=== PATIENT | female | born 1970 | race Caucasian/White ===

== ENCOUNTER 2021-02-06 19:47 | Inpatient (IN) ==
[2021-02-06] MEDS ORDERED: SODIUM CHLORIDE 0.9% 500 ML IV SCH (21:45)
[2021-02-06] MEDS ORDERED: OPTIRAY 320 125ml IV ONE (21:59)
--- NOTE | 2021-02-06 22:02 | Emergency Department Note ---
Impression & Plan Dizziness, Stroke determined by clinical assessment, Facial droop ED Provider Note Provider: Jimy Lutz MD DATE OF SERVICE: 02/06/2021 CHIEF COMPLAINT: Dizziness, vision changes, fatigue HISTORY OF PRESENT ILLNESS: Patient is a 50-year-old female denies past medical history presenting here today stating just after 6:00 at around 6:10 PM began to feel dizzy and had visual changes while at work. Went to a friend's house and was driven here for further evaluation in a private vehicle. Denies nausea currently or any pain. Denies trauma. Denies fever or recent illness. Denies a history of similar. Reports that she had vomited several times earlier in the car on the way over but denies again nausea now. Denies abdominal pain or chest pain or difficulty breathing. Friend states that patient has seemed to worsen some and now seems to have some slight right facial droop and speech slurring and seemed more fatigued alerting nursing staff. Was alerted by nursing staff and came to see the patient at bedside. REVIEW OF SYSTEMS: A total of 10 review of systems was obtained and negative except as stated above in the HPI. 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 Head: normocephalic and atraumatic EYES: No injection, discharge or icterus. PERRL but has some disconjugate gaze with the left eye with some left lateral gaze preference. NECK: Trachea midline. Supple. ENT: Mucous membranes pink and moist. LUNGS: Airway patent. No retractions. Breath sounds clear HEART: Regular rate and rhythm. No chest wall tenderness ABDOMEN: Soft and non-tender, without guarding or rebound. SKIN: Acyanotic, warm, dry, without rashes EXTREMITIES: Without swelling, tenderness or deformity NEUROLOGICAL: No aphasia. Alert and oriented to location and events. Some slurred speech and some mild right facial droop at this time. Some slight drift in the right lower extremity as well as some slight weakness of the right upper extremity compared to left. Sensation to gross touch normal per her report in the extremities and face EK bpm normal sinus rhythm. No PVC or PAC. No acute ST segment elevation or depression. QTC 445. No previous available. CONTINUOUS CARDIAC MONITORING: was ordered and showed a heart rate of 70s bpm in normal sinus rhythm Patient's laboratory studies and imaging reviewed. Differential includes Infection, dehydration, metabolic abnormality, hypo/hyperglycemia, electrolyte disturbance, anemia, hypoxia, cardiac sources, intracerebral event, toxicologic, neurologic, as well as other pathologies. IMPRESSION/MEDICAL DECISION MAKING: Patient presents with acute onset of fatigue vision changes and dizziness with several episodes of vomiting approximately 6:10 PM today. Driven here in a private vehicle it was seen by myself around 9:50 PM after being alerted by nursing to some status changes on this patient while she was waiting due to high volume and acuity in the emergency department. Patient appears to have some disconjugate gaze appears somewhat fatigued with some slurring speech and slight right facial droop. Some slight right-sided weakness is appreciated. No total hemiplegia appreciated. No trauma reported. Does not appear meningitic. Question of this could be CVA and a stroke alert was immediately called upon my evaluation of the patient in the room. Taken to CT for immediate imaging. Blood work was sent. Could be a toxicologic or metabolic cause as well and blood work was sent. Discussed with telestroke at [place], Dr. Hammer. CT and CTAs were completed. No high-grade occlusion per stat rad on the CTAs. No acute intracranial bleed noted. Blood work returns with white blood cell count of 11.1. No anemia. No thrombocytopenia. Glucose within normal limits at 91. No transaminitis. No severe electrolyte abnormality. Thyroid function within normal limits. Patient exam again seems to have some slight right focality but does also appear to have some generally fatigued and nonfocal component. Alcohol level is undetectable. Again CT without evidence of intracranial bleed or large mass. Discussed with telestroke Dr Hammer. Patient unfortunately at this time outside the 3-hour window for TPA and within minutes of the 4-1/2-hour window clsoing do not feel she would be able to receive TPA in the window and this is not a reasonable option at this time in discussion with telestroke. NIH is mild at this point telestroke describes as approximately 5. No evidence of severe electrolyte abnormality. Again does not appear meningitic and do not feel she needs an LP at this point. Discussed with friend who is at bedside as well as the patient was actually appearing somewhat more alert. Again CTAs without evidence of acute basilar or vertebral occlusion at this time. Question of small possible brainstem stroke. Discussed with the patient. Patient fails swallow secondary to the facial droop and speech issues thus rectal aspirin ordered. Discussed with the patient the need for further work-up here as an inpatient. She was in agreement with this plan. DIAGNOSIS: Dizziness, stroke DISPOSITION: Hospitalist will evaluate Patient was agreeable with this plan. Preliminary Findings Only See Final Report For Complete Findings CTA NECK: No arterial occlusion, high-grade stenosis, aneurysm, or dissection. Emphysematous changes in the lungs. Radiologist: Deondre Almendarez MD Study ready at 22:16 and initial results transmitted at 22:22 Preliminary Findings Only See Final Report For Complete Findings CTA HEAD: No arterial occlusion, high-grade stenosis, aneurysm, or dissection. Radiologist: Deondre Almendarez MD Study ready at 22:17 and initial results transmitted at 22:20 Preliminary Findings Only See Final Report For Complete Findings CT HEAD: No acute intracranial hemorrhage, hydrocephalus, edema, mass effect, or acute cortical infarct. Mild scattered paranasal sinus mucosal thickening. Mastoid air cells are clear. Radiologist: Deondre Almendarez MD Study ready at 22:18 and initial results transmitted at 22:23 Past Med/Surg History Social History Smoking Status: Current every day smoker Preferred Language: French Feels Safe at Home: Yes Allergies Allergies Allergy/AdvReac Type Severity Reaction Status Date / Time No Known Allergies Allergy Verified 02/06/21 20:41 Home Meds Home Medications Medication Instructions Recorded Confirmed No Known Home Medications 02/06/21 02/06/21 Results & Data (ED) Vital Signs Vital Signs - 24 hr 02/06/21 19:50 02/06/21 20:30 02/06/21 20:36 Temperature 36.7 C Temperature Source Temporal Artery Scan Pulse Rate 72 70 71 Pulse Rate from SpO2 Sensor 70 71 Pulse Rhythm Respiratory Rate 20 25 H 17 Respiratory Effort / Characteristics Non-Labored Spontaneous Respiratory Depth Normal Blood Pressure 151/91 H 124/84 Blood Pressure Mean 111 97 Blood Pressure Position Standing Pulse Oximetry 98 93 93 Oxygen Delivery Method Room Air Sepsis New/Unexplained Change in Mental Status N/A Sepsis Action Taken by Nursing No Action Required 02/06/21 20:40 02/06/21 20:50 02/06/21 21:00 Temperature Temperature Source Pulse Rate 69 80 71 Pulse Rate from SpO2 Sensor 73 72 Pulse Rhythm Respiratory Rate 22 18 23 Respiratory Effort / Characteristics Respiratory Depth Blood Pressure Blood Pressure Mean Blood Pressure Position Pulse Oximetry 95 94 Oxygen Delivery Method Room Air Room Air Room Air Sepsis New/Unexplained Change in Mental Status Sepsis Action Taken by Nursing 02/06/21 21:10 02/06/21 21:20 02/06/21 21:30 Temperature Temperature Source Pulse Rate 71 72 70 Pulse Rate from SpO2 Sensor 71 72 70 Pulse Rhythm Respiratory Rate 22 20 20 Respiratory Effort / Characteristics Respiratory Depth Blood Pressure Blood Pressure Mean Blood Pressure Position Pulse Oximetry 95 94 94 Oxygen Delivery Method Room Air Room Air Room Air Sepsis New/Unexplained Change in Mental Status Sepsis Action Taken by Nursing 02/06/21 21:40 02/06/21 21:41 02/06/21 21:50 Temperature Temperature Source Pulse Rate 70 71 71 Pulse Rate from SpO2 Sensor 72 72 Pulse Rhythm Regular Respiratory Rate 19 17 21 Respiratory Effort / Characteristics Respiratory Depth Blood Pressure Blood Pressure Mean Blood Pressure Position Pulse Oximetry 96 93 97 Oxygen Delivery Method Room Air Room Air Room Air Sepsis New/Unexplained Change in Mental Status Sepsis Action Taken by Nursing 02/06/21 22:04 02/06/21 22:09 02/06/21 22:11 Temperature Temperature Source Pulse Rate 81 81 Pulse Rate from SpO2 Sensor 79 Pulse Rhythm Respiratory Rate 22 29 H Respiratory Effort / Characteristics Respiratory Depth Blood Pressure 178/98 H Blood Pressure Mean 124 Blood Pressure Position Pulse Oximetry 98 Oxygen Delivery Method Room Air Room Air Room Air Sepsis New/Unexplained Change in Mental Status Sepsis Action Taken by Nursing 02/06/21 22:15 02/06/21 22:20 02/06/21 22:29 Temperature Temperature Source Pulse Rate 80 75 78 Pulse Rate from SpO2 Sensor 78 75 78 Pulse Rhythm Respiratory Rate 22 23 17 Respiratory Effort / Characteristics Respiratory Depth Blood Pressure 157/100 H 176/101 H Blood Pressure Mean 119 126 Blood Pressure Position Pulse Oximetry 99 98 97 Oxygen Delivery Method Room Air Room Air Room Air Sepsis New/Unexplained Change in Mental Status Sepsis Action Taken by Nursing 02/06/21 22:30 02/06/21 22:32 02/06/21 22:40 Temperature Temperature Source Pulse Rate 75 74 82 Pulse Rate from SpO2 Sensor 75 74 77 Pulse Rhythm Respiratory Rate 19 18 15 Respiratory Effort / Characteristics Respiratory Depth Blood Pressure 164/97 H Blood Pressure Mean 119 Blood Pressure Position Pulse Oximetry 98 97 95 Oxygen Delivery Method Room Air Room Air Room Air Sepsis New/Unexplained Change in Mental Status Sepsis Action Taken by Nursing 02/06/21 22:45 02/06/21 22:50 02/06/21 23:00 Temperature Temperature Source Pulse Rate 76 73 82 Pulse Rate from SpO2 Sensor 76 72 82 Pulse Rhythm Respiratory Rate 21 12 20 Respiratory Effort / Characteristics Respiratory Depth Blood Pressure 146/95 H 167/104 H Blood Pressure Mean 112 125 Blood Pressure Position Pulse Oximetry 98 98 98 Oxygen Delivery Method Room Air Room Air Room Air Sepsis New/Unexplained Change in Mental Status Sepsis Action Taken by Nursing 02/06/21 23:10 02/06/21 23:15 02/06/21 23:20 Temperature Temperature Source Pulse Rate 81 79 74 Pulse Rate from SpO2 Sensor 81 78 74 Pulse Rhythm Respiratory Rate 17 19 15 Respiratory Effort / Characteristics Respiratory Depth Blood Pressure 149/94 H Blood Pressure Mean 112 Blood Pressure Position Pulse Oximetry 98 98 98 Oxygen Delivery Method Room Air Room Air Room Air Sepsis New/Unexplained Change in Mental Status Sepsis Action Taken by Nursing Laboratory Data Result diagrams: 02/06/21 22:14 02/06/21 22:14 Lab Results 02/06/21 02/06/21 02/06/21 Range/Units 20:34 22:14 22:14 WBC 11.11 H (4.8-10.8) K/uL RBC 4.31 (4.2-5.4) M/uL Hgb 14.3 (12.0-16.0) g/dL Hct 41.1 (37-47) % MCV 95.4 (80-100) fL MCH 33.2 (25-34) pg MCHC 34.8 (32-36) g/dL RDW Std Deviation 45.0 (36.4-46.3) fL RDW Coeff of Kera 12.8 (11.5-14.5) % Plt Count 277 (130-400) K/uL MPV 9.0 (7.4-10.4) fL Immature Gran % (Auto) 0.2 % Neut % (Auto) 71.6 % Lymph % (Auto) 20.5 % [place] % (Auto) 5.5 % Eos % (Auto) 1.8 % Baso % (Auto) 0.4 % Neut # (Auto) 7.96 H (1.4-6.5) K/uL Lymph # (Auto) 2.28 (1.2-3.4) K/uL [place] # (Auto) 0.61 H (0.11-0.59) K/uL Eos # (Auto) 0.20 (0-0.5) K/uL Baso # (Auto) 0.04 (0-0.2) K/uL Immature Gran # (Auto) 0.02 (0.00-0.02) K/uL PT 10.5 (9.0-12.0) Seconds INR 1.0 (0.9-1.1) Sodium (136-145) mmol/L Potassium (3.5-5.1) mmol/L Chloride (98-107) mmol/L Carbon Dioxide (21-32) mmol/L Anion Gap (3-11) BUN (7-18) mg/dl Creatinine (0.6-1.2) mg/dl Est Cr Clr Drug Dosing ml/min Est GFR ( Amer) Est GFR (Non-Af Amer) BUN/Creatinine Ratio (10-20) Glucose (70-99) mg/dl POC Glucose 111 H (70-99) mg/dl Lactate (0.4-2.0) mmol/L Calcium (8.5-10.1) mg/dl Magnesium (1.8-2.4) mg/dl Total Bilirubin (0.2-1) mg/dl AST (15-37) U/L ALT (12-78) U/L Alkaline Phosphatase (45-117) U/L Troponin I (0-0.045) ng/ml Total Protein (6.4-8.2) gm/dl Albumin (3.4-5.0) gm/dl Globulin (2.5-4.0) gm/dl Albumin/Globulin Ratio (0.9-2) Lipase (73-393) U/L Procalcitonin (0-0.5) ng/ml TSH (0.300-4.500) uIu/ml Specimen Hemolysis Urine Color Urine Appearance (Clear) Urine pH (4.5-7.5) Ur Specific [place] (1.000-1.030) Urine Protein (Negative) Urine Glucose (UA) (Negative) Urine Ketones (Negative) Urine Blood (Negative) Urine Nitrite (Negative) Urine Bilirubin (Negative) Urine Urobilinogen (Negative) Ur Leukocyte Esterase (Negative) Urine Opiates Screen (Neg) Ur Methadone, Qual (Neg) Urine Barbiturates (Neg) Ur Phencyclidine (PCP) (Neg) U Amphetamin/Meth Scrn (Neg) MDMA (Ecstasy) Screen (Neg) U Benzodiazepines Scrn (Neg) Ur Cocaine Metabolite (Neg) U Marijuana (THC) Screen (Neg) Ethyl Alcohol mg/dL (0-3) mg/dl COVID-19 Eval Order SARS-CoV-2, RNA, NAAT (NEGATIVE) 02/06/21 02/06/21 02/06/21 Range/Units 22:14 22:14 22:14 WBC (4.8-10.8) K/uL RBC (4.2-5.4) M/uL Hgb (12.0-16.0) g/dL Hct (37-47) % MCV (80-100) fL MCH (25-34) pg MCHC (32-36) g/dL RDW Std Deviation (36.4-46.3) fL RDW Coeff of Kera (11.5-14.5) % Plt Count (130-400) K/uL MPV (7.4-10.4) fL Immature Gran % (Auto) % Neut % (Auto) % Lymph % (Auto) % [place] % (Auto) % Eos % (Auto) % Baso % (Auto) % Neut # (Auto) (1.4-6.5) K/uL Lymph # (Auto) (1.2-3.4) K/uL [place] # (Auto) (0.11-0.59) K/uL Eos # (Auto) (0-0.5) K/uL Baso # (Auto) (0-0.2) K/uL Immature Gran # (Auto) (0.00-0.02) K/uL PT (9.0-12.0) Seconds INR (0.9-1.1) Sodium 135 L (136-145) mmol/L Potassium 3.7 (3.5-5.1) mmol/L Chloride 105 (98-107) mmol/L Carbon Dioxide 27 (21-32) mmol/L Anion Gap 3.0 (3-11) BUN 8 (7-18) mg/dl Creatinine 0.73 (0.6-1.2) mg/dl Est Cr Clr Drug Dosing 64.3 ml/min Est GFR ( Amer) 112.9 Est GFR (Non-Af Amer) 97.4 BUN/Creatinine Ratio 11.4 (10-20) Glucose 88 (70-99) mg/dl POC Glucose (70-99) mg/dl Lactate (0.4-2.0) mmol/L Calcium 8.2 L (8.5-10.1) mg/dl Magnesium 2.1 (1.8-2.4) mg/dl Total Bilirubin 0.4 (0.2-1) mg/dl AST 6 L (15-37) U/L ALT 8 L (12-78) U/L Alkaline Phosphatase 46 (45-117) U/L Troponin I < 0.015 (0-0.045) ng/ml Total Protein 6.2 L (6.4-8.2) gm/dl Albumin 3.1 L (3.4-5.0) gm/dl Globulin 3.1 (2.5-4.0) gm/dl Albumin/Globulin Ratio 1.0 (0.9-2) Lipase 496 H (73-393) U/L Procalcitonin < 0.05 (0-0.5) ng/ml TSH 0.372 (0.300-4.500) uIu/ml Specimen Hemolysis Urine Color Urine Appearance (Clear) Urine pH (4.5-7.5) Ur Specific [place] (1.000-1.030) Urine Protein (Negative) Urine Glucose (UA) (Negative) Urine Ketones (Negative) Urine Blood (Negative) Urine Nitrite (Negative) Urine Bilirubin (Negative) Urine Urobilinogen (Negative) Ur Leukocyte Esterase (Negative) Urine Opiates Screen (Neg) Ur Methadone, Qual (Neg) Urine Barbiturates (Neg) Ur Phencyclidine (PCP) (Neg) U Amphetamin/Meth Scrn (Neg) MDMA (Ecstasy) Screen (Neg) U Benzodiazepines Scrn (Neg) Ur Cocaine Metabolite (Neg) U Marijuana (THC) Screen (Neg) Ethyl Alcohol mg/dL (0-3) mg/dl COVID-19 Eval Order SARS-CoV-2, RNA, NAAT (NEGATIVE) 03/16/21 03/16/21 03/16/21 Range/Units 22:14 22:15 22:29 WBC (4.8-10.8) K/uL RBC (4.2-5.4) M/uL Hgb (12.0-16.0) g/dL Hct (37-47) % MCV (80-100) fL MCH (25-34) pg MCHC (32-36) g/dL RDW Std Deviation (36.4-46.3) fL RDW Coeff of Kera (11.5-14.5) % Plt Count (130-400) K/uL MPV (7.4-10.4) fL Immature Gran % (Auto) % Neut % (Auto) % Lymph % (Auto) % [place] % (Auto) % Eos % (Auto) % Baso % (Auto) % Neut # (Auto) (1.4-6.5) K/uL Lymph # (Auto) (1.2-3.4) K/uL [place] # (Auto) (0.11-0.59) K/uL Eos # (Auto) (0-0.5) K/uL Baso # (Auto) (0-0.2) K/uL Immature Gran # (Auto) (0.00-0.02) K/uL PT (9.0-12.0) Seconds INR (0.9-1.1) Sodium (136-145) mmol/L Potassium (3.5-5.1) mmol/L Chloride (98-107) mmol/L Carbon Dioxide (21-32) mmol/L Anion Gap (3-11) BUN (7-18) mg/dl Creatinine (0.6-1.2) mg/dl Est Cr Clr Drug Dosing ml/min Est GFR ( Amer) Est GFR (Non-Af Amer) BUN/Creatinine Ratio (10-20) Glucose (70-99) mg/dl POC Glucose 91 (70-99) mg/dl Lactate (0.4-2.0) mmol/L Calcium (8.5-10.1) mg/dl Magnesium (1.8-2.4) mg/dl Total Bilirubin (0.2-1) mg/dl AST (15-37) U/L ALT (12-78) U/L Alkaline Phosphatase (45-117) U/L Troponin I (0-0.045) ng/ml Total Protein (6.4-8.2) gm/dl Albumin (3.4-5.0) gm/dl Globulin (2.5-4.0) gm/dl Albumin/Globulin Ratio (0.9-2) Lipase (73-393) U/L Procalcitonin (0-0.5) ng/ml TSH (0.300-4.500) uIu/ml Specimen Hemolysis Urine Color Urine Appearance (Clear) Urine pH (4.5-7.5) Ur Specific [place] (1.000-1.030) Urine Protein (Negative) Urine Glucose (UA) (Negative) Urine Ketones (Negative) Urine Blood (Negative) Urine Nitrite (Negative) Urine Bilirubin (Negative) Urine Urobilinogen (Negative) Ur Leukocyte Esterase (Negative) Urine Opiates Screen (Neg) Ur Methadone, Qual (Neg) Urine Barbiturates (Neg) Ur Phencyclidine (PCP) (Neg) U Amphetamin/Meth Scrn (Neg) MDMA (Ecstasy) Screen (Neg) U Benzodiazepines Scrn (Neg) Ur Cocaine Metabolite (Neg) U Marijuana (THC) Screen (Neg) Ethyl Alcohol mg/dL < 3.0 (0-3) mg/dl COVID-19 Eval Order Covid19 IDNow [email or web address] SARS-CoV-2, RNA, NAAT (NEGATIVE) 02/06/21 02/06/21 02/06/21 Range/Units 22:29 22:44 22:44 WBC (4.8-10.8) K/uL RBC (4.2-5.4) M/uL Hgb (12.0-16.0) g/dL Hct (37-47) % MCV (80-100) fL MCH (25-34) pg MCHC (32-36) g/dL RDW Std Deviation (36.4-46.3) fL RDW Coeff of Kera (11.5-14.5) % Plt Count (130-400) K/uL MPV (7.4-10.4) fL Immature Gran % (Auto) % Neut % (Auto) % Lymph % (Auto) % [place] % (Auto) % Eos % (Auto) % Baso % (Auto) % Neut # (Auto) (1.4-6.5) K/uL Lymph # (Auto) (1.2-3.4) K/uL [place] # (Auto) (0.11-0.59) K/uL Eos # (Auto) (0-0.5) K/uL Baso # (Auto) (0-0.2) K/uL Immature Gran # (Auto) (0.00-0.02) K/uL PT (9.0-12.0) Seconds INR (0.9-1.1) Sodium (136-145) mmol/L Potassium (3.5-5.1) mmol/L Chloride (98-107) mmol/L Carbon Dioxide (21-32) mmol/L Anion Gap (3-11) BUN (7-18) mg/dl Creatinine (0.6-1.2) mg/dl Est Cr Clr Drug Dosing ml/min Est GFR ( Amer) Est GFR (Non-Af Amer) BUN/Creatinine Ratio (10-20) Glucose (70-99) mg/dl POC Glucose (70-99) mg/dl Lactate (0.4-2.0) mmol/L Calcium (8.5-10.1) mg/dl Magnesium (1.8-2.4) mg/dl Total Bilirubin (0.2-1) mg/dl AST (15-37) U/L ALT (12-78) U/L Alkaline Phosphatase (45-117) U/L Troponin I (0-0.045) ng/ml Total Protein (6.4-8.2) gm/dl Albumin (3.4-5.0) gm/dl Globulin (2.5-4.0) gm/dl Albumin/Globulin Ratio (0.9-2) Lipase (73-393) U/L Procalcitonin (0-0.5) ng/ml TSH (0.300-4.500) uIu/ml Specimen Hemolysis Urine Color Yellow Urine Appearance Clear (Clear) Urine pH 7.0 (4.5-7.5) Ur Specific [place] > 1.045 H (1.000-1.030) Urine Protein Negative (Negative) Urine Glucose (UA) Negative (Negative) Urine Ketones Negative (Negative) Urine Blood Negative (Negative) Urine Nitrite Negative (Negative) Urine Bilirubin Negative (Negative) Urine Urobilinogen Negative (Negative) Ur Leukocyte Esterase Negative (Negative) Urine Opiates Screen Neg (Neg) Ur Methadone, Qual Neg (Neg) Urine Barbiturates Neg (Neg) Ur Phencyclidine (PCP) Neg (Neg) U Amphetamin/Meth Scrn Neg (Neg) MDMA (Ecstasy) Screen Neg (Neg) U Benzodiazepines Scrn Neg (Neg) Ur Cocaine Metabolite Neg (Neg) U Marijuana (THC) Screen Pos H (Neg) Ethyl Alcohol mg/dL (0-3) mg/dl COVID-19 Eval Order SARS-CoV-2, RNA, NAAT NEGATIVE (NEGATIVE) Administered Medications Discontinued Medications Aspirin (Aspirin 300 Mg Supp) 300 mg [place] ONE ONE Stop: 02/06/21 22:37 Last Admin: 02/06/21 22:51 Dose: 300 mg Documented by: [id number] Sodium Chloride (Nss) 500 mls @ 999 mls/hr IV .Q31M JULITO Stop: 02/06/21 22:15 Last Infusion: 02/06/21 23:20 Dose: 0 mls/hr Documented by: [id number] Admin: 02/06/21 22:47 Dose: 999 mls/hr Documented by: [id number] Ioversol (Optiray 320 125ml) 119 ml IV ONCE ONE Stop: 02/06/21 22:00 Last Admin: 02/06/21 22:00 Dose: 119 ml Documented by: [id number] Discharge Plan Visit Data Chief Complaint: Illness Stated Complaint: hypertension, vomiting, vision problems ED Provider: Jimy Lutz Discharge Problem: Dizziness, Stroke determined by clinical assessment, Facial droop Patient Disposition: Being Evaluated by Hospitalist Forms Stand Alone Forms: [facility] Prescriptions Prescriptions: No Action No Known Home Medications RF: 0 Referrals Referrals: Kristopher Newsome DO [Outside Practitioners] -
[2021-02-06 22:27] LABS: Basophils # (auto) 0.04 K/uL (0-0.2); Basophils % (auto) 0.4 %; Eosinophils % (auto) 1.8 %; Hematocrit (blood only) 41.1 % (37-47); Hemoglobin 14.3 g/dL (12.0-16.0); Immature Granulocytes # (auto) 0.02 K/uL (0.00-0.02); Immature Granulocytes % (auto) 0.2 %; Lymphocytes # (auto) 2.28 K/uL (1.2-3.4); Lymphocytes % (auto) 20.5 %; Mean Corpuscular Hemoglobin 33.2 pg (25-34); Mean Corpuscular Hgb Conc 34.8 g/dL (32-36); Mean Corpuscular Volume 95.4 fL (80-100); Monocytes # (auto) 0.61 K/uL (0.11-0.59); Monocytes % (auto) 5.5 %; Neutrophils # (auto) 7.96 K/uL (1.4-6.5); Neutrophils % (auto) 71.6 %; Platelet Count 277 K/uL (130-400); RDW Coefficient of Variation 12.8 % (11.5-14.5); Red Blood Count 4.31 M/uL (4.2-5.4); White Blood Count 11.11 K/uL (4.8-10.8)
[2021-02-06 22:36] LABS: Prothrombin Time 10.5 Seconds (9.0-12.0)
[2021-02-06] MEDS ORDERED: ASPIRIN 300 MG SUPP PR ONE (22:36)
[2021-02-06 22:47] LABS: Alanine Aminotransferase 8 U/L (12-78); Albumin Level 3.1 gm/dl (3.4-5.0); Aspartate Aminotransferase 6 U/L (15-37); BUN Creatinine Ratio 11.4 (10-20); Blood Urea Nitrogen 8 mg/dl (7-18); Calcium 8.2 mg/dl (8.5-10.1); Carbon Dioxide 27 mmol/L (21-32); Chloride 105 mmol/L (98-107); Creatinine Clr Calc Pharmacy 64.3 ml/min; Est GFR (African American) 112.9; Est GFR (Non-African American) 97.4; Glucose 88 mg/dl (70-99); Lipase 496 U/L (73-393); Magnesium 2.1 mg/dl (1.8-2.4); Potassium 3.7 mmol/L (3.5-5.1); Sodium 135 mmol/L (136-145)
[2021-02-06 22:53] LABS: Appearance Urine Clear (Clear); Bilirubin Urine Negative (Negative); Blood Urine Negative (Negative); Color Urine Yellow; Glucose Urine UA Negative (Negative); Ketones Urine Negative (Negative); Leukocyte Esterase Urine Negative (Negative); Nitrite Urine Negative (Negative); Protein Urine Negative (Negative); Specific Gravity Urine > 1.045 (1.000-1.030); Urobilinogen Urine Negative (Negative)
[2021-02-06 22:57] LABS: Alkaline Phosphatase 46 U/L (45-117); Bilirubin,Total 0.4 mg/dl (0.2-1); Globulin 3.1 gm/dl (2.5-4.0); Thyroid Stimulating Hormone 0.372 uIu/ml (0.300-4.500); Total Protein 6.2 gm/dl (6.4-8.2); Troponin I < 0.015 ng/ml (0-0.045)
[2021-02-06 23:11] LABS: Amphetamines+Metham, Urine Neg (Neg); Barbiturates, Urine Neg (Neg); Benzodiazepine, Urine Neg (Neg); Cocaine, Urine Neg (Neg); MDMA (Ecstacy), Urine Neg (Neg); Methadone, Urine Neg (Neg); Opiate, Urine Neg (Neg); Phencyclidine, Urine Neg (Neg)
--- NOTE | 2021-02-06 23:14 | History & Physical Report ---
Date of Service February 06, 2021 Assessment & Plan (1) CVA (cerebral vascular accident): 50 yo F no significant PMHx admitted for CVA work up. CVA: -Patient with dizziness, double vision, mild right sided weakness. -Telestroke consult placed, CT Head and CTA Head/Neck without acute findings. -Echo, Hgb A1c, and Lipid panel ordered for AM labs. -NPO until cleared by speech, then start daily aspirin and Plavix. -Atorvastatin 40mg daily ordered for when tolerates PO. -Neurology consult placed. -PT/OT orders placed. -Frequent neuro checks per protocol. Code Status: FULL CODE FEN: NPO until cleared by Speech DVT ppx: SCDs Dispo: Telemetry for Stroke Evaluation History of Present Illness Chief Complaint: double vision, dizziness, R sided weakness Primary Care Provider: Kristopher Newsome DO 50. yo F no significant PMHx presented to ER for complaints of dizziness, right sided facial droop, and diplopia. 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 A few hours after that she was with her friend and her friend mentioned that she thought she might have a facial droop on the right side, so she came to the ER. Was seen by ER provider around 9:50pm after being alerted by nursing to some status changes while she was waiting due to high volume and acuity in the emergency department. Stroke alert called. CT Head and CTA Head and Neck without acute findings. CBC and BMP within normal limits. Ethanol level normal, marijuana positive. Telestroke consult recommended MRI and inpatient admission for monitoring with possible concern for brainstem stroke. Patient was not a candidate for TPA due to being out of time interval. Hospitalist service consulted for admission. On my interview patient reports chest pain, shortness of breath, abdominal pain, nausea, headache. Does still endorse double vision, but reports that her right sided weakness feels somewhat better. Allergies Allergy/AdvReac Type Severity Reaction Status Date / Time No Known Allergies Allergy Verified 02/06/21 20:41 Home Medications Medication Instructions Recorded Confirmed Type No Known Home Medications 02/06/21 02/06/21 History Past Med/Surg History Medical History (Updated 02/07/21 @ 00:06 by Yaima Sutherland DO) No significant past medical history Surgical History (Updated 02/07/21 @ 00:07 by Yaima Sutherland DO) No significant past surgical history Family History (Updated 02/07/21 @ 00:06 by Yaima Sutherland DO) Other Coronary heart disease Diabetes Social History Smoking Status: Current every day smoker Preferred Language: Mongolian Feels Safe at Home: Yes Review of Systems Review of Systems: All systems reviewed & are unremarkable except as noted in HPI & below Constitutional: no fever, no chills and no malaise Respiratory: no cough and no dyspnea Cardiovascular: no chest pain, no palpitations and no edema Gastrointestinal: no abdominal pain, no constipation and no diarrhea/loose stools Genitourinary: no dysuria and no hematuria Physical Exam Constitutional: WD/WN, vitals as above Eyes: PERRL, conjunctivae normal, anicteric sclerae ENMT: external ear and nose normal, oropharynx normal Neck: normal visual inspection Respiratory: normal respiratory effort, lungs clear to auscultation Cardiovascular: RRR, no murmur, no edema Gastrointestinal (Abdomen): normal bowel sounds, soft, nontender, no hepatosplenomegaly Musculoskeletal: no cyanosis or clubbing. RUE and RLE 4/5 strength as compared to left side. Skin: no rashes, warm and dry Neurologic: AAOx3, normal speech. Right sided mild facial droop noted, which resolves with smile. PERRLA, EOMI, no nystagmus. Reports double vision. Noted to have dysconjugate gaze. Bilateral UE, LE, and face without sensory deficits. No pronator drift. No tremor. Psychiatric: A+Ox3, euthymic affect Results & Data Results & Data ([facility]) Vital Signs (Past 12 Hours) Vital Signs Temp Pulse Resp BP Pulse Ox 02/06/21 21:41 71 17 93 02/06/21 20:36 71 17 93 02/06/21 20:30 70 25 H 124/84 93 02/06/21 19:50 36.7 C 72 20 151/91 H 98 Laboratory Results Lab Results 02/06/21 02/06/21 02/06/21 Range/Units 20:34 22:14 22:14 WBC 11.11 H (4.8-10.8) K/uL RBC 4.31 (4.2-5.4) M/uL Hgb 14.3 (12.0-16.0) g/dL Hct 41.1 (37-47) % MCV 95.4 (80-100) fL MCH 33.2 (25-34) pg MCHC 34.8 (32-36) g/dL RDW Std Deviation 45.0 (36.4-46.3) fL RDW Coeff of Kera 12.8 (11.5-14.5) % Plt Count 277 (130-400) K/uL MPV 9.0 (7.4-10.4) fL Immature Gran % (Auto) 0.2 % Neut % (Auto) 71.6 % Lymph % (Auto) 20.5 % [place] % (Auto) 5.5 % Eos % (Auto) 1.8 % Baso % (Auto) 0.4 % Neut # (Auto) 7.96 H (1.4-6.5) K/uL Lymph # (Auto) 2.28 (1.2-3.4) K/uL [place] # (Auto) 0.61 H (0.11-0.59) K/uL Eos # (Auto) 0.20 (0-0.5) K/uL Baso # (Auto) 0.04 (0-0.2) K/uL Immature Gran # (Auto) 0.02 (0.00-0.02) K/uL PT 10.5 (9.0-12.0) Seconds INR 1.0 (0.9-1.1) Sodium (136-145) mmol/L Potassium (3.5-5.1) mmol/L Chloride (98-107) mmol/L Carbon Dioxide (21-32) mmol/L Anion Gap (3-11) BUN (7-18) mg/dl Creatinine (0.6-1.2) mg/dl Est Cr Clr Drug Dosing ml/min Est GFR ( Amer) Est GFR (Non-Af Amer) BUN/Creatinine Ratio (10-20) Glucose (70-99) mg/dl POC Glucose 111 H (70-99) mg/dl Lactate (0.4-2.0) mmol/L Calcium (8.5-10.1) mg/dl Magnesium (1.8-2.4) mg/dl Total Bilirubin (0.2-1) mg/dl AST (15-37) U/L ALT (12-78) U/L Alkaline Phosphatase (45-117) U/L Troponin I (0-0.045) ng/ml Total Protein (6.4-8.2) gm/dl Albumin (3.4-5.0) gm/dl Globulin (2.5-4.0) gm/dl Albumin/Globulin Ratio (0.9-2) Lipase (73-393) U/L Procalcitonin (0-0.5) ng/ml TSH (0.300-4.500) uIu/ml Specimen Hemolysis Urine Color Urine Appearance (Clear) Urine pH (4.5-7.5) Ur Specific [place] (1.000-1.030) Urine Protein (Negative) Urine Glucose (UA) (Negative) Urine Ketones (Negative) Urine Blood (Negative) Urine Nitrite (Negative) Urine Bilirubin (Negative) Urine Urobilinogen (Negative) Ur Leukocyte Esterase (Negative) Urine Opiates Screen (Neg) Ur Methadone, Qual (Neg) Urine Barbiturates (Neg) Ur Phencyclidine (PCP) (Neg) U Amphetamin/Meth Scrn (Neg) MDMA (Ecstasy) Screen (Neg) U Benzodiazepines Scrn (Neg) Ur Cocaine Metabolite (Neg) U Marijuana (THC) Screen (Neg) Ethyl Alcohol mg/dL (0-3) mg/dl COVID-19 Eval Order SARS-CoV-2, RNA, NAAT (NEGATIVE) 02/06/21 02/06/21 02/06/21 Range/Units 22:14 22:14 22:14 WBC (4.8-10.8) K/uL RBC (4.2-5.4) M/uL Hgb (12.0-16.0) g/dL Hct (37-47) % MCV (80-100) fL MCH (25-34) pg MCHC (32-36) g/dL RDW Std Deviation (36.4-46.3) fL RDW Coeff of K[place] (11.5-14.5) % Plt Count (130-400) K/uL MPV (7.4-10.4) fL Immature Gran % (Auto) % Neut % (Auto) % Lymph % (Auto) % [place] % (Auto) % Eos % (Auto) % Baso % (Auto) % Neut # (Auto) (1.4-6.5) K/uL Lymph # (Auto) (1.2-3.4) K/uL [place] # (Auto) (0.11-0.59) K/uL Eos # (Auto) (0-0.5) K/uL Baso # (Auto) (0-0.2) K/uL Immature Gran # (Auto) (0.00-0.02) K/uL PT (9.0-12.0) Seconds INR (0.9-1.1) Sodium 135 L (136-145) mmol/L Potassium 3.7 (3.5-5.1) mmol/L Chloride 105 (98-107) mmol/L Carbon Dioxide 27 (21-32) mmol/L Anion Gap 3.0 (3-11) BUN 8 (7-18) mg/dl Creatinine 0.73 (0.6-1.2) mg/dl Est Cr Clr Drug Dosing 64.3 ml/min Est GFR ( Amer) 112.9 Est GFR (Non-Af Amer) 97.4 BUN/Creatinine Ratio 11.4 (10-20) Glucose 88 (70-99) mg/dl POC Glucose (70-99) mg/dl Lactate (0.4-2.0) mmol/L Calcium 8.2 L (8.5-10.1) mg/dl Magnesium 2.1 (1.8-2.4) mg/dl Total Bilirubin 0.4 (0.2-1) mg/dl AST 6 L (15-37) U/L ALT 8 L (12-78) U/L Alkaline Phosphatase 46 (45-117) U/L Troponin I < 0.015 (0-0.045) ng/ml Total Protein 6.2 L (6.4-8.2) gm/dl Albumin 3.1 L (3.4-5.0) gm/dl Globulin 3.1 (2.5-4.0) gm/dl Albumin/Globulin Ratio 1.0 (0.9-2) Lipase 496 H (73-393) U/L Procalcitonin < 0.05 (0-0.5) ng/ml TSH 0.372 (0.300-4.500) uIu/ml Specimen Hemolysis Urine Color Urine Appearance (Clear) Urine pH (4.5-7.5) Ur Specific [place] (1.000-1.030) Urine Protein (Negative) Urine Glucose (UA) (Negative) Urine Ketones (Negative) Urine Blood (Negative) Urine Nitrite (Negative) Urine Bilirubin (Negative) Urine Urobilinogen (Negative) Ur Leukocyte Esterase (Negative) Urine Opiates Screen (Neg) Ur Methadone, Qual (Neg) Urine Barbiturates (Neg) Ur Phencyclidine (PCP) (Neg) U Amphetamin/Meth Scrn (Neg) MDMA (Ecstasy) Screen (Neg) U Benzodiazepines Scrn (Neg) Ur Cocaine Metabolite (Neg) U Marijuana (THC) Screen (Neg) Ethyl Alcohol mg/dL (0-3) mg/dl COVID-19 Eval Order SARS-CoV-2, RNA, NAAT (NEGATIVE) 02/06/21 02/06/21 02/06/21 Range/Units 22:14 22:15 22:29 WBC (4.8-10.8) K/uL RBC (4.2-5.4) M/uL Hgb (12.0-16.0) g/dL Hct (37-47) % MCV (80-100) fL MCH (25-34) pg MCHC (32-36) g/dL RDW Std Deviation (36.4-46.3) fL RDW Coeff of [place]era (11.5-14.5) % Plt Count (130-400) K/uL MPV (7.4-10.4) fL Immature Gran % (Auto) % Neut % (Auto) % Lymph % (Auto) % [place] % (Auto) % Eos % (Auto) % Baso % (Auto) % Neut # (Auto) (1.4-6.5) K/uL Lymph # (Auto) (1.2-3.4) K/uL [place] # (Auto) (0.11-0.59) K/uL Eos # (Auto) (0-0.5) K/uL Baso # (Auto) (0-0.2) K/uL Immature Gran # (Auto) (0.00-0.02) K/uL PT (9.0-12.0) Seconds INR (0.9-1.1) Sodium (136-145) mmol/L Potassium (3.5-5.1) mmol/L Chloride (98-107) mmol/L Carbon Dioxide (21-32) mmol/L Anion Gap (3-11) BUN (7-18) mg/dl Creatinine (0.6-1.2) mg/dl Est Cr Clr Drug Dosing ml/min Est GFR ( Amer) Est GFR (Non-Af Amer) BUN/Creatinine Ratio (10-20) Glucose (70-99) mg/dl POC Glucose 91 (70-99) mg/dl Lactate (0.4-2.0) mmol/L Calcium (8.5-10.1) mg/dl Magnesium (1.8-2.4) mg/dl Total Bilirubin (0.2-1) mg/dl AST (15-37) U/L ALT (12-78) U/L Alkaline Phosphatase (45-117) U/L Troponin I (0-0.045) ng/ml Total Protein (6.4-8.2) gm/dl Albumin (3.4-5.0) gm/dl Globulin (2.5-4.0) gm/dl Albumin/Globulin Ratio (0.9-2) Lipase (73-393) U/L Procalcitonin (0-0.5) ng/ml TSH (0.300-4.500) uIu/ml Specimen Hemolysis Urine Color Urine Appearance (Clear) Urine pH (4.5-7.5) Ur Specific [place] (1.000-1.030) Urine Protein (Negative) Urine Glucose (UA) (Negative) Urine Ketones (Negative) Urine Blood (Negative) Urine Nitrite (Negative) Urine Bilirubin (Negative) Urine Urobilinogen (Negative) Ur Leukocyte Esterase (Negative) Urine Opiates Screen (Neg) Ur Methadone, Qual (Neg) Urine Barbiturates (Neg) Ur Phencyclidine (PCP) (Neg) U Amphetamin/Meth Scrn (Neg) MDMA (Ecstasy) Screen (Neg) U Benzodiazepines Scrn (Neg) Ur Cocaine Metabolite (Neg) U Marijuana (THC) Screen (Neg) Ethyl Alcohol mg/dL < 3.0 (0-3) mg/dl COVID-19 Eval [facility] SARS-CoV-2, RNA, NAAT (NEGATIVE) 02/06/21 02/06/21 02/06/21 Range/Units 22:29 22:44 22:44 WBC (4.8-10.8) K/uL RBC (4.2-5.4) M/uL Hgb (12.0-16.0) g/dL Hct (37-47) % MCV (80-100) fL MCH (25-34) pg MCHC (32-36) g/dL RDW Std Deviation (36.4-46.3) fL RDW Coeff of Kera (11.5-14.5) % Plt Count (130-400) K/uL MPV (7.4-10.4) fL Immature Gran % (Auto) % Neut % (Auto) % Lymph % (Auto) % [place] % (Auto) % Eos % (Auto) % Baso % (Auto) % Neut # (Auto) (1.4-6.5) K/uL Lymph # (Auto) (1.2-3.4) K/uL [place] # (Auto) (0.11-0.59) K/uL Eos # (Auto) (0-0.5) K/uL Baso # (Auto) (0-0.2) K/uL Immature Gran # (Auto) (0.00-0.02) K/uL PT (9.0-12.0) Seconds INR (0.9-1.1) Sodium (136-145) mmol/L Potassium (3.5-5.1) mmol/L Chloride (98-107) mmol/L Carbon Dioxide (21-32) mmol/L Anion Gap (3-11) BUN (7-18) mg/dl Creatinine (0.6-1.2) mg/dl Est Cr Clr Drug Dosing ml/min Est GFR ( Amer) Est GFR (Non-Af Amer) BUN/Creatinine Ratio (10-20) Glucose (70-99) mg/dl POC Glucose (70-99) mg/dl Lactate (0.4-2.0) mmol/L Calcium (8.5-10.1) mg/dl Magnesium (1.8-2.4) mg/dl Total Bilirubin (0.2-1) mg/dl AST (15-37) U/L ALT (12-78) U/L Alkaline Phosphatase (45-117) U/L Troponin I (0-0.045) ng/ml Total Protein (6.4-8.2) gm/dl Albumin (3.4-5.0) gm/dl Globulin (2.5-4.0) gm/dl Albumin/Globulin Ratio (0.9-2) Lipase (73-393) U/L Procalcitonin (0-0.5) ng/ml TSH (0.300-4.500) uIu/ml Specimen Hemolysis Urine Color Yellow Urine Appearance Clear (Clear) Urine pH 7.0 (4.5-7.5) Ur Specific [place] > 1.045 H (1.000-1.030) Urine Protein Negative (Negative) Urine Glucose (UA) Negative (Negative) Urine Ketones Negative (Negative) Urine Blood Negative (Negative) Urine Nitrite Negative (Negative) Urine Bilirubin Negative (Negative) Urine Urobilinogen Negative (Negative) Ur Leukocyte Esterase Negative (Negative) Urine Opiates Screen Neg (Neg) Ur Methadone, Qual Neg (Neg) Urine Barbiturates Neg (Neg) Ur Phencyclidine (PCP) Neg (Neg) U Amphetamin/Meth Scrn Neg (Neg) MDMA (Ecstasy) Screen Neg (Neg) U Benzodiazepines Scrn Neg (Neg) Ur Cocaine Metabolite Neg (Neg) U Marijuana (THC) Screen Pos H (Neg) Ethyl Alcohol mg/dL (0-3) mg/dl COVID-19 Eval Order SARS-CoV-2, RNA, NAAT NEGATIVE (NEGATIVE) Diagnostic Findings CTA Head and Neck - Per STAT-rad - no arterial occlusion, high-grade stenosis, aneurysm or dissection. Emphysematous changes in lungs. CT Head - no acute intracranial hemorrhage, hydrocephalus, edema, mass effect or acute cortical infarct. Mild scattered paranasal sinus mucosal thickening. Mastoid air cells are clear. ECG Additional Comments: EKG with NSR, no acute ischemic changes Code Status & VTE Plan VTE Prophylaxis Plan VTE Prophylaxis will be ordered: Yes Supervising Physician Co-Signing Physician Notes Patient seen and examined, chart reviewed, case discussed with Dr. Watts and I agree with her assessment and plan as documented above. Briefly, patient is a 50yo C female with no significant past medical history, +tobacco use with acute onset diplopia, dizziness/fatigue and right sided weakness. On exam she is afebrile, mildly hypertensive otherwise HD stable, NAD HEENT - NC/AT, PERRL, MMM, neck supple Heart - +S1/S2, regular, no m/r/g, no carotid bruits Lungs - CTA Abd - +BS, soft, NT/ND Ext - No edema/clubbing/cyanosis Neuro - patient AA&O x 4, speech intact and appropriate, patient keeps eyes closed as diplopia persists, CN II-XII grossly intact, sensation improved, intact to light touch bilaterally, MS improved, 5/5 in bilateral LE, 4+/5 in RUE Labs and images reviewed Assessment/Plan - CVA/TIA, possibly MS as well -Admit to medical with telemetry -MRI, 2D echo -Lipids, AIC for risk stratification -Tobacco cessation -PT/OT/Speech -Initiate ASA, Plavix and Statin when cleared by Speech -Neuro consultation appreciated -Remainder of plan as above Resident Activity Tracking Resident Involvement: Resident Care Provided Care Provided: Adult Hospital Medicine
--- NOTE | 2021-02-07 00:16 | Billing Data ---
Date of Service February 07, 2021 Coding Level of Care Code 02049 Initial Inpt Care Lvl 2
[2021-02-07] MEDS ORDERED: ONDANSETRON INJ 2 MG/ML 2 ML VIAL IV PRN (01:21)
[2021-02-07] MEDS ORDERED: PHARMACIST DISCHARGE MED REC CONSULT PRN (01:21)
[2021-02-07] MEDS ORDERED: GADOBUTROL 65ML VIAL IV ONE (01:36)
[2021-02-07 06:42] LABS: Basophils # (auto) 0.06 K/uL (0-0.2); Basophils % (auto) 0.5 %; Eosinophils # (auto) 0.41 K/uL (0-0.5); Eosinophils % (auto) 3.6 %; Hematocrit (blood only) 39.7 % (37-47); Hemoglobin 13.8 g/dL (12.0-16.0); Immature Granulocytes # (auto) 0.02 K/uL (0.00-0.02); Immature Granulocytes % (auto) 0.2 %; Lymphocytes # (auto) 3.71 K/uL (1.2-3.4); Lymphocytes % (auto) 32.7 %; Mean Corpuscular Hemoglobin 32.8 pg (25-34); Mean Corpuscular Hgb Conc 34.8 g/dL (32-36); Mean Corpuscular Volume 94.3 fL (80-100); Mean Platelet Volume 8.9 fL (7.4-10.4); Monocytes # (auto) 0.81 K/uL (0.11-0.59); Monocytes % (auto) 7.1 %; Neutrophils # (auto) 6.32 K/uL (1.4-6.5); Neutrophils % (auto) 55.9 %; Platelet Count 284 K/uL (130-400); RDW Standard Deviation 44.7 fL (36.4-46.3); Red Blood Count 4.21 M/uL (4.2-5.4); White Blood Count 11.33 K/uL (4.8-10.8)
--- NOTE | 2021-02-07 06:55 | Magnetic Resonance Report ---
MRI OF THE BRAIN WITHOUT AND WITH IV CONTRAST CLINICAL HISTORY: Double vision. Balance. COMPARISON STUDY: CT scan dated 02/06/2021 TECHNIQUE: MRI of the brain was performed from the vertex to the skull base utilizing various T1 and T2 weighted sequences. Following the IV administration of 4.5 mL of Gadavist contrast, additional enh anced images were obtained. FINDINGS: Sagittal T1, axial diffusion, proton density and T2 weighted axial, coronal FLAIR, and pre and post a xial T1-weighted images were acquired. These were supplemented with post gadolinium coronal T1 weight ed images. No intra or extra-axial mass lesions are visualized. Axial diffusion-weighted images reveal no evidence of acute or subacute infarction. There is no evidence of ventricular dilatation. Proton density T2-weighted and FLAIR images reveal there is a 4 mm focus of increased T2 signal withi n the left thalamus. This could represent a dilated perivascular space or old lacunar infarct. There are few scattered tiny foci of increased T2 signal within the frontal white matter. These are nonspec ific but could be on a small vessel basis. There are no abnormal flow voids. There is no evidence of pathologic enhancement. Inflammatory changes are present within the paranasal sinuses. IMPRESSION: 1. No acute intracranial findings 2. No evidence of acute or subacute infarction 2. No evidence of intracranial mass ACT 112: Negative or not required by law. Electronically signed by: James Santiago M.D. 02/07/2021 6:54 AM
--- NOTE | 2021-02-07 07:19 | CT Scan Report ---
HEAD CT NONCONTRAST CT DOSE: HISTORY: dizzy, vomiting, visual changes TECHNIQUE: Multiaxial CT images of the head were performed without the use of intravenous contrast. A utomated exposure control was utilized for this study. A dose lowering technique was utilized adheri ng to the principles of ALARA. Comparison: None. Findings: The paranasal sinuses and mastoid air cells are clear. The calvarium and skull base are int act. The ventricles and sulci are within normal limits. There is no mass, hematoma, midline shift, or acute infarct. Punctate old lacunar infarct within the left thalamus. Impression: No acute intracranial abnormality. ACT 112: Negative or not required by law. Electronically signed by: Dex Gusman M.D. 02/07/2021 7:18 AM
[2021-02-07 07:32] LABS: BUN Creatinine Ratio 12.1 (10-20); Calcium 7.8 mg/dl (8.5-10.1); Creatinine Clr Calc Pharmacy 78.2 ml/min; Est GFR (African American) 124.9; Est GFR (Non-African American) 107.8
--- NOTE | 2021-02-07 07:32 | CT Scan Report ---
HEAD & NECK CTA HISTORY: dizzy, vomiting TECHNIQUE: Multiaxial CT images of the head were performed following the intravenous administration o f contrast to evaluate the major cerebral vessels. Multiaxial CT images of the neck were also perform ed following the intravenous administration of contrast to evaluate the major cervical vessels. Maxim um intensity projection images were also obtained. A dose lowering technique was utilized adhering to the principles of ALARA. COMPARISON: Head CT 02/06/2021. FINDINGS: There is no mass, hematoma, midline shift, or acute infarct. Visualized intracranial internal carotid arteries, distal vertebral arteries, and basilar artery are widely patent. 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 The major dural venous sinuses are patent. Incidental note is made of a hypoplastic right P1 segment. The aortic arch and proximal great vessels are widely patent. There is no significant stenosis, occ lusion, or dissection identified within the bilateral common carotid, internal carotid, or vertebral arteries. Moderate emphysema. Mild motion artifact results in suboptimal evaluation of the mid architecture intern al carotid arteries. IMPRESSION: 1. No significant stenosis, occlusion, or aneurysm within the [place]. 2. No significant stenosis, occlusion, or dissection identified within the carotid or vertebral arter ies. ACT 112: Negative or not required by law. Electronically signed by: Dex Gusman M.D. 02/07/2021 7:30 AM
--- NOTE | 2021-02-07 07:32 | CT Scan Report ---
HEAD & NECK CTA HISTORY: dizzy, vomiting TECHNIQUE: Multiaxial CT images of the head were performed following the intravenous administration o f contrast to evaluate the major cerebral vessels. Multiaxial CT images of the neck were also perform ed following the intravenous administration of contrast to evaluate the major cervical vessels. Maxim um intensity projection images were also obtained. A dose lowering technique was utilized adhering to the principles of ALARA. COMPARISON: Head CT 02/06/2021. FINDINGS: There is no mass, hematoma, midline shift, or acute infarct. Visualized intracranial internal carotid arteries, distal vertebral arteries, and basilar artery are widely patent. 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 The major dural venous sinuses are patent. Incidental note is made of a hypoplastic right P1 segment. The aortic arch and proximal great vessels are widely patent. There is no significant stenosis, occ lusion, or dissection identified within the bilateral common carotid, internal carotid, or vertebral arteries. Moderate emphysema. Mild motion artifact results in suboptimal evaluation of the mid university intern al carotid arteries. IMPRESSION: 1. No significant stenosis, occlusion, or aneurysm within the [place]. 2. No significant stenosis, occlusion, or dissection identified within the carotid or vertebral arter ies. ACT 112: Negative or not required by law. Electronically signed by: Dex Gusman M.D. 02/07/2021 7:30 AM
--- NOTE | 2021-02-07 07:44 | Hospitalist Progress Note ---
Date of Service February 07, 2021 Assessment & Plan (1) CVA (cerebral vascular accident): Brit Reeves is a 50yo F with no PMHx who presents with dizziness, double vision, and mild R sided weakness who is admitted for stroke evaluation TIA - CTA head/neck naf - CT-H: Naf - MRI: No acute intracranial findings. No evidence of acute or subacute infarction, No evidence of intracranial mass. Possible old thalamic lacunar infarct. Repeat MRI per neuro - Patient with dizziness, double vision, mild right sided weakness. Differential includes hemiplegic migraine, however while family history includes migraine but is otherwise somewhat inconsistent with this and is more strongly clinically consistent with TIA. - Telestroke consult placed, CT Head and CTA Head/Neck without acute findings. - Lipids: Total/LDL/HDL 147/92/36 - Recommend starting low-dose aspirin daily. While patient's 10-year ACC/AHA risk is less than 7.5%, and her TIA is suggestive of more small vessel disease she has a strong family history of GA prior to age 60, carries a lifetime risk of up 40%, and is an active smoker whose risk may be underestimated. Following risk/benefits evaluation a moderate potency statin is reasonable. Continue atorvastatin 40 mg - TTE shows normal LV size and function, EF 60-65%, no regional wall motion abnormalities. Small right to left interatrial shunt with Valsalva, no significant valvular abnormalities. - A1C 5.3%. -Neurology consulted. PT/OT/speech recommended, tobacco cessation recommended, aspirin daily recommended. May defer statin. Appreciate recommendations -PT/OT pending -hypertensive on admit, BP 117/77 on AM check. Continue to follow vitals. Tobacco use Patient reports longstanding history of tobacco abuse, recognizes health benefits of quitting and is contemplative Recommend tobacco cessation with trial of nicotine replacement therapy combination, outpatient evaluation for potential adjunct pharmacotherapy options Patient does not have an established PCP, recommend following up with the [facility] clinic Code Status: FULL CODE FEN: Regular DVT ppx: SCDs Dispo: Telemetry for TIA eval Admission and Anticipated Discharge Date Admission Date: February 06, 2021 Supervising Physician Co-Signing Physician Notes I personally examined the patient and verified all davis points of history and e xam, discussed case, and agree with decision making with Dr Candelario feeling better once i see her - double vision/dizziness improving. motivated to quit smoking lili noted nad heent nc at mmm breathing unlabored no accessory muscles good effort skin no rashes no pallor or icterus CVA vs TIA - secondary risk reduction, MRI again tomorrow. then hopefully home after otherwise as above Ashley Perea is seen at the bedside this morning. Reviewing her history she reports that she endorses a family history of migraine in her sister, but that her sister had migraines since she was a young teenager. She reports that she is never had migraines previously, but has had intermittent headaches in the last month occasionally with some photosensitivity. She reports her current symptoms felt very different from her headaches in the last month, and that she had sudden onset of diplopia and one-sided weakness which concerned her and caused her to present to the emergency department. He feels the symptoms resolved somewhat quickly, although she is still little dizzy and endorses that she still has a little bit of blurry vision. She has had some intermittent nausea with her headaches, no vomiting. She reports that she is a longtime smoker with at least half a pack a day for 30 years. She reports she had not previously been very interested in quitting, but notes that she should given that this could have been a strokelike event. She reports she has a strong family history of GA in both her mother and her mother's relatives who have all had heart attacks prior to age 60, although she does not know at what age the first 1 was. He denies a family history of strokes. Today she reports she feels better, but still a little dizzy with blurry vision. She does not have any chest pain, or headache at time of assessment. Denies shortness of breath. She feels her strength is improved, does not notice any one-sided deficits at time of exam. Review of Systems Review of Systems: Constitutional: Denies fever, chills, endorses some fatigue Eyes: Denies vision change ENT: Denies ear pain, sore throat, sinus pain Cardiovascular: Denies Chest pain, chest pressure, palpitations, extremity swelling Respiratory: Denies shortness of breath, cough, sputum production, difficulty breathing Gastrointestinal: Denies abdominal pain, nausea, vomiting, constipation, diarrhea at time of assessment. Endorses nausea intermittently prior to admiss ion. Musculoskeletal: endorses right arm and leg weakness when she presented with no changes in her left arm and leg.. Feels her strength is improved, but not yet at normal baseline. Integumentary:Denies acute rash, lesions, bruising Neurological: See HPI Physical Exam Physical Exam: General: A&Ox3. NAD. Cooperative. HEENT: Atraumatic, normocephalic. See neuro below extinguishes after 2-3 beats. Pulm: CTAB A&P. -wheezes, -rales, -rhonchi. Symmetrical chest rise. No increase work of breathing. No respiratory distress. Cardiac: RRR, -mrg. Radial pulses intact and symmetrical. Neuro: Extremities warm, dry. 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 Sensation to soft touch intact in extremities. Pupils equal and reactive to light and accommodation. Mild blurry vision at rest, convergent induces diplopia with slight exotropia of the right eye. Facial sensation intact without asymmetry, smile/cheek puff/eyebrow raise intact. Results & Data Results & Data ([facility]) Vital Signs (Past 12 Hours) Vital Signs Temp Pulse Pulse Resp BP BP Pulse Ox 02/07/21 07:19 67 02/07/21 04:17 37.0 C 72 16 117/77 94 02/07/21 01:03 36.9 C 77 18 158/95 H 96 02/07/21 00:00 73 16 152/113 H 02/06/21 23:50 74 17 98 02/06/21 23:45 78 18 148/84 H 97 02/06/21 23:40 88 23 99 02/06/21 23:30 81 15 148/91 H 97 02/06/21 23:20 74 15 98 02/06/21 23:15 79 19 149/94 H 98 02/06/21 23:10 81 17 98 02/06/21 23:00 82 20 167/104 H 98 02/06/21 22:50 73 12 98 02/06/21 22:45 76 21 146/95 H 98 02/06/21 22:40 82 15 95 02/06/21 22:32 74 18 97 02/06/21 22:30 75 19 164/97 H 98 02/06/21 22:29 78 17 176/101 H 97 02/06/21 22:20 75 23 98 02/06/21 22:15 80 22 157/100 H 99 02/06/21 22:11 81 29 H 98 02/06/21 22:09 81 22 178/98 H 02/06/21 21:50 71 21 97 02/06/21 21:41 71 17 93 02/06/21 21:40 70 19 96 02/06/21 21:30 70 20 94 02/06/21 21:20 72 20 94 02/06/21 21:10 71 22 95 02/06/21 21:00 71 23 94 02/06/21 20:50 80 18 95 02/06/21 20:40 69 22 02/06/21 20:36 71 17 93 02/06/21 20:30 70 25 H 124/84 93 02/06/21 19:50 36.7 C 72 20 151/91 H 98 Resident Activity Tracking Resident Involvement: Resident Care Provided Care Provided: Adult Hospital Medicine
[2021-02-07 08:14] LABS: Estimated Average Glucose 105 mg/dl; Hemoglobin A1C 5.3 % (4.5-5.6)
[2021-02-07] MEDS: ASPIRIN 81 MG ECTAB PO SCH (09:30)
[2021-02-07] MEDS: ATORVASTATIN 40 MG TAB PO SCH (09:30)
[2021-02-07] MEDS: POTASSIUM CHLORIDE CRTAB 20 MEQ TABCR PO SCH ×3 (09:30→16:22)
[2021-02-07] MEDS: CLOPIDOGREL BISULFATE 75 MG TAB PO SCH (09:30)
--- NOTE | 2021-02-07 09:32 | Neurology Consultation ---
Date of Consultation February 07, 2021 Assessment & Plan (1) CVA (cerebral vascular accident): (2) Right sided weakness: (3) Diplopia: (4) Dizziness: (5) Facial droop: patient had the sudden onset in the evening of February 06 of a vertiginous dizziness and double vision with off balance feelings, right facial dysesthesias, some slurred speech, and some weakness in the right arm and leg. All of this is consistent with a posterior fossa stroke, but the MRI of the brain did not show any actual acute stroke. Films were reviewed with 2 radiologists. she does have some very mild small vessel ischemic disease and old nature likely from cigarette smoking. Clinically, currently, she does not have any actual weakness but still has double vision and vertiginous feelings. There may be a very mild right 3rd nerve palsy. She had a facial droop on the right last evening but that is not present today. She is no longer dysarthric or with any dysesthesias. Right-sided weakness feels improved to her This morning CT angiography of the head neck were unremarkable laboratory studies were unremarkable except for a lipase of 496. She has no abdominal pain. cigarette smoking is her primary risk factor for stroke and small vessel ischemic disease . Her blood pressure was elevated in the emergency room but has not been elevated since. She has no dyslipidemia or glucose issues. Recommendations: 1.Awaiting echocardiogram results. 2. Physical, occupational, and speech therapy consult 3. discontinue all cigarette smoking 4. I see no need for a statin at this time 5. 81 milligram aspirin tablet daily. 6. if she is still having symptoms tomorrow, I would repeat MRI of the brain without contrast with attention to the brainstem. We have seen multiple cases over the years where an initial MRI of missed a small brainstem stroke, that was subsequently seen on a repeat MRI. Overall, I spent a total of 120 minutes with this case including review of records, review of MRI films (with doctors Jack and Chuck), direct evaluation the patient at bedside, and discussion of the case with the patient at bedside and Dr. Huntley including differential diagnosis and treatment options. History of Present Illness Reason for Consultation: Patient is a 50-year-old, who I was asked to see at the request of Dr. Whittington, for neurologic consultation regarding stroke. Requesting Physician: Dr. Whittington Attending Physician: Mervin Huntlye, DO History of Present Illness patient has a history of 1/2 pack per day cigarette smoking for 34 years. Otherwise there is no medical history of heart disease, hypertension, dyslipidemia, or stroke. She has no history of head trauma or meningitis. She rarely has a headache but over the last couple of months she has had a few migrainous type events consisting of some bifrontal pain with nausea and photophobia. They last up to half day and she does not take any medication. Recently, in the last few days, she has not had any headache. 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 Somewhere after 1800, the patient had the onset of double vision and dizziness. she was seeing 2 of an object in any direction and it was very disconcerting for her to look. She was vertiginous and felt as if she was "drunk" (but she had no alcohol ). She felt as if she was being pulled to the right. She did not fall or pass out. She was nauseous, but did not throw up. Sitting did not really help so she left work and went to her mother's house. While at her mother's house she noted some abnormal sensations on the right side of her face, some fatigue, and some weakness in the right leg greater than right arm. Her speech was slurred as well. Again, she felt as if she was "very drunk". She arrived at the emergency room February 06 at 1950, with a temperature is 36.7, pulse 72, respiratory 20, blood pressure 157/91 an O2 saturation 98 percent. In the emergency room she had some slurred speech, right facial droop, slight weakness of the right arm and leg, and the double vision. Patient denied headache before or during the symptoms. EKG was unremarkable and she had normal sinus rhythm. CBC showed a slightly elevated white count and Chem profile was unremarkable except for a lipase 496. TSH was 0.37. Urine tox screen was unremarkable although she had positive marijuana. she was Covid-[address] scan of the head was unremarkable. CT angiography of the head and neck were unremarkable with no significant vessel stenoses or anomalies. MRI of the brain showed no acute stroke. There were a few nonspecific tiny old small vessel ischemic changes and 1 left thalamic 4 millimeter area that was either an old lacune or a dilated perivascular space. I reviewed these films with Drs. Santiago and Chuck. There are no acute abnormalities. This morning, CBC still shows a slight elevated white count and mildly low potassium and calcium. Triglyceride was 96 and total cholesterol 147. Blood pressure was 134/83. She still complains of some blurry and double vision but she has no abnormal sensation on her right face. She has no facial weakness that she feels either. The right side is still weak but it is not as bad as yesterday she feels. She is still vertiginous particularly when she moves her head. there is no headache or pain. Allergies Allergy/AdvReac Type Severity Reaction Status Date / Time No Known Allergies Allergy Verified 02/06/21 20:41 Home Medications Medication Instructions Recorded Confirmed Type No Known Home Medications 02/06/21 02/06/21 History Patient History Medical History (Updated 02/07/21 @ 09:47 by John Limon MD) No significant past medical history Surgical History No significant past surgical history S/P cataract surgery Family History Mother Heart disease Hypertension Father , aged 34 of a motor vehicle accident No problems noted. Other Coronary heart disease Diabetes Social History Smoking Status: Current every day smoker Tobacco Type: Cigarettes Cigarettes Per Day: 10; Hx Alcohol Use: Yes Alcohol Intake Frequency Comment: 1-2 drinks per month Hx Substance Use: Yes Prescribed Medications: Marijuana Preferred Language: Nepali Beliefs That Will Affect Care: None Current Living Situation: Family 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: employed current occupation: [employer] Feels Safe at Home: Yes Assistive Devices: Denture - Upper and Denture - Lower Review of Systems Constitutional: + fatigue and + weakness; no fever Eyes: + diplopia and + eye pain; no worsening vision Ear, Nose, Mouth, Throat: + hearing loss and + dizziness; no ear pain, no tinnitus, no hoarseness and no dysphagia Respiratory: no cough and no dyspnea Cardiovascular: no chest pain, no palpitations and no lightheadedness Gastrointestinal: no abdominal pain, no nausea and no vomiting Genitourinary: no dysuria, no urinary frequency and no urinary incontinence Musculoskeletal: no back pain, no neck pain, no radicular pain, no joint pain and no myalgia Integumentary: no rash and no lesions Neurologic: + gait abnormality and + localized weakness; no generalized weak ness, no tingling, no numbness, no tremor(s), no abnormal movements, no headache (s), no abnormal speech, no confusion and no memory loss Psychiatric: no depression, no irritability, no anxiety, no difficulty concentrating, no confusion and no hallucinations Endocrine: no fatigue and no flushing Hematologic / Lymphatic: no easy bleeding and no easy bruising Allergy / Immunological: no urticaria and no problem reported Exam (Neuro) Physical Exam: The patient is right-handed. The patient is awake, alert, and attentive. Speech is normal without any obvious aphasia or dysarthria. She can name objects, repeat phrases, and has normal spontaneous speech. Mentation and thought processes are intact, with orientati on to person, place and time, and normal fund of knowledge. Attention and concentration are normal. Mood and affect are normal and appropriate. General appearance and grooming are normal. Short and long-term memory are intact to conversation. The discs are sharp with positive venous pulsations bilaterally. There are no exudates, hemorrhages, or blood vessel changes seen. Pupils are 4 mm bilaterally and reactive to light. Extraocular eye muscles are intact without nystagmus. Visual acuity and visual etienne seem normal grossly to confrontation. Although she had no obvious dysconjugate gaze or nystagmus in following my finger in all visual etienne, when I covered the right eye and had her look at me to the right, and then lifted the right hand she had some dysconjugate gaze with the right eye drifting outward. In addition her right eye would not adduct with convergence, causing increased double vision. Overall, however, there was not much in the way of dysconjugate gaze despite her discomfort at looking at an object with both eyes in any direction due to dizziness and double vision. When 1 eye was covered, or the other, she had no double vision. There are no deficits to sensation in the face in all 3 distributions of the fifth cranial nerve bilaterally. Corneal reflexes are positive bilaterally. Facial strength and symmetry was normal bilaterally. Hearing seems normal to wh isper and finger rub bilaterally. Palate moves well without asymmetry. There is normal sternocleidomastoid and trapezius (shoulder shrug) strength bilaterally. Tongue is midline with good strength bilaterally. Neck has a full range of motion without discomfort. There are no cervical bruits bilaterally. There are no cranial or ocular bruits. Heart is without murmur. There is a regular rhythm and rate. Cervical, thoracic, and lumbar spine are nontender to palpation. Gait Was not specifically tested but stance standing by her bedside was reasonable. She felt dizzy and felt that she had data sit down again because of wooziness and discomfort. With outstretched arms there Was a very mild drift on the right. There are no resting, postural, or action tremors. There is no ataxia with finger to nose testing. There is good facility in the hands. No other abnormal involuntary movements are noted. Motor strength is 5/5 diffusely in the arms bilaterally including deltoids, biceps, triceps, brachioradialis, wrist flexors and extensors, cooker cleaner, and intrinsic hand muscles. Motor strength is 5/5 diffusely in the legs bilaterally including hip flexors, quadriceps, hamstrings, gastrocnemius, tibialis anterior, tibialis posterior, and Peroneii muscles. Toe extensors are normal and there is good bulk in the extensor digitorum brevis muscles bilaterally. Overall, although there was some giveaway weakness proximally in the right arm and leg I did not detect any true focal weakness with individual muscle testing in the right arm or leg both proximally or distally. The limbs have good tone without rigidity or spasticity. There is no atrophy noted in the muscles. Muscle bulk is normal, there is no tenderness to palpation, no myotonia to percussion, and no fasciculations seen. Sensory examination is intact to touch and pin throughout all 4 limbs diffusely. Reflexes are 2/4 in the biceps, triceps, brachioradialis, quadriceps, and Achilles tendons bilaterally. There is no clonus bilaterally. Toes are downgoing with plantar stimulation bilaterally. Peripheral pulses are present and of normal quality distally in all 4 limbs. There is no peripheral edema noted in the limbs. Results & Data ([facility]) Vital Signs (Past 12 Hours) Vital Signs Temp Pulse Pulse Resp BP BP Pulse Ox 02/07/21 08:09 36.7 C 66 20 134/83 95 02/07/21 07:19 67 02/07/21 04:17 37.0 C 72 16 117/77 94 02/07/21 01:03 36.9 C 77 18 158/95 H 96 02/07/21 00:00 73 16 152/113 H 02/06/21 23:50 74 17 98 02/06/21 23:45 78 18 148/84 H 97 02/06/21 23:40 88 23 99 02/06/21 23:30 81 15 148/91 H 97 02/06/21 23:20 74 15 98 02/06/21 23:15 79 19 149/94 H 98 02/06/21 23:10 81 17 98 02/06/21 23:00 82 20 167/104 H 98 02/06/21 22:50 73 12 98 02/06/21 22:45 76 21 146/95 H 98 02/06/21 22:40 82 15 95 02/06/21 22:32 74 18 97 02/06/21 22:30 75 19 164/97 H 98 02/06/21 22:29 78 17 176/101 H 97 02/06/21 22:20 75 23 98 02/06/21 22:15 80 22 157/100 H 99 02/06/21 22:11 81 29 H 98 02/06/21 22:09 81 22 178/98 H 02/06/21 21:50 71 21 97 02/06/21 21:41 71 17 93 02/06/21 21:40 70 19 96 02/06/21 21:30 70 20 94 02/06/21 21:20 72 20 94 PG Care Time/CCT Total # of Minutes Spent Total Time Spent with Patient: Total time spent is greater than 50% in coordination of care (as documented) at patient's floor/unit and/or counseling patient: Coding Level of Care Code 91713 Inpt Consult Level 5 Diagnoses CVA (cerebral vascular accident) I63.9 Right sided weakness R53.1 Diplopia H53.2 Dizziness R42 Facial droop R29.810 Time Spent (min) 120 Comment add modifiers as needed
--- NOTE | 2021-02-07 10:47 | XCELERA ---
[id number]
--- NOTE | 2021-02-07 17:47 | Billing Data ---
Date of Service February 07, 2021 Coding Level of Care Code 26657 Subseq Hosp Care Lvl 3
--- NOTE | 2021-02-08 05:37 | Electrocardiogram Report ---
Test Reason : Blood Pressure : / mmHG Vent. Rate : 076 BPM Atrial Rate : 076 BPM P-R Int : 136 ms QRS Dur : 084 ms QT Int : 396 ms P-R-T Axes : 079 052 061 degrees QTc Int : 445 ms Normal sinus rhythm Possible Left atrial enlargement Borderline ECG No previous ECGs available Confirmed by Chuck Feldman ([id number]) on 02/08/2021 5:37:07 AM Referred By: REFERRED SELF Confirmed By:Chuck Feldman
[2021-02-08 06:18] LABS: Basophils # (auto) 0.07 K/uL (0-0.2); Basophils % (auto) 0.8 %; Eosinophils # (auto) 0.42 K/uL (0-0.5); Eosinophils % (auto) 4.6 %; Hematocrit (blood only) 39.8 % (37-47); Hemoglobin 13.7 g/dL (12.0-16.0); Immature Granulocytes # (auto) 0.01 K/uL (0.00-0.02); Immature Granulocytes % (auto) 0.1 %; Lymphocytes # (auto) 3.32 K/uL (1.2-3.4); Lymphocytes % (auto) 36.5 %; Mean Corpuscular Hemoglobin 32.4 pg (25-34); Mean Corpuscular Hgb Conc 34.4 g/dL (32-36); Mean Corpuscular Volume 94.1 fL (80-100); Mean Platelet Volume 8.8 fL (7.4-10.4); Monocytes # (auto) 0.79 K/uL (0.11-0.59); Monocytes % (auto) 8.7 %; Neutrophils # (auto) 4.48 K/uL (1.4-6.5); Neutrophils % (auto) 49.3 %; Platelet Count 282 K/uL (130-400); RDW Coefficient of Variation 12.8 % (11.5-14.5); RDW Standard Deviation 44.3 fL (36.4-46.3); Red Blood Count 4.23 M/uL (4.2-5.4); White Blood Count 9.09 K/uL (4.8-10.8)
[2021-02-08 06:49] LABS: BUN Creatinine Ratio 12.3 (10-20); Calcium 8.3 mg/dl (8.5-10.1); Creatinine Clr Calc Pharmacy 79.5 ml/min; Est GFR (African American) 125.6; Est GFR (Non-African American) 108.4; Potassium 3.3 mmol/L (3.5-5.1)
--- NOTE | 2021-02-08 06:50 | Hospitalist Progress Note ---
Date of Service February 08, 2021 Assessment & Plan (1) TIA (transient ischemic attack): Admission and Anticipated Discharge Date Admission Date: February 06, 2021 Review of Systems Review of Systems: Constitutional: Denies fever, chills, weight change Eyes: Denies blurry vision, vision changes ENT: Denies sore throat, sinus pain Cardiovascular: Denies chest pain, palpitations Respiratory: Denies shortness of breath Gastrointestinal: Denies abdominal pain, nausea, vomiting, constipation, diarrhea Genitourinary: Denies urinary symptoms including dysuria Musculoskeletal: Denies weakness, muscle aches/pain, joint aches/pain Neurological: Denies headache, numbness, tingling, focal weakness Physical Exam Physical Exam: General: Grossly A&O. NAD. Cooperative. HEENT: Atraumatic, normocephalic. EOMI Pulm: CTAB. -wheezes, -rales, -rhonchi. No respiratory distress. Cardiac: RRR, -mrg. Radial pulses intact and symmetrical. Abdominal: Nontender, nondistended, soft. Results & Data Results & Data ([facility]) Vital Signs (Past 12 Hours) Vital Signs Temp Pulse Pulse Resp BP Pulse Ox 02/08/21 04:08 36.9 C 60 16 126/74 97 02/07/21 23:43 36.6 C 71 16 132/82 96 02/07/21 23:00 65 02/07/21 19:41 36.4 C L 65 16 127/82 97 Resident Activity Tracking Resident Involvement: Resident Care Provided Care Provided: Adult [facility]
[2021-02-08] MEDS: CLOPIDOGREL BISULFATE 75 MG TAB PO SCH (08:14)
[2021-02-08] MEDS: ATORVASTATIN 40 MG TAB PO SCH (08:14)
[2021-02-08] MEDS: ASPIRIN 81 MG ECTAB PO SCH (08:14)
--- NOTE | 2021-02-08 09:41 | Magnetic Resonance Report ---
MRI OF THE BRAIN WITHOUT CONTRAST CLINICAL HISTORY: ? Posterior circulation stroke, diplopia/dizziness COMPARISON STUDY: 02/07/2021 FINDINGS: Sagittal T1, axial diffusion, proton density and T2 weighted axial, coronal FLAIR, and axial T1-weigh joel images were acquired. No intra or extra-axial mass lesions are visualized There is a small 4 mm focus of restricted water diffusion within the left posterior medial midbrain, suspicious for a small acute/subacute infarct. There is associated increased T2 and FLAIR signal irene esponding to this area. There is no evidence of ventricular dilatation. Proton density T2-weighted and FLAIR images reveal a focus of increased T2 and FLAIR signal within th e left posterior midbrain corresponding to the focus of restricted water diffusion. There are a few s cattered punctate foci of increased T2 signal within the frontal white matter. There is a stable 4 mm focus of increased T2 signal within the left thalamus. This could represent a dilated perivascular a cervical lacunar infarct There are no abnormal flow voids. Inflammatory changes are present within the paranasal sinuses. IMPRESSION: 1. 4 mm focus of restricted water diffusion within the left posterior medial midbrain with correspond ing increased T2 and FLAIR signal. The findings are consistent with acute/subacute infarct ACT 112: Negative or not required by law. Electronically signed by: James Santiago M.D. 02/08/2021 9:40 AM
--- NOTE | 2021-02-08 10:44 | Neurology Progress Note ---
Date of Service February 08, 2021 Assessment & Plan (1) CVA (cerebral vascular accident): (2) Right sided weakness: (3) Diplopia: (4) Dizziness: (5) Facial droop: Patient had the sudden onset in the evening of February 06 of a vertiginous dizziness and double vision with off balance feelings, right facial dysesthesias, some slurred speech, and some weakness in the right arm and leg. All of this is consistent with a posterior fossa stroke. MRI of the brain February 07, did not show any actual acute stroke, however, MRI of the brain today showed a tiny left midbrain stroke. This explains her symptoms. In addition, she does have some very mild small vessel ischemic disease and old nature, likely from cigarette smoking. Fortunately, clinically, she is asymptomatic and has resolved her symptoms. CT angiography of the head neck were unremarkable laboratory studies were unrema rkable. Cigarette smoking is her primary risk factor for stroke and the small vessel ischemic disease . Her blood pressure was elevated in the emergency room but has not been elevated since. She has no dyslipidemia or glucose issues. Recommendations: 1. continue 81 milligram aspirin tablet daily 2. discontinue cigarette smoking 3. I have no further neurologic recommendations to make at this time but would be happy to see her as an outpatient in 3-4 weeks for follow-up. Overall, I spent a total of 35 minutes with this case including review of records, review of MRI films, direct evaluation the patient at bedside, and discussion of the case with the patient at bedside and Dr. Huntley including differential diagnosis and treatment options. Admission and Anticipated Discharge Date Admission Date: February 06, 2021 Subjective the patient feels very well and has no more dizziness or double vision. She has no blurry vision. She denies any weakness or issues with her right arm or leg. She feels back to baseline and "wants to go home". CBC today was unremarkable. Chem profile was unremarkable as well. Echocardiogram was largely unremarkable. MRI of the brain showed a very small left posterior medial mid brain stroke not appreciated on the MRI yesterday. Results & Data ([facility]) Vital Signs (Past 12 Hours) Vital Signs Temp Pulse Pulse Resp BP Pulse Ox 02/08/21 07:52 61 02/08/21 07:10 36.7 C 66 18 131/70 97 02/08/21 04:08 36.9 C 60 16 126/74 97 02/07/21 23:43 36.6 C 71 16 132/82 96 02/07/21 23:00 65 Exam (Neuro) Physical Exam: She is awake alert. Speech is without aphasia or dysarthria. Mood is normal and affect is appropriate. She is pleasant and cooperative. Extraocular eye muscles are intact without nystagmus. Her visual acuity seems unremarkable. There is no facial droop and tongue is midline. With outstretched arms there is no drift. There is no tremors or abnormal involuntary movements. Motor strength is 5/5 diffusely in all major muscle groups in arms and legs both proximally and distally. PG Care Time/CCT Total # of Minutes Spent Total Time Spent with Patient: Total time spent is greater than 50% in coordination of care (as documented) at patient's floor/unit and/or counseling patient: Coding Level of Care Code 05664 Subseq Hosp Care Lvl 3 Diagnoses CVA (cerebral vascular accident) I63.9 Right sided weakness R53.1 Diplopia H53.2 Dizziness R42 Facial droop R29.810 Time Spent (min) 35
[2021-02-08] MEDS ORDERED: STROKE PATIENT DISCHARGE STA (12:50)
--- NOTE | 2021-02-08 12:59 | Discharge Summary ---
Date of Service February 08, 2021 Admission HPI Per Admitting Provider 50. yo F no significant PMHx presented to ER for complaints of dizziness, right sided facial droop, and diplopia. 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 A few hours after that she was with her friend and her friend mentioned that she thought she might have a facial droop on the right side, so she came to the ER. Was seen by ER provider around 9:50pm after being alerted by nursing to some status changes while she was waiting due to high volume and acuity in the emergency department. Stroke alert called. CT Head and CTA Head and Neck without acute findings. CBC and BMP within normal limits. Ethanol level normal, marijuana positive. Telestroke consult recommended MRI and inpatient admission for monitoring with possible concern for brainstem stroke. Patient was not a candidate for TPA due to being out of time interval. Hospitalist service consulted for admission. On my interview patient reports chest pain, shortness of breath, abdominal pain, nausea, headache. Does still endorse double vision, but reports that her right sided weakness feels somewhat better. Admission Exam Per Admitting Provider Constitutional: WD/WN, vitals as above Eyes: PERRL, conjunctivae normal, anicteric sclerae ENMT: external ear and nose normal, oropharynx normal Neck: normal visual inspection Respiratory: normal respiratory effort, lungs clear to auscultation Cardiovascular: RRR, no murmur, no edema Gastrointestinal (Abdomen): normal bowel sounds, soft, nontender, no hepatosplenomegaly Musculoskeletal: no cyanosis or clubbing. RUE and RLE 4/5 strength as compared to left side. Skin: no rashes, warm and dry Neurologic: AAOx3, normal speech. Right sided mild facial droop noted, which resolves with smile. PERRLA, EOMI, no nystagmus. Reports double vision. Noted to have dysconjugate gaze. Bilateral UE, LE, and face without sensory deficits. No pronator drift. No tremor. Psychiatric: A+Ox3, euthymic affect Principal Diagnosis CVA Discharge Exam General: Grossly A&O. NAD. Cooperative. HEENT: Atraumatic, normocephalic. EOMI. PERRL. No nystagmus. Pulm: CTAB. -wheezes, -rales, -rhonchi. Symmetrical chest rise. No respiratory distress. Cardiac: RRR, -mrg. Slightly puffy appearance of BLE, but no pitting edema. Abdominal: Nontender, nondistended, soft. Neuro: CN II-XII intact. Patellar reflexes 2+ bilaterally. No facial droop. 5+/5 strength of all 4 extremities. Discharge Data Allergies Allergy/AdvReac Type Severity Reaction Status Date / Time No Known Allergies Allergy Verified 02/06/21 20:41 Consultations 02/06/21 22:48 ED Decision to Admit Stat 02/06/21 23:12 Consult Neurology Routine 02/07/21 01:21 Consult Case Management - Discharge Planning Routine Ordered Studies 02/06/21 21:41 CT head/brain wo con Urgent 02/06/21 21:43 CT angio head w con Urgent CT angio neck with con Urgent 02/07/21 00:06 MR brain wo/w con Urgent 02/08/21 08:09 MR brain wo con Routine Hospital Course (1) CVA (cerebral vascular accident): Brit Reeves is a 50yo F with no PMHx who presented with dizziness, double vision, and mild R sided weakness who was admitted for stroke eval. INitial MRI did not show infarct, but repeat MRI showed small left posterior midbrain infarct. TIA - CTA head/neck, CT head: no acute findings - MRI: No acute intracranial findings. No evidence of acute or subacute infarction, No evidence of intracranial mass. Possible old thalamic lacunar infarct. - Repeat MRI: 4 mm focus of restricted water diffusion within the left posterior medial midbrain with corresponding increased T2 and FLAIR signal. The findings are consistent with acute/subacute infarct - Symptoms completely resolved by hospital day 3. - Lipids: Total/LDL/HDL 147/92/36 - A1C 5.3%. - Neurology consulted. - daily baby ASA and statin prescribed given that repeat MRI showed infarct Tobacco use Patient reports longstanding history of tobacco abuse, recognizes health benefits of quitting and is contemplative Recommend tobacco cessation with trial of nicotine replacement therapy combination, outpatient evaluation for potential adjunct pharmacotherapy options F/u w/ PCP Code Status: FULL CODE Total Time Total Time Spent Total Time Spent (In Minutes): <30 Discharge Plan Discharge Items Patient Disposition: Home - Self-Care Reason For Visit: CVA RULE OUT Discharge Diagnosis: CVA Activity: Per Instructions section Non-emergency contact: Primary Care Provider Call non-emergency contact if: you have any medication questions, your pain is not controlled and you have a fever Follow-up/Referrals: Robert Reese MD [Resident] - 02/14/21 1:00 pm (Please follow up with Dr. Reese on Friday02/14/21 at 1:00 pm. Please arrive to the office at 12:45 pm for your appointment. If you are unable to keep this appointment, please call the office to reschedule at [phone]. ) PCP,NO [Primary Care Provider] - Diet: Regular Addtl Attending Provider Instructions: You were admitted to [facility] for symptoms suggestive of stroke. MRI of your brain on the second day showed a small stroke in the area of the brain called the brainstem. Your symptoms resolved by the day of discharge. The best lifestyle modification to reduce risk of repeat stroke and/or heart disease is to stop smoking. At your outpatient visit, nicotine replacement therapy can be discussed. new medications: 81 mg aspirin daily. 40 mg atorvastatin daily. Please follow up with your primary care doctor in the office in 1 week. An appointment will be made for you for the [address] [facility] in [facility]/ [place]. Pending Studies at Discharge: No Stand-Alone Forms: Medications to Prevent Stroke, My [facility], Smoking Cessation Medications and DC Order Prescriptions: New atorvastatin 40 mg Tablet 40 mg PO QAM 30 Days Qty: 30 RF: 2 aspirin 81 mg Tablet,Delayed Release (Dr/Ec) 81 mg PO DAILY 30 Days Qty: 30 RF: 2 Discharge Orders: Discharge Order (Routine); Ordered 02/08/21 Ordered By: Robert Reese Admission Data Admit Date/Time: 02/06/21 23:12 Attending Provider: Mervin Huntley Admit Provider: Yaima Sutherland Primary Care Provider: PCP,NO Other Providers: John Limon ; Yaima Sutherland Other Interventions: Discharge Summary Assessment (RN) Last Done: 02/08/21 13:30 Supervising Physician Co-Signing Physician Notes I personally examined the patient and verified all davis points of history and exam, discussed case, and agree with decision making with Dr Reese Feeling better, no new complaints. We discussed diagnosis and treatment, as well as secondary risk reduction. She is motivated to quit smoking viatls noted nad heent nc at mmm breathing unlabored no accessory muscles good effort skin no rashes no pallor or icterus CVA- secondary risk reduction (most notably smoke cessation, aspirin, statin) discussed risks and benefits of aspirin and statin as well as outpatient follow- up. In regards to smoke cessation, discussed quitting now, discussed common causes of relapse, and discussed critical importance of remaining a lifelong non-smoker moving forward otherwise as above Resident Activity Tracking Resident Involvement: Resident Care Provided Care Provided: Adult Hospital Medicine
--- NOTE | 2021-02-08 13:08 | Pharmacy Report ---
Pharmacist Stroke Counseling - Date of Service February 08, 2021 - Scope: Pharmacy has been consulted to provide medication discharge counseling for this patient admitted with ischemic stroke as per the Pharmacist Discharge Counseling for Stroke Patients Protocol. - Medications on Discharge: New Rx's Medication Instructions Recorded aspirin 81 mg PO DAILY 30 Days #30 tab 02/08/21 atorvastatin 40 mg PO QAM 30 Days #30 tab 02/08/21 - Action: The above medications, specifically ones for stroke treatment/prophylaxis, have been reviewed in detail with the patient and/or patient access service representative(s) prior to discharge. This includes indication, common adverse reactions, drug interactions, and medication administration. Medication counseling has been employed using the teach-back method to ensure understanding. - Outcome: The patient and/or patient access service representative(s) have demonstrated understanding of the medications. Additional comments: Spoke over the phone with Brit chaves. Reviewed new medications to prevent stroke including Aspirin and Atorvastatin. Discussed why they are being used and common side effects in great detail. Reviewed how to use the medications, what to do if doses are missed, common drug interactions, common side effects, what to watch out for while using the medications, and how to store the medications. Pt verbalized understanding and restated the davis points of each medication. Thank you for allowing pharmacy to be involved in the care of this patient. Please call [phone] with any additional questions
--- NOTE | 2021-02-08 18:24 | Billing Data ---
Date of Service February 08, 2021 Coding Level of Care Code D/C Day Management <30 mins
[2021-02-09 08:06] LABS: Marijuana Quant, GCMS Urine 810 ng/mL (<5)
== END 2021-02-08 14:07 | disposition home or self-care (01) | DRG 65 ==
LOC: ED 19:47 → SUATTDRO 23:12 → 2S 23:12

== ENCOUNTER 2021-03-16 03:21 | Observation (INO) ==
[2021-03-16 04:01] LABS: Basophils # (auto) 0.09 K/uL (0-0.2); Eosinophils # (auto) 0.34 K/uL (0-0.5); Eosinophils % (auto) 3.6 %; Hematocrit (blood only) 39.5 % (37-47); Hemoglobin 14.2 g/dL (12.0-16.0); Immature Granulocytes # (auto) 0.01 K/uL (0.00-0.02); Immature Granulocytes % (auto) 0.1 %; Lymphocytes # (auto) 3.18 K/uL (1.2-3.4); Lymphocytes % (auto) 33.7 %; Mean Corpuscular Hemoglobin 33.5 pg (25-34); Mean Corpuscular Hgb Conc 35.9 g/dL (32-36); Mean Corpuscular Volume 93.2 fL (80-100); Mean Platelet Volume 8.9 fL (7.4-10.4); Monocytes # (auto) 0.85 K/uL (0.11-0.59); Neutrophils # (auto) 4.98 K/uL (1.4-6.5); Neutrophils % (auto) 52.6 %; Platelet Count 265 K/uL (130-400); RDW Coefficient of Variation 12.8 % (11.5-14.5); RDW Standard Deviation 43.5 fL (36.4-46.3); Red Blood Count 4.24 M/uL (4.2-5.4); White Blood Count 9.45 K/uL (4.8-10.8)
[2021-03-16] MEDS ORDERED: OPTIRAY 350 500ml IV ONE (04:05)
[2021-03-16 04:13] LABS: Partial Thromboplastin Time 25.6 Seconds (21.0-31.0); Prothrombin Time 10.3 Seconds (9.0-12.0)
[2021-03-16 04:18] LABS: Alanine Aminotransferase 11 U/L (12-78); Albumin Level 3.4 gm/dl (3.4-5.0); Aspartate Aminotransferase 5 U/L (15-37); BUN Creatinine Ratio 15.9 (10-20); Blood Urea Nitrogen 10 mg/dl (7-18); Calcium 8.2 mg/dl (8.5-10.1); Carbon Dioxide 28 mmol/L (21-32); Chloride 109 mmol/L (98-107); Creatinine Clr Calc Pharmacy 72.5 ml/min; Est GFR (African American) 121.4; Est GFR (Non-African American) 104.8; Glucose 103 mg/dl (70-99); Magnesium 2.2 mg/dl (1.8-2.4); Potassium 3.2 mmol/L (3.5-5.1); Sodium 139 mmol/L (136-145)
[2021-03-16 04:23] LABS: Alkaline Phosphatase 50 U/L (45-117); Bilirubin,Total 0.3 mg/dl (0.2-1); Globulin 3.4 gm/dl (2.5-4.0); Total Protein 6.8 gm/dl (6.4-8.2); Troponin I < 0.015 ng/ml (0-0.045)
[2021-03-16] MEDS ORDERED: TPA for Stroke IV STA (04:33)
[2021-03-16] MEDS ORDERED: ALTEPLASE BOLUS IV ONE (04:43)
[2021-03-16] MEDS ORDERED: RECOMBINANT IV ONE (04:44)
[2021-03-16] MEDS ORDERED: PRIMARY PLUMSET, PE LINED TUBING, 113 IN, NON-DEHP (2260-0500) IV ONE (04:44)
[2021-03-16] MEDS ORDERED: ALTEPLASE IV ONE (04:44)
[2021-03-16] MEDS ORDERED: No Aspirin within 24 hrs of TPA for Stroke PO SCH (04:45)
--- NOTE | 2021-03-16 05:04 | Emergency Department Note ---
Impression & Plan CVA (cerebral vascular accident) ED Provider Note NAME: ABHINAV CHAUHAN AGE: 51 SEX: F ARRIVES VIA: Walk-In INFORMANT: Patient, patient's ED PROVIDER(S): Sisi Wang DO CHIEF COMPLAINT: Double vision PLAN: Disposition: Admitted to the ICU; Dr. Sutherland Condition: Stable-status post TPA administration MEDICAL DECISION MAKING: This is a 51-year-old female patient who presents to the emergency department with nausea, diplopia, and an unstable gait. The patient had a similar present ation in the middle of January and was diagnosed with a small left posterior midbrain infarct. Upon discharge from the hospital at that time, the patient was supposed to stop smoking, take aspirin and simvastatin. She did not follow through with those instructions. She presents tonight with a very similar presentation that she did at the time of her stroke except the symptoms are much worse. CT head and CT angiogram of head and neck are negative this morning. We did telestroke with Kristin and Dr. Noel Yost suggested the patient could benefit from TPA. This was administered. The patient has had some improvement in her visual symptoms since the administration she remains hemodynamically stable. Triage Nursing notes reviewed and agree with them. Prior medical records reviewed Vital Signs: reviewed and remarkable for hypertension Differential diagnosis: CVA, TIA, viral illness, vertigo ER treatment provided: IV normal saline IV tPA bolus IV tPA drip Diagnostics interpreted by me: ECG: Normal sinus rhythm at a rate of [address] segment elevation or signs of ischemia. There is no ectopy. There is now near anteroseptal infarct present compared to EKG performed in mid January. Cardiac Monitoring: Normal sinus rhythm at 79 Laboratory studies: See below Imaging studies: As per stat rad CT head: Comparison CTA head 02/06/2021 No evidence of vascular occlusion, significant stenosis, or aneurysm. Consider further evaluation with MRI as clinically warranted. CT neck: Comparison CTA neck 02/06/2021 No evidence of vascular occlusion, dissection or hemodynamically significant stenosis. Emphysema. CT head: Comparison MRI head 02/07/[address] head 02/06/2021 No acute intracranial finding or significant interval change. Mild ethmoid and sphenoid sinus mucosal thickening. HPI: 51/F arrives for evaluation of double vision. The patient states that at approximately 1:30 AM, she developed significant nausea and a sense that she was off balance with her walking. She then noted she had significant double vision while looking at her dogs. She took 2 full-strength aspirin at that time. She alerted her . And they drove here to the hospital. Upon arrival here in the emergency department, the patient went to the bathroom and vomited. She denies any chest pain or shortness of breath. ROS: See above HPI for pertinent positives & negatives. A total of 10 systems reviewed and were otherwise negative. 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 HOME MEDICATIONS:The patient was supposed to be taking simvastatin and aspirin but was not. ALLERGIES:None VITALS:See Below PHYSICAL EXAMINATION: HEENT: Head - normocephalic and atraumatic. Pupils are equal, round, and reactive to light. Extraocular eye muscles are intact and sclera are anicteric. Ears - bilaterally patent canals with noninjected tympanic membranes and no evidence of hemotympanum. Nose - moist nasal mucosa without discharge. Mouth - moist buccal mucosa. Oropharynx is nonerythematous and there is no tonsillar exudate or edema noted. Neck: Supple; no JVD, nuchal rigidity, cervical lymphadenopathy, or auscultated bruits. Heart: Regular rate and rhythm. There is a normal S1 and S2 with no murmurs, clicks, or gallops appreciated. Lungs: Clear to auscultation bilaterally with no wheezes, rales, or rhonchi. Abdomen: Soft, completely nontender, nondistended, with good bowel sounds. There are no palpable pulsatile masses or hepatosplenomegaly. There is no guarding, rigidity, or rebound noted. Extremities: No evidence of cyanosis, clubbing, or edema. There are easily palpable peripheral pulses. Neuro:The patient is awake and alert, oriented to day, time, and place. Muscle strength is 5/5 in all 4 extremities. The patient has equal nurse assistant strength and equal pedal push and pull. There are no cerebellar signs. The patient does describe double vision. She does describe nausea with extraocular eye muscle testing. ED COURSE: Times/Reassessments: 0330 the patient was evaluated in room C7. A complete history and physical was performed and a stroke alert was called. An order was placed for continuous cardiac monitoring. The patient was in a normal sinus rhythm at a rate of 78. A twelve-lead EKG was obtained. The patient went for a stat CT of the brain and CTA of the head and neck. 0350: I reviewed the results with the patient and her . 0400: I discussed the case with Dr. Leger from [facility]. He will evaluate the patient. I was called to the room to discuss TPA with the patient and the neurologist. The patient and her are in agreement that she should go through with having TPA administration for the symptoms. I discussed the case with the pharmacist and the medication will be mixed. The patient was given TPA. I discussed the case with the proctor hospitalist and they will evaluate for further management and discussed the case with critical care medicine. I have personally spent greater than 65 minutes of critical care time in the direct management of this patient. This includes bedside care, interpretation of diagnostic studies, and testing, discussion with consultants, patient, and family members, and other required patient management activities. This 65 minutes is in excess of all separately billable procedures. Sisi Wang DO Past Med/Surg History Medical History CVA (cerebral vascular accident) Stroke determined by clinical assessment Surgical History S/P cataract surgery Family History Mother Heart disease Hypertension Father , aged 34 of a motor vehicle accident No problems noted. 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 Feels Safe at Home: Yes Assistive Devices: None Allergies Allergies Allergy/AdvReac Type Severity Reaction Status Date / Time No Known Allergies Allergy Verified 02/06/21 20:41 Home Meds Previous Rx's Medication Instructions Recorded aspirin 81 mg PO DAILY 30 Days #30 tab 02/08/21 atorvastatin 40 mg PO QAM 30 Days #30 tab 02/08/21 Results & Data (ED) Vital Signs Vital Signs - 24 hr 03/16/21 03:24 03/16/21 03:45 03/16/21 04:02 Temperature 36.7 C Temperature Source Temporal Artery Scan Pulse Rate 92 H 82 Pulse Rate [Apical] Pulse Rate from SpO2 Sensor 78 Pulse Rhythm [Apical] Respiratory Rate 18 23 Respiratory Effort / Characteristics Non-Labored Spontaneous Respiratory Depth Normal Blood Pressure 155/85 H 146/90 H Blood Pressure [Left Arm] Blood Pressure Mean 108 108 Blood Pressure Mean [Left Arm] Blood Pressure Position Sitting Pulse Oximetry 94 97 Oxygen Delivery Method Room Air Sepsis Recent Fever Within 48 Hours No Sepsis New/Unexplained Change in Mental Status No Sepsis Action Taken by Nursing No Action Required 03/16/21 04:15 03/16/21 04:30 03/16/21 04:36 Temperature Temperature Source Pulse Rate 72 72 73 Pulse Rate [Apical] Pulse Rate from SpO2 Sensor 73 73 Pulse Rhythm [Apical] Respiratory Rate 18 16 23 Respiratory Effort / Characteristics Respiratory Depth Blood Pressure 143/91 H 160/99 H Blood Pressure [Left Arm] Blood Pressure Mean 108 119 Blood Pressure Mean [Left Arm] Blood Pressure Position Pulse Oximetry 95 95 Oxygen Delivery Method Sepsis Recent Fever Within 48 Hours Sepsis New/Unexplained Change in Mental Status Sepsis Action Taken by Nursing 03/16/21 04:42 03/16/21 04:45 03/16/21 04:50 Temperature Temperature Source Pulse Rate 75 75 Pulse Rate [Apical] 74 Pulse Rate from SpO2 Sensor 76 75 Pulse Rhythm [Apical] Regular Respiratory Rate 17 22 14 Respiratory Effort / Characteristics Non-Labored Spontaneous Respiratory Depth Normal Blood Pressure 158/101 H Blood Pressure [Left Arm] 152/100 H Blood Pressure Mean 120 Blood Pressure Mean [Left Arm] 117 Blood Pressure Position Pulse Oximetry 96 95 95 Oxygen Delivery Method Room Air Sepsis Recent Fever Within 48 Hours Sepsis New/Unexplained Change in Mental Status Sepsis Action Taken by Nursing 03/16/21 05:02 03/16/21 05:05 03/16/21 05:07 Temperature 36.9 C 36.6 C Temperature Source Oral Oral Pulse Rate Pulse Rate [Apical] 74 71 Pulse Rate from SpO2 Sensor Pulse Rhythm [Apical] Respiratory Rate 19 14 Respiratory Effort / Characteristics Non-Labored Spontaneous Respiratory Depth Normal Blood Pressure Blood Pressure [Left Arm] 166/102 H 166/102 H Blood Pressure Mean Blood Pressure Mean [Left Arm] 123 123 Blood Pressure Position Pulse Oximetry 95 94 Oxygen Delivery Method Room Air Room Air Sepsis Recent Fever Within 48 Hours Sepsis New/Unexplained Change in Mental Status Sepsis Action Taken by Nursing 03/16/21 05:20 Temperature Temperature Source Pulse Rate Pulse Rate [Apical] 74 Pulse Rate from SpO2 Sensor Pulse Rhythm [Apical] Respiratory Rate 14 Respiratory Effort / Characteristics Non-Labored Spontaneous Respiratory Depth Normal Blood Pressure Blood Pressure [Left Arm] 161/93 H Blood Pressure Mean Blood Pressure Mean [Left Arm] 115 Blood Pressure Position Pulse Oximetry 96 Oxygen Delivery Method Sepsis Recent Fever Within 48 Hours Sepsis New/Unexplained Change in Mental Status Sepsis Action Taken by Nursing Laboratory Data Result diagrams: 03/16/21 03:45 03/16/21 03:45 Lab Results 03/16/21 03/16/21 03/16/21 Range/Units 03:45 03:45 03:45 WBC 9.45 (4.8-10.8) K/uL RBC 4.24 (4.2-5.4) M/uL Hgb 14.2 (12.0-16.0) g/dL Hct 39.5 (37-47) % MCV 93.2 (80-100) fL MCH 33.5 (25-34) pg MCHC 35.9 (32-36) g/dL RDW Std Deviation 43.5 (36.4-46.3) fL RDW Coeff of Kera 12.8 (11.5-14.5) % Plt Count 265 (130-400) K/uL MPV 8.9 (7.4-10.4) fL Immature Gran % (Auto) 0.1 % Neut % (Auto) 52.6 % Lymph % (Auto) 33.7 % Carver % (Auto) 9.0 % Eos % (Auto) 3.6 % Baso % (Auto) 1.0 % Neut # (Auto) 4.98 (1.4-6.5) K/uL Lymph # (Auto) 3.18 (1.2-3.4) K/uL Carver # (Auto) 0.85 H (0.11-0.59) K/uL Eos # (Auto) 0.34 (0-0.5) K/uL Baso # (Auto) 0.09 (0-0.2) K/uL Immature Gran # (Auto) 0.01 (0.00-0.02) K/uL PT 10.3 (9.0-12.0) Seconds INR 1.0 (0.9-1.1) APTT 25.6 (21.0-31.0) Seconds PTT Ratio 1.0 Sodium (136-145) mmol/L Potassium (3.5-5.1) mmol/L Chloride (98-107) mmol/L Carbon Dioxide (21-32) mmol/L Anion Gap (3-11) BUN (7-18) mg/dl Creatinine (0.6-1.2) mg/dl Est Cr Clr Drug Dosing ml/min Est GFR ( Amer) Est GFR (Non-Af Amer) BUN/Creatinine Ratio (10-20) Glucose (70-99) mg/dl Calcium (8.5-10.1) mg/dl Magnesium (1.8-2.4) mg/dl Total Bilirubin (0.2-1) mg/dl AST (15-37) U/L ALT (12-78) U/L Alkaline Phosphatase (45-117) U/L Troponin I (0-0.045) ng/ml Total Protein (6.4-8.2) gm/dl Albumin (3.4-5.0) gm/dl Globulin (2.5-4.0) gm/dl Albumin/Globulin Ratio (0.9-2) COVID-19 Eval Order SARS-CoV-2 (PCR) (Negative) Influenza Type A (PCR) (Neg) Influenza Type B (PCR) (Neg) RSV (RT-PCR) (Neg) Blood Type A Positive Antibody Screen NEGATIVE 03/16/21 03/16/21 03/16/21 Range/Units 03:45 04:55 04:55 WBC (4.8-10.8) K/uL RBC (4.2-5.4) M/uL Hgb (12.0-16.0) g/dL Hct (37-47) % MCV (80-100) fL MCH (25-34) pg MCHC (32-36) g/dL RDW Std Deviation (36.4-46.3) fL RDW Coeff of Kera (11.5-14.5) % Plt Count (130-400) K/uL MPV (7.4-10.4) fL Immature Gran % (Auto) % Neut % (Auto) % Lymph % (Auto) % Carver % (Auto) % Eos % (Auto) % Baso % (Auto) % Neut # (Auto) (1.4-6.5) K/uL Lymph # (Auto) (1.2-3.4) K/uL Carver # (Auto) (0.11-0.59) K/uL Eos # (Auto) (0-0.5) K/uL Baso # (Auto) (0-0.2) K/uL Immature Gran # (Auto) (0.00-0.02) K/uL PT (9.0-12.0) Seconds INR (0.9-1.1) APTT (21.0-31.0) Seconds PTT Ratio Sodium 139 (136-145) mmol/L Potassium 3.2 L (3.5-5.1) mmol/L Chloride 109 H (98-107) mmol/L Carbon Dioxide 28 (21-32) mmol/L Anion Gap 2.0 L (3-11) BUN 10 (7-18) mg/dl Creatinine 0.64 (0.6-1.2) mg/dl Est Cr Clr Drug Dosing 72.5 ml/min Est GFR ( Amer) 121.4 Est GFR (Non-Af Amer) 104.8 BUN/Creatinine Ratio 15.9 (10-20) Glucose 103 H (70-99) mg/dl Calcium 8.2 L (8.5-10.1) mg/dl Magnesium 2.2 (1.8-2.4) mg/dl Total Bilirubin 0.3 (0.2-1) mg/dl AST 5 L (15-37) U/L ALT 11 L (12-78) U/L Alkaline Phosphatase 50 (45-117) U/L Troponin I < 0.015 (0-0.045) ng/ml Total Protein 6.8 (6.4-8.2) gm/dl Albumin 3.4 (3.4-5.0) gm/dl Globulin 3.4 (2.5-4.0) gm/dl Albumin/Globulin Ratio 1.0 (0.9-2) COVID-19 Eval Order [facility]FluRsv at [facility] SARS-CoV-2 (PCR) NEGATIVE (Negative) Influenza Type A (PCR) Negative (Neg) Influenza Type B (PCR) Negative (Neg) RSV (RT-PCR) Negative (Neg) Blood Type Antibody Screen Administered Medications Parenteral Electrolytes (Normosol-R) 1,000 mls @ 100 mls/hr IV .Q10H JULITO Stop: 03/17/21 02:35 Last Admin: 03/16/21 06:43 Dose: 100 mls/hr Documented by: [id number] Discontinued Medications Alteplase, Recombinant (Tpa For Stroke) 1 ea IV NOW STA; Protocol Stop: 03/16/21 04:34 Last Admin: 03/16/21 05:42 Dose: Not Given Documented by: [id number] Alteplase, Recombinant 4 mg/ (Syringe) 4 mls @ 4 mls/min IV ONCE ONE Stop: 03/16/21 04:44 Last Admin: 03/16/21 04:42 Dose: 4 mls/min Documented by: [id number] Cosigned by: [id number] Alteplase, Recombinant 36 mg/ (EMPTY BAG) 36 mls @ 36 mls/hr IV ONCE ONE Stop: 03/16/21 04:45 Last Infusion: 03/16/21 05:43 Dose: 0 mls/hr Documented by: [id number] Cosigned by: [id number] Admin: 03/16/21 04:42 Dose: 36 mls/hr Documented by: [id number] Cosigned by: [id number] Ioversol (Optiray 350 500ml) 125 ml IV ONCE ONE Stop: 03/16/21 04:06 Last Admin: 03/16/21 04:05 Dose: 1 ml Documented by: [id number] Imaging Data Radiologist's Impression: Head CT 03/16/21 03:[address] DOSE: HISTORY: Left-sided facial droop. Stroke Like Symptoms TECHNIQUE: Multiaxial CT images of the head were performed without the use of intravenous contrast. Automated exposure control was utilized for this study. A dose lowering technique was utilized adhering to the principles of ALARA. Comparison: Head CT 02/06/2021. Findings: Mild mucosal thickening within the ethmoid air cells. The mastoid air cells are clear. The calvarium and skull base are intact. The ventricles and sul ci are within normal limits. There is no mass, hematoma, midline shift, or acute infarct. Impression: No acute intracranial abnormality. ACT 112: Negative or not required by law. Electronically signed by: Dex Gusman M.D. 03/16/2021 7:12 AM Head CTA 03/16/21 03:47 CT angio head w con CLINICAL HISTORY: Stroke Like Symptoms TECHNIQUE: CT angiography of the head was performed in a dynamic helical fashion during intravenous administration of 104 cc of Optiray. MIP imaging was performed. A dose lowering technique was utilized adhering to the principles of ALARA. CT DOSE: COMPARISON STUDY: 02/06/2021 FINDINGS: There are no lesion suspicious for aneurysm. There are no major intracranial branch occlusions. The dural venous sinuses appear patent. IMPRESSION: Unremarkable CT angiography the brain. ACT 112: Negative or not required by law. Electronically signed by: James Santiago M.D. 03/16/2021 7:15 AM Neck CTA 03/16/21 03:47 NECK CTA HISTORY: Left-sided facial droop. Stroke Like Symptoms TECHNIQUE: Multiaxial CT images of the neck were performed following the intravenous administration of contrast to evaluate the major cervical vessels. Maximum intensity projection images were also obtained. All measurements were calculated based on NASCET criteria. A dose lowering technique was utilized adhering to the principles of ALARA. COMPARISON STUDY: Neck CTA 02/06/2021. FINDINGS: The aortic arch and proximal great vessels are widely patent. There is no significant stenosis, occlusion, or dissection identified within the bilateral common carotid, internal carotid, or vertebral arteries. Emphysema. IMPRESSION: No significant stenosis, occlusion, or dissection identified within the carotid or vertebral arteries. ACT 112: Negative or not required by law. Electronically signed by: Dex Gusman M.D. 03/16/2021 7:25 AM Discharge Plan Visit Data Chief Complaint: Stroke Alert Stated Complaint: DOUBLE VISION,DIZZY,NAUSEA ED Provider: Sisi Wang Discharge Problem: CVA (cerebral vascular accident) Patient Disposition: Admitted As Inpatient Discharge Instructions Interventions: ED Discharge Assessment Last Done: 03/16/21 06:18 Discharge Problem: CVA (cerebral vascular accident) Qualifiers: CVA mechanism: unspecified Qualified Code(s): I63.9 - Cerebral infarction, unspecified
--- NOTE | 2021-03-16 06:02 | History & Physical Report ---
Date of Service March 16, 2021 Assessment & Plan (1) CVA (cerebral vascular accident): 51yo right-handed female presenting with stroke-like symptoms. Last normal at 01:30 - she presents with diplopia, dizziness, nausea and vertical gaze palsy. 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 Symptoms tonight are similar to prior. [place] [facility] [place] IV Alteplase in ER. Thus far symptoms are improving slightly. -Admit to MICU for post tPA care -Bleeding precautions, aspiration precautions and seizure precautions -Neuro checks and NIHSS per protocol -Dysphagia screening PRN -Blood pressure control -Maintain blood sugar 140 - 180 -Check MRI brain -Will not reorder Echo as patient had one completed one month ago -HgB A1C on 02/07/21 = 5.3 -Lipid panel on 02/07/21 with Total Cholesterol = 147, LDL = 92, HDL = 36, TG = 96 -No ASA x 24 hours -Continue Atorvastatin -Smoking cessation counseling -PT/OT evaluation ordered -Neurology Consultation appreciated -Orthophotography Technician consultation appreciated F/E/N - Normosol 100mL/hr x 1 liter, electrolytes WNL, NPO for now - advance diet as tolerated to heart healthy once dysphagia screening passed Ppx - SCDs Code - Full per discussion with patient. at bedside Dispo - Admit to MICU Present on Admission?: Yes History of Present Illness Chief Complaint: Stroke-like symptoms Primary Care Provider: NO PCP Brit Reeves is a 51yo right-handed C female with history of CVA in January 2021, tobacco use presenting with stroke-like symptoms. Patient was sitting on her couch tonight looking at her phone when at 01:30 she developed nausea, dizziness and double vision. She took two 81mg ASA at time of symptom onset. Symptoms persisted and she came to [facility] ER. Upon arrival patient afebrile, mildly hypertensive, hemodynamically stable. Initial NIHSS=4 - partial gaze palsy, partial hemianopia, minor facial palsy and limb ataxia. Code Stroke was initiated and patient was administered IV tPA/Alteplase. Alteplase is still infusing. Patient is still reporting diplopia as well as a warm/tingly sensation of her right posterior head. Otherwise, no complaints. Specifically denies DALY, chest pain, SOB, cough, abdominal pain, nausea, vomiting, diarrhea or constipation. No focal numbness/weakness. Patient was admitted to [facility] with similar symptoms on 02/06/21. She was found to have a small left posterior midbrain infarct. She was discharged home on ASA, Atorvastatin and instructed to quit smoking. Unfortunately she had not been taking her medications as prescribed and she continues to smoke appx 0.5 - 1 ppd. She notes an episode of transient dizziness and double vision that occurred 7 days ago which spontaneously resolved. ER Course: Alteplase 4mg + 36mg Allergies Allergy/AdvReac Type Severity Reaction Status Date / Time No Known Allergies Allergy Verified 02/06/21 20:41 Home Medications Medication Instructions Recorded Confirmed Type aspirin 81 mg PO DAILY 30 Days #30 tab 02/08/21 Rx atorvastatin 40 mg PO QAM 30 Days #30 tab 02/08/21 Rx Past Med/Surg History Medical History CVA (cerebral vascular accident) Stroke determined by clinical assessment Surgical History S/P cataract surgery Family History Mother Heart disease Hypertension Father , aged 34 of a motor vehicle accident No problems noted. 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 Other Information That Helps Us Care for You: No Feels Safe at Home: Yes Safety Concerns: Feels Safe At This Time Assistive Devices: None Review of Systems Review of Systems: All systems reviewed & are unremarkable except as noted in HPI & below Physical Exam Physical Exam: General: patient resting comfortably, NAD, non-toxic in appearance, AA&O x 4 Skin: warm, dry, intact, no rashes or lesions HEENT: NC/AT, PERRL, anicteric sclera, conjunctiva without injection, external ear normal to inspection and nontender, nares patent, moist mucus membranes, dentition intact, no oropharyngeal lesions, neck supple, trachea midline, no LAD, no thyromegaly, no JVD Heart: +S1/S2, regular, no m/r/g Lungs: equal air entry bilaterally, no rales/rhonchi/wheezes Abd: +BS, soft, NT/ND, no masses/organomegaly/ascites Ext: warm, 2+ pulses in UE/LE bilaterally, no clubbing/cyanosis or edema Neuro: AA&O x 4, speech clear and appropriate, no facial droop, patient with slightly dysconjugate gaze, limited upward and downward gaze, diplopia present by history, sensation to light touch intact, MS 5/5 in UE/LE bilaterally, right [id number] is abnormal as is [id number] testing Results & Data Results & Data ([facility]) Vital Signs (Past 12 Hours) Vital Signs Temp Pulse Pulse Resp BP BP Pulse Ox 03/16/21 05:20 74 14 161/93 H 96 03/16/21 05:07 36.6 C 03/16/21 05:05 71 14 166/102 H 94 03/16/21 05:02 36.9 C 74 19 166/102 H 95 03/16/21 04:50 74 14 152/100 H 95 03/16/21 04:45 75 22 95 03/16/21 04:42 75 17 158/101 H 96 03/16/21 04:36 73 23 160/99 H 95 03/16/21 04:30 72 16 03/16/21 04:15 72 18 143/91 H 95 03/16/21 04:02 82 23 97 03/16/21 03:45 146/90 H 03/16/21 03:24 36.7 C 92 H 18 155/85 H 94 Laboratory Results Lab Results 03/16/21 03/16/21 03/16/21 Range/Units 03:45 03:45 03:45 WBC 9.45 (4.8-10.8) K/uL RBC 4.24 (4.2-5.4) M/uL Hgb 14.2 (12.0-16.0) g/dL Hct 39.5 (37-47) % MCV 93.2 (80-100) fL MCH 33.5 (25-34) pg MCHC 35.9 (32-36) g/dL RDW Std Deviation 43.5 (36.4-46.3) fL RDW Coeff of Kera 12.8 (11.5-14.5) % Plt Count 265 (130-400) K/uL MPV 8.9 (7.4-10.4) fL Immature Gran % (Auto) 0.1 % Neut % (Auto) 52.6 % Lymph % (Auto) 33.7 % Calhoun % (Auto) 9.0 % Eos % (Auto) 3.6 % Baso % (Auto) 1.0 % Neut # (Auto) 4.98 (1.4-6.5) K/uL Lymph # (Auto) 3.18 (1.2-3.4) K/uL Calhoun # (Auto) 0.85 H (0.11-0.59) K/uL Eos # (Auto) 0.34 (0-0.5) K/uL Baso # (Auto) 0.09 (0-0.2) K/uL Immature Gran # (Auto) 0.01 (0.00-0.02) K/uL PT 10.3 (9.0-12.0) Seconds INR 1.0 (0.9-1.1) APTT 25.6 (21.0-31.0) Seconds PTT Ratio 1.0 Sodium (136-145) mmol/L Potassium (3.5-5.1) mmol/L Chloride (98-107) mmol/L Carbon Dioxide (21-32) mmol/L Anion Gap (3-11) BUN (7-18) mg/dl Creatinine (0.6-1.2) mg/dl Est Cr Clr Drug Dosing ml/min Est GFR ( Amer) Est GFR (Non-Af Amer) BUN/Creatinine Ratio (10-20) Glucose (70-99) mg/dl Calcium (8.5-10.1) mg/dl Magnesium (1.8-2.4) mg/dl Total Bilirubin (0.2-1) mg/dl AST (15-37) U/L ALT (12-78) U/L Alkaline Phosphatase (45-117) U/L Troponin I (0-0.045) ng/ml Total Protein (6.4-8.2) gm/dl Albumin (3.4-5.0) gm/dl Globulin (2.5-4.0) gm/dl Albumin/Globulin Ratio (0.9-2) COVID-19 Eval Order Blood Type A Positive Antibody Screen NEGATIVE 03/16/21 03/16/21 Range/Units 03:45 04:55 WBC (4.8-10.8) K/uL RBC (4.2-5.4) M/uL Hgb (12.0-16.0) g/dL Hct (37-47) % MCV (80-100) fL MCH (25-34) pg MCHC (32-36) g/dL RDW Std Deviation (36.4-46.3) fL RDW Coeff of Kera (11.5-14.5) % Plt Count (130-400) K/uL MPV (7.4-10.4) fL Immature Gran % (Auto) % Neut % (Auto) % Lymph % (Auto) % Calhoun % (Auto) % Eos % (Auto) % Baso % (Auto) % Neut # (Auto) (1.4-6.5) K/uL Lymph # (Auto) (1.2-3.4) K/uL Calhoun # (Auto) (0.11-0.59) K/uL Eos # (Auto) (0-0.5) K/uL Baso # (Auto) (0-0.2) K/uL Immature Gran # (Auto) (0.00-0.02) K/uL PT (9.0-12.0) Seconds INR (0.9-1.1) APTT (21.0-31.0) Seconds PTT Ratio Sodium 139 (136-145) mmol/L Potassium 3.2 L (3.5-5.1) mmol/L Chloride 109 H (98-107) mmol/L Carbon Dioxide 28 (21-32) mmol/L Anion Gap 2.0 L (3-11) BUN 10 (7-18) mg/dl Creatinine 0.64 (0.6-1.2) mg/dl Est Cr Clr Drug Dosing 72.5 ml/min Est GFR ( Amer) 121.4 Est GFR (Non-Af Amer) 104.8 BUN/Creatinine Ratio 15.9 (10-20) Glucose 103 H (70-99) mg/dl Calcium 8.2 L (8.5-10.1) mg/dl Magnesium 2.2 (1.8-2.4) mg/dl Total Bilirubin 0.3 (0.2-1) mg/dl AST 5 L (15-37) U/L ALT 11 L (12-78) U/L Alkaline Phosphatase 50 (45-117) U/L Troponin I < 0.015 (0-0.045) ng/ml Total Protein 6.8 (6.4-8.2) gm/dl Albumin 3.4 (3.4-5.0) gm/dl Globulin 3.4 (2.5-4.0) gm/dl Albumin/Globulin Ratio 1.0 (0.9-2) COVID-19 Eval Order CovFluRsv at [facility] Blood Type Antibody Screen ECG Additional Comments: NSR at 70bpm, normal axis, EH=542, QRS=88, ZBr=539, no acute ischemic changes, poor R-wave progression Critical Care Time Critical Care Time: Yes Total Critical Care Time: 30 PG Care Time/CCT Total # of Minutes Spent Total Time Spent with Patient: Total time spent is greater than 50% in coordination of care (as documented) at patient's floor/unit and/or counseling patient: Critical Care Time: Yes Total Critical Care Time: 30 Coding Level of Care Code None Diagnoses CVA (cerebral vascular accident) I63.9 CVA mechanism: unspecified Additional Codes Critical Care Time - Critical Care Time: Yes ([id number]) (1) CVA (cerebral vascular accident) CVA mechanism: unspecified Qualified Code(s): I63.9 - Cerebral infarction, unspecified
[2021-03-16 06:04] LABS: Influenza A virus by PCR Negative (Neg); Influenza B virus by PCR Negative (Neg); RSV by PCR Negative (Neg); SARS CoV2 RNA(COVID-19) InHosp NEGATIVE (Negative)
[2021-03-16] MEDS ORDERED: LABETALOL HCL IV 5 MG/ML 20ML IV PRN (06:36)
[2021-03-16] MEDS ORDERED: PHARMACIST DISCHARGE MED REC CONSULT PRN (06:36)
[2021-03-16] MEDS ORDERED: ICU PROTOCOL FOR HYPERGLYCEMIA PRN (06:36)
[2021-03-16] MEDS: NORMOSOL-R 1,000 ML IV SCH ×2 (06:43→18:38)
--- NOTE | 2021-03-16 07:13 | CT Scan Report ---
HEAD CT NONCONTRAST CT DOSE: HISTORY: Left-sided facial droop. Stroke Like Symptoms TECHNIQUE: Multiaxial CT images of the head were performed without the use of intravenous contrast. A utomated exposure control was utilized for this study. A dose lowering technique was utilized adheri ng to the principles of ALARA. Comparison: Head CT 02/06/2021. Findings: Mild mucosal thickening within the ethmoid air cells. The mastoid air cells are clear. The calvarium and skull base are intact. The ventricles and sulci are within normal limits. There is no m ass, hematoma, midline shift, or acute infarct. Impression: No acute intracranial abnormality. ACT 112: Negative or not required by law. Electronically signed by: Dex Gusman M.D. 03/16/2021 7:12 AM
--- NOTE | 2021-03-16 07:16 | CT Scan Report ---
CT angio head w con CLINICAL HISTORY: Stroke Like Symptoms TECHNIQUE: CT angiography of the head was performed in a dynamic helical fashion during intravenous a dministration of 104 cc of Optiray. MIP imaging was performed. A dose lowering technique was utilized adhering to the principles of ALARA. CT DOSE: COMPARISON STUDY: 02/06/2021 FINDINGS: There are no lesion suspicious for aneurysm. There are no major intracranial branch occlusi ons. The dural venous sinuses appear patent. IMPRESSION: Unremarkable CT angiography the brain. ACT 112: Negative or not required by law. Electronically signed by: James Santiago M.D. 03/16/2021 7:15 AM
--- NOTE | 2021-03-16 07:26 | CT Scan Report ---
NECK CTA HISTORY: Left-sided facial droop. Stroke Like Symptoms TECHNIQUE: Multiaxial CT images of the neck were performed following the intravenous administration o f contrast to evaluate the major cervical vessels. Maximum intensity projection images were also obta ined. All measurements were calculated based on NASCET criteria. A dose lowering technique was utili zed adhering to the principles of ALARA. COMPARISON STUDY: Neck CTA 02/06/2021. FINDINGS: The aortic arch and proximal great vessels are widely patent. There is no significant sten osis, occlusion, or dissection identified within the bilateral common carotid, internal carotid, or v ertebral arteries. Emphysema. IMPRESSION: No significant stenosis, occlusion, or dissection identified within the carotid or vertebral arteries . ACT 112: Negative or not required by law. Electronically signed by: Dex Gusman M.D. 03/16/2021 7:25 AM
--- NOTE | 2021-03-16 07:34 | Critical Care Consultation ---
Date of Consultation March 16, 2021 Assessment & Plan (1) CVA (cerebral vascular accident): Reason Critically Ill: Brit is a 51-year-old right-handed female with a notable history of cerebrovascular attack in 01/2021 (localized at L posterior medial midbrain by MRI) and tobacco use who presented to [facility] early on 03/16 for evaluation of stroke-like symptoms (nausea, vertical gaze palsy, diplopia, dizziness, L facial droop) that began at 0130h on 03/16, and subsequently underwent stroke alert evaluation with administration of IV tPA at 0430. She remains hemodynamically stable in the ICU for intensive neurological monitoring. 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 * Neuro checks, NIHSS per ICU protocol * F/U MRI * Atorvastatin, hold ASA for 24 hours * Passed swallow evaluation - resume diet * Await evaluations by PT, OT * Will require intensive counselling regarding medication adherence and tobacco cessation to prevent future recurrences, vascular protection Cardiac - * Mildly hypertensive on arrival, throughout course * Maintain BPs < 180/105, as above - labetalol p.r.n. on chart * Vascular protection, counselling throughout course, prior to d/c * Although ASCVD is low (4.6%), lifetime risk is 40% and the fact she has already had at least 2 strokes is much more concerning for higher risk * Continuous cardiac monitoring * Consider 30-day outpatient cardiac monitoring to r/o paroxysmal dysrhythmias Respiratory - * Significant smoking history for many years, currently 0.5 - 1ppd * Encourage cessation, NRT, establish with PCP * Without oxygen requirement * Continuous pulse oximetry GI - * Passed swallow evaluation * Heart healthy diet thereafter RENAL/LYTES - * BUN/Cr stable at baseline * Replete K * Replete other lytes p.r.n. - * No concerns at present ENDO - * Maintain BSG between 140-180 * A1c 5.3% in 03/16 * Hyperglycemia ICU protocol HEME - * Stable H&H * Will monitor for any drops in setting of tPA ID - * Afebrile on arrival, no recent infectious symptoms * No concerns for infection at this point INTEGUMENTARY - * No concerns at present LINES/IV ACCESS - 2x PIV in UEs DVT PROPHYLAXIS - * SCDs Dispo: ICU level of care s/p tPA at least until 03/17 Thank you for allowing us to be part of this patient's care. Please refer to Dr. Robles's documentation for any further recommendations. Supervising Physician Co-Signing Physician Notes Dr. Red was the resident-physician during care of patient. I separately evaluated patient for davis portions of the history and the exam. I was present during the critical portion of medical decision making, and I discussed the case with the resident. I generally agree with the findings and plan except for any additions/exceptions noted. Patient seen and examined at bedside. No acute distress. Patient got TPA around 4:30 AM because of strokelike symptoms. She had strokelike symptoms even last month. Patient denies any chest pain, no shortness of breath, no chest pain, no dizziness, no headache, no nausea, no vomiting, no blurry vision. On physical exam there is no neurological deficit. She is able to move all the extremities appropriately. Cranial nerves are intact. She does get a little bit dizzy when she is looking up. She is an active smoker a pack a day. Does marijuana occasionally. No family history of asthma. Chest x-ray shows hyperinflation. Likely underlying emphysema. Plan: Keep blood pressure less than 180/105. Continue with neurochecks. Aspiration precautions. We will start the patient on Incruse inhaler to be used on a daily basis. MRI of the brain is showing frontal infarct. Patient does have a history of PFO appreciated on echo done January 2021 Would recommend repeating echo to see if it has increased in size. Cardiology consult to see if there are any any intervention needed to close the PFO given the patient is only 51 [address] head in 24 hours. Patient was noncompliant with aspirin and statin which was recommended on the l ast visit for TIA. Resume aspirin and statin once the patient is able to swallow. Please note the above document was generated using voice recognition software. It may contain grammatical, syntax or spelling errors.Any formal questions or concerns about the content, text or information contained within the body of this dictation should be directly addressed to the provider for clarification. History of Present Illness Attending Physician: Dr. Robles - Missile Pad Mechanic Brit is a 51-year-old right-handed female with a notable history of cerebrovascular attack in 01/2021 (L posterior medial midbrain) and tobacco use who presented to [facility] early on 03/16 for evaluation of strokelike symptoms. History is obtained from patient as well as chart review. Patient noted that she was sitting on her couch very early in the morning hours when around 0130, she began developing nausea, dizziness, and double vision. She remembered being told that if this happened again, to take to baby aspirin. She did, however she did endorse vomiting these. As such, she reported to the ER. Upon her arrival here, she was found to be hemodynamically stable and afebrile with an NIHSS of 4. This was mild left sided facial droop, appreciable for partial gaze palsy, hemianopsia, minor facial palsy, and right-sided limb ataxia. Stroke alert was initiated. On exam, she was noted to have upward gaze palsy as well as some dysmetria with [id number], but no other focal deficits. CT of the head without acute findings. ECG without arrhythmia. Electrolytes and sugar without significant abnormality. Review of echo from January revealed normal biventricular function with an LVEF of 60 to 65% as well as a small right to left shunt appreciated with Valsalva maneuver. CT-A Head/Neck without suspicious lesions or acute abnormalities; no appreciable stenosis. MRI from last month revealing of 4mm L posterior medial midbrain c/f acute infarct. She was started on intravenous alteplase at approximately 0430. She has remained hemodynamically stable since her arrival to the ICU. In talking with her this morning, she notes that she is still having intermittent double vision as well as feeling like her eyes are "weird." She denies any dizziness or nausea present. Denies any focal weakness from her perspective in the arms or the legs. She denies any numbness or tingling. Denies any headache. Denies any chest pain, palpitations, shortness of breath. Of note, after discharge from previous hospitalization in January, patient was not compliant with medications including aspirin and atorvastatin. She also continued to smoke, about half to 1 pack/day. Allergies Allergy/AdvReac Type Severity Reaction Status Date / Time No Known Allergies Allergy Verified 02/06/21 20:41 Home Medications Medication Instructions Recorded Confirmed Type aspirin 81 mg PO DAILY 30 Days #30 tab 02/08/21 Rx atorvastatin 40 mg PO QAM 30 Days #30 tab 02/08/21 Rx Patient History Medical History CVA (cerebral vascular accident) Stroke determined by clinical assessment Surgical History S/P cataract surgery Family History Mother Heart disease Hypertension Father , aged 34 of a motor vehicle accident No problems noted. 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 Appears tired. NAD. HEENT: NCAT. No appreciable facial droop. Eyes - Sclera are white, anicteric, and without injection. See neuro exam below for eye findings. Mouth - MMM with no tonsillar edema or exudates. Cardiac: Normal rate and regular rhythm; S1 and S2 present with no murmurs, rubs, or gallops. No carotid bruits. No peripheral edema. Pulmonary: Good respiratory effort with symmetric expansion of the chest. No use of accessory muscles. Lungs were clear to auscultation bilaterally with no crackles or wheezes. Abdominal: Normoactive bowel sounds. Abdomen was soft, nondistended, and non- tender to palpation. No hepatomegaly or splenomegaly. Extremities: Upper and lower extremities are warm and well perfused. Radial and dorsalis pedis pulses were 2+ b/l. Capillary refill assessed in UE was < 3 sec. Neuro: - Cranial Nerves: CN I, IX, and X - not assessed. II - Right pupil responds appropriately to direct and indirect pupillary reflexes; left pupil a bit more sluggish but does respond. III - EOM testing revealing difficulty with upward gaze. No nystagmus. V - Facial sensation in tact in all three divisions; jaw opening WNL. VII - Patient is able to smile symmetrically and keep eyes close against resistance. VIII - Patient is able to hear finger snapping equally and appropriately. Patient is able to rotate head and shrug shoulders against resistance. XI - Soft palate raises equally and appropriately while saying "ah." XII - patient is able to stick out tongue and deviate from [id number] appropriately. - Motor: UE - Finger, wrist, elbow, and shoulder strength is 4/5 bilaterally. LE - Hip, knee, and ankle strength is 4/5 bilaterally. - Sensation: UE and LE sensation to light touch is grossly intact bilaterally. - Reflexes - Biceps 2+ b/l; brachioradialis 2+ b/l; patellar 2+ b/l; Achilles 2+ b/l. No clonus. - [id number]-st-ymij: WNL b/l. No dysmetria. Hwkh-sk-oeut; WNL b/l. Psych: Well-developed, well-nourished, appropriately dressed for occasion. Behav ior is cooperative and appropriate. Affect is WNL. Insight is appropriate. Results & Data Results & Data ([facility]) Vital Signs (Past 12 Hours) Vital Signs Temp Pulse Pulse Resp BP BP Pulse Ox 03/16/21 06:36 36.7 C 79 20 145/95 H 96 03/16/21 06:20 70 14 106/71 93 03/16/21 06:05 72 14 133/88 93 03/16/21 05:50 75 14 152/114 H 94 03/16/21 05:35 74 16 169/116 H 97 03/16/21 05:20 74 14 161/93 H 96 03/16/21 05:07 36.6 C 03/16/21 05:05 71 14 166/102 H 94 03/16/21 05:02 36.9 C 74 19 166/102 H 95 03/16/21 04:50 74 14 152/100 H 95 03/16/21 04:45 75 22 95 03/16/21 04:42 75 17 158/101 H 96 03/16/21 04:36 73 23 160/99 H 95 03/16/21 04:30 72 16 03/16/21 04:15 72 18 143/91 H 95 03/16/21 04:02 82 23 97 03/16/21 03:45 146/90 H 03/16/21 03:24 36.7 C 92 H 18 155/85 H 94 03/16/21 03:45 03/16/21 03:45 Resident Activity Tracking Resident Involvement: Resident Care Provided Care Provided: Adult Hospital Medicine (1) CVA (cerebral vascular accident) CVA mechanism: unspecified Qualified Code(s): I63.9 - Cerebral infarction, unspecified
[2021-03-16] MEDS ORDERED: GADOBUTROL 65ML VIAL IV ONE (09:32)
--- NOTE | 2021-03-16 09:50 | XRay Report ---
SINGLE VIEW CHEST CLINICAL HISTORY: Strokelike symptoms. FINDINGS: An AP, portable, upright chest radiograph is obtained. No prior studies are available for c omparison at the time of dictation. The examination is degraded by portable technique and patient rot ation. The cardiomediastinal silhouette is unremarkable. Emphysematous change is noted. No airspace consolidation or large pleural effusion is identified. No pneumothorax is seen. The bony thorax is gr ossly intact. IMPRESSION: Emphysematous change with no acute cardiopulmonary abnormality. ACT 112: Negative or not required by law. Electronically signed by: Marco Helms M.D. 03/16/2021 9:49 AM
--- NOTE | 2021-03-16 09:56 | Magnetic Resonance Report ---
MRI OF THE BRAIN WITHOUT AND WITH IV CONTRAST CLINICAL HISTORY: CVA COMPARISON STUDY: Noncontrast head CT dated 03/16/2021, MRI the brain no contrast dated 02/08/2021 TECHNIQUE: MRI of the brain was performed from the vertex to the skull base utilizing various T1 and T2 weighted sequences. Following the IV administration of 4.5 mL of Gadavist contrast, additional enh anced images were obtained. FINDINGS: Sagittal T1, axial diffusion, proton density and T2 weighted axial, coronal FLAIR, and pre and post a xial T1-weighted images were acquired. These were supplemented with post gadolinium coronal T1 weight ed images. No intra or extra-axial mass lesions are visualized. There is a 3 mm focus of restricted water diffusion within the base the right frontal lobe versus art ifact. There is no evidence of ventricular dilatation. Proton density T2-weighted and FLAIR images reveal there is a stable 4 mm focus of increased T2 signa l within the left thalamus, possibly affecting an old lacunar infarct. This remains unchanged from th e preceding study. There are no abnormal flow voids. There is no evidence of pathologic enhancement. IMPRESSION: 1. No evidence of intracranial mass 2. No evidence of pathologic enhancement 3. Artifact versus tiny 3 mm acute/subacute infarct within the base the right frontal lobe. ACT 112: Negative or not required by law. Electronically signed by: James Santiago M.D. 03/16/2021 9:54 AM
--- NOTE | 2021-03-16 10:16 | Neurology Consultation ---
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 Signs and symptoms resolved after patient received TPA. Follow-up brain MRI generally unremarkable although does reveal a questionable punctate ischemic focus within the right frontal lobe. This finding may be artifactual, however, I would not really explain her clinical presentation which would localize to the brainstem/midbrain. Patient has been noncompliant with previous recommendations for daily low-dose aspirin, atorvastatin, and smoking cessation. Additional counseling was given to the patient regarding the importance of compliance with these recommendations to reduce her risk of recurrent stroke going forward. Stroke risk factors for this patient include cigarette smoking and possible small PFO with right to left shunt. Restart daily low-dose aspirin 24 hours after TPA administration. Continue with atorvastatin. Smoking cessation counseling. Consider obtaining 30-day mobile cardiac outpatient telemetry. No further immediate neurological recommendations. History of Present Illness Reason for Consultation: Stroke Requesting Physician: Yaima Sutherland DO Attending Physician: Nataliia Kilgore MD History of Present Illness The patient is a 51-year-old female with a chief complaint of diplopia that began acutely last night at around 1:30 AM. She experienced vertical diplopia with an element of tilt and associated nausea, poor balance, and neck pain. The symptoms resolved after receiving TPA in the emergency department. Patient had a very similar presentation to [facility] last month and was diagnosed with a small midbrain stroke at that time. Although she was prescribed daily low-dose aspirin and atorvastatin she has been noncompliant with this recommendation. She has also continued to smoke cigarettes. 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 A follow-up brain MRI completed this morning revealed a questionable acute to subacute infarct within the base of the right frontal lobe although the finding is possibly artifactual. Her previous brain MRI completed February 08, 2021 had revealed an acute ischemic infarct within the left posterior medial midbrain. CT angiography of the head and neck are unremarkable. Allergies Allergy/AdvReac Type Severity Reaction Status Date / Time No Known Allergies Allergy Verified 02/06/21 20:41 Home Medications Medication Instructions Recorded Confirmed Type aspirin 81 mg PO DAILY 30 Days #30 tab 02/08/21 Rx atorvastatin 40 mg PO QAM 30 Days #30 tab 02/08/21 Rx Patient History Medical History CVA (cerebral vascular accident) Stroke determined by clinical assessment Surgical History S/P cataract surgery Family History Mother Heart disease Hypertension Father , aged 34 of a motor vehicle accident No problems noted. 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 Feels Safe at Home: Yes Assistive Devices: None Review of Systems Constitutional: no fever and no chills Eyes: as per Subjective / HPI; no blind spots and no eye pain Ear, Nose, Mouth, Throat: no hearing loss Respiratory: no cough and no dyspnea Cardiovascular: no chest pain and no palpitations Gastrointestinal: + nausea Genitourinary: no dysuria Musculoskeletal: + neck pain Integumentary: no rash and no lesions Neurologic: as per Subjective / HPI Psychiatric: no depression and no anxiety Hematologic / Lymphatic: no easy bleeding and no easy bruising Exam (Neuro) Constitutional: well developed and well nourished; no acute distress Eyes: normal visual etienne by confrontation, PERRL, normal accommodation and EOM intact bilaterally; no fundoscopic abnormality, no nystagmus and no papilledema Cardiovascular: Vessels: normal carotid upstroke; no carotid bruit Neurologic: Oriented to:: Person, Place and Time Memory: Short Term Intact and Remote Intact Attention: Span Intact and Concentration Intact Language: Naming Objects and Repeating Phrases Speech Fluency: negative Dysarthria Speech Aphasia: negative Aphasia Fund of Knowledge: Current Events, Past History and Vocabulary Cranial Nerves: Normal II (Visual etienne full to confrontation, visual acuity normal), III, IV, (Pupils equal round reactive to light and accommodation, eye movements normal), V (Facial sensation intact), VII (There is no facial droop or weakness), VIII (Hearing intact), IX, X (Palate elevates to midline), XI (Shoulder shrug intact) and XII (Tongue protrudes to midline) Motor Strength: Normal Lower Extremities and Normal Upper Extremities; negative Pronator Drift Motor Tone: Normal Lower Extremities and Normal Upper Extremities Muscle Bulk/Involuntary Movements: No Involuntary Movements; negative Muscle Atrophy Sensation: Light Touch Intact, Pain/Temperature Intact, Vibration Intact and Proprioception Intact Coordination: Normal; negative Limited Balance, Dysdiadochokinesia, Finger-Nose Abnormal and Heel-Sanchez Abnormal Deep Tendon Reflexes: Rt Triceps: 2+, Lt Triceps: 2+, Rt Biceps: 2+, Lt Biceps: 2+, Rt Brachioradialis: 2+, Lt Brachioradialis: 2+, Rt Patellar: 2+, Lt Patellar: 2+, Rt Ankle: 2+ and Lt Ankle: 2+ Special Tests: negative Babinski Present Gait: Normal Station and Gait Results & Data ([facility]) Vital Signs (Past 12 Hours) Vital Signs Temp Pulse Pulse Resp BP BP Pulse Ox 03/16/21 08:05 36.6 C 73 18 137/89 93 03/16/21 07:35 36.7 C 71 15 142/83 H 93 03/16/21 07:05 36.7 C 69 21 110/75 93 03/16/21 06:45 36.7 C 03/16/21 06:36 36.7 C 79 20 145/95 H 96 03/16/21 06:20 70 14 106/71 93 03/16/21 06:05 72 14 133/88 93 03/16/21 05:50 75 14 152/114 H 94 03/16/21 05:35 74 16 169/116 H 97 03/16/21 05:20 74 14 161/93 H 96 03/16/21 05:07 36.6 C 03/16/21 05:05 71 14 166/102 H 94 03/16/21 05:02 36.9 C 74 19 166/102 H 95 03/16/21 04:50 74 14 152/100 H 95 03/16/21 04:45 75 22 95 03/16/21 04:42 75 17 158/101 H 96 03/16/21 04:36 73 23 160/99 H 95 03/16/21 04:30 72 16 03/16/21 04:15 72 18 143/91 H 95 03/16/21 04:02 82 23 97 03/16/21 03:45 146/90 H 03/16/21 03:24 36.7 C 92 H 18 155/85 H 94 Laboratory Results WBC 9.45, hemoglobin 14.2, hematocrit 39.5, platelet count 265, sodium 139, potassium 3.2, BUN 10, creatinine 0.64, glucose 103, troponin less than 0.015, triglycerides 96, cholesterol 147, LDL 92, VLDL 19, HDL 36 Diagnostic Findings Imaging as described in the history of present illness. An electrocardiogram reveals a normal sinus rhythm, 70 bpm. An echocardiogram completed February 07, 2021 revealed normal left ventricular size and systolic function, ejection fraction 60 to 65%, no regional wall motion abnormalities. The study did suggest a small right to left interatrial shunt. Left atrial size normal. Right atrial size normal. PG Care Time/CCT Total # of Minutes Spent Total Time Spent with Patient: Total time spent is greater than 50% in coordination of care (as documented) at patient's floor/unit and/or counseling patient: Coding Level of Care Code 33575 Initial Inpt Care Lvl 3 Diagnoses CVA (cerebral vascular accident) I63.9 CVA mechanism: unspecified (1) CVA (cerebral vascular accident) CVA mechanism: unspecified Qualified Code(s): I63.9 - Cerebral infarction, unspecified
[2021-03-16] MEDS: POTASSIUM CHLORIDE / WTR 10 MEQ/100 ML PLCT IV SCH ×2 (10:27→11:36)
[2021-03-16] MEDS: ATORVASTATIN 40 MG TAB PO SCH (11:36)
--- NOTE | 2021-03-16 12:28 | Billing Data ---
Date of Service March 16, 2021 Coding Level of Care Code 15492 Inpt Consult Level 4
[2021-03-16] MEDS: UMECLIDINIUM BROMIDE 62.5MCG/BLISTER 7 PUFFS/INHALER INH SCH (14:42)
--- NOTE | 2021-03-16 16:18 | Electrocardiogram Report ---
Test Reason : Blood Pressure : / mmHG Vent. Rate : 070 BPM Atrial Rate : 070 BPM P-R Int : 146 ms QRS Dur : 088 ms QT Int : 398 ms P-R-T Axes : 083 055 056 degrees QTc Int : 429 ms Normal sinus rhythm Confirmed by Kristopher Knight ([id number]) on 03/16/2021 4:18:27 PM Referred By: REFERRED SELF Confirmed By:Anthony Knight
--- NOTE | 2021-03-16 18:57 | History & Physical Bridge Note ---
Date of Service March 16, 2021 History & Physical Bridge Note I have examined the patient, reviewed the History & Physical and in the interval since the performance of the History & Physical I have noted the following changes of clinical significance: Chart reviewed and discussed the case with prefitter. MRI of the brain with artifact versus tiny 3 mm acute/subacute infarct in the base of the right frontal lobe History reviewed Previous echocardiogram with possible right to left shunt-ordered echocardiogram with bubble study to be repeated for tomorrow and consider cardiology consultation -Ordered CT head at the 24 hours status post TPA max for tomorrow morning -Plan to start aspirin after 24 hours from TPA administration
[2021-03-17 07:02] LABS: Basophils # (auto) 0.08 K/uL (0-0.2); Basophils % (auto) 1.2 %; Eosinophils # (auto) 0.42 K/uL (0-0.5); Eosinophils % (auto) 6.1 %; Hematocrit (blood only) 38.7 % (37-47); Hemoglobin 13.6 g/dL (12.0-16.0); Immature Granulocytes # (auto) 0.01 K/uL (0.00-0.02); Immature Granulocytes % (auto) 0.1 %; Lymphocytes # (auto) 2.47 K/uL (1.2-3.4); Lymphocytes % (auto) 35.8 %; Mean Corpuscular Hemoglobin 33.3 pg (25-34); Mean Corpuscular Hgb Conc 35.1 g/dL (32-36); Mean Corpuscular Volume 94.6 fL (80-100); Mean Platelet Volume 8.8 fL (7.4-10.4); Monocytes # (auto) 0.69 K/uL (0.11-0.59); Neutrophils # (auto) 3.22 K/uL (1.4-6.5); Neutrophils % (auto) 46.8 %; Platelet Count 245 K/uL (130-400); RDW Coefficient of Variation 13.1 % (11.5-14.5); RDW Standard Deviation 45.3 fL (36.4-46.3); Red Blood Count 4.09 M/uL (4.2-5.4); White Blood Count 6.89 K/uL (4.8-10.8)
--- NOTE | 2021-03-17 07:23 | CT Scan Report ---
CT OF THE HEAD WITHOUT CONTRAST CLINICAL HISTORY: f/u tPA administration COMPARISON STUDY: Head CT, CTA of the head and MRI of the brain March 16, 2021. CT DOSE: 537.48 mGy.cm TECHNIQUE: Helical axial images of the head were obtained without IV contrast. Automated exposure con trol was utilized for the study. A dose lowering technique was utilized adhering to the principles o f ALARA. FINDINGS: No acute intracranial hemorrhage, midline shift or mass effect is present. The ventricular system is unremarkable. The basal cisterns are patent. No extra-axial collections are present. There are no findings to suggest acute dural sinus thrombosis or acute territorial infarct. No significant calvarial abnormalities are present. Visualized portions of the sinuses and mastoid air cells are mateo ar. IMPRESSION: No acute intracranial findings. ACT 112: Negative or not required by law. Electronically signed by: [place] M.D. 03/17/2021 7:22 AM
[2021-03-17 07:35] LABS: BUN Creatinine Ratio 14.5 (10-20); Calcium 8.6 mg/dl (8.5-10.1); Creatinine Clr Calc Pharmacy 89.3 ml/min; Est GFR (Non-African American) 112.2; Potassium 4.1 mmol/L (3.5-5.1)
[2021-03-17] MEDS: ATORVASTATIN 40 MG TAB PO SCH (07:49)
[2021-03-17] MEDS: UMECLIDINIUM BROMIDE 62.5MCG/BLISTER 7 PUFFS/INHALER INH SCH (07:49)
[2021-03-17] MEDS ORDERED: ASPIRIN 81 MG ECTAB PO SCH (09:00)
--- NOTE | 2021-03-17 12:18 | Critical Care Progress Note ---
Date of Service March 17, 2021 Assessment & Plan (1) CVA (cerebral vascular accident): Reason Critically Ill: Brit is a 51-year-old right-handed female with a notable history of cerebrovascular attack in 01/2021 (localized at L posterior medial midbrain by MRI) and tobacco use who presented to [facility] early on 03/16 for evaluation of stroke-like symptoms (nausea, vertical gaze palsy, diplopia, dizziness, L facial droop) that began at 0130h on 03/16, and subsequently underwent stroke alert evaluation with administration of IV tPA at 0430. She remains hemodynamically stable in the ICU for intensive neurological monitoring. --Stroke S/p TPA 03/16/2021 Patient had repeat CAT scan for 2423 which did not show any signs of bleeding. Patient is tolerating p.o. diet. No focal deficit. Aspirin has been started today. Continue with statin. Neurology on board --COPD Patient has been started on Incruse to be used on a daily basis Will benefit from outpatient follow-up with pulmonary along with PFTs. --Active smoker Advised to quit --Prophylaxis VTE: IPC's GI: None Lines: Peripheral Diet: Healthy heart Plan: In/out: +120, urine output 2250 Patient does have a history of PFO appreciated on echo done January 2021 Recommend repeating echo to see if it has increased in size. Cardiology consult to see if there are any any intervention needed to close the PFO given the patient is only 51 years old. Nonurgent follow-up with outpatient pulmonary will be helpful. Patient is neurologically hemodynamically stable to be downgraded to a medical floor. Please note the above document was generated using voice recognition software. It may contain grammatical, syntax or spelling errors.Any formal questions or concerns about the content, text or information contained within the body of this dictation should be directly addressed to the provider for clarification. (2) Current smoker: (3) COPD with emphysema: Admission and Anticipated Discharge Date Admission Date: March 16, 2021 Subjective Patient seen and examined at bedside. No acute distress, no adverse events overnight. Patient complaint of mild headache. No nausea or vomiting. No blurry vision. Had breakfast in the morning. No chest pain, no shortness of breath Review of Systems Review of Systems: All systems reviewed & are unremarkable except as noted in Subjective Physical Exam Physical Exam: Constitutional: No acute distress HEENT: EOMI, PERRLA Respiratory system: Good air entry bilaterally, minimal crackles bilateral lower lobes, no rhonchi, no wheeze CVS: S1-S2 positive, no murmurs or gallops Abdomen: Soft, nontender, nondistended, positive bowel sounds x4 Extremities: +2 pulses bilaterally radialis/ dorsalis pedis, no cyanosis, no edema Neuro: Awake alert oriented x3, 5/5 strength bilateral upper and lower extremity, cranial nerves II to XII grossly intact Psych: Normal mood and affect G/U: No [place] Skin: no rashes, warm and dry Lymphatic: no cervical or axillary lymphadenopathy Results & Data Results & Data ([facility]) Vital Signs (Past 12 Hours) Vital Signs Temp Pulse Pulse Resp BP BP Pulse Ox 03/17/21 11:43 94 03/17/21 08:45 69 19 95 03/17/21 08:36 77 20 127/61 93 03/17/21 08:30 81 20 95 03/17/21 08:25 80 23 127/61 93 03/17/21 08:23 87 24 179/101 H 96 03/17/21 08:15 70 17 94 03/17/21 08:00 72 24 177/103 H 94 03/17/21 07:45 71 21 95 03/17/21 07:30 72 24 94 03/17/21 07:15 68 22 95 03/17/21 07:01 75 20 140/107 H 96 03/17/21 07:00 36.8 C 74 70 17 140/105 H 96 03/17/21 06:00 65 16 112/82 95 03/17/21 05:05 72 16 118/74 95 03/17/21 04:05 36.8 C 74 16 156/95 H 93 03/17/21 03:05 37 C 67 16 128/74 94 03/17/21 02:05 36.9 C 66 16 149/88 H 95 03/17/21 01:05 36.9 C 73 16 132/79 95 03/17/21 06:45 03/17/21 06:45 Coding Level of Care Code 64291 Subseq Hosp Care Lvl 3 Diagnoses CVA (cerebral vascular accident) I63.9 CVA mechanism: unspecified Current smoker F17.200 COPD with emphysema J43.9 (1) CVA (cerebral vascular accident) CVA mechanism: unspecified Qualified Code(s): I63.9 - Cerebral infarction, unspecified
[2021-03-17] MEDS ORDERED: NICOTINE 14 MG/24 HR PATCH TD SCH (12:30)
--- NOTE | 2021-03-17 14:54 | Ultrasound Report ---
ULTRASOUND BILATERAL LOWER EXTREMITY VENOUS CLINICAL HISTORY: Stroke. Patent foramen ovale. Clinical concern for deep venous thrombosis with para doxical embolus. COMPARISON STUDY: No priors. TECHNIQUE: Real-time, grayscale, and color Doppler sonography of the deep veins of the right and left lower extremity was performed from the inguinal crease to the calf. Compression and augmentation wer e utilized. FINDINGS: There is no sonographic evidence of deep venous thrombosis identified in the right or left lower extremity. The common femoral, superficial femoral, and popliteal veins are patent and normally compressible bilaterally. The greater saphenous vein and the profunda femoris vein at the junction w ith the common femoral vein are clear in both legs. The visualized calf veins are patent bilaterally. IMPRESSION: There is no sonographic evidence of deep venous thrombosis identified in the right or lef t lower extremity. ACT 112: Negative or not required by law. Electronically signed by: Marco Helms M.D. 03/17/2021 2:52 PM
[2021-03-17] MEDS ORDERED: STROKE PATIENT DISCHARGE STA (16:56)
--- NOTE | 2021-03-17 17:01 | Discharge Summary ---
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 Patient was sitting on her couch tonight looking at her phone when at 01:30 she developed nausea, dizziness and double vision. She took two 81mg ASA at time of symptom onset. Symptoms persisted and she came to [facility] ER. Upon arrival patient afebrile, mildly hypertensive, hemodynamically stable. Initial NIHSS=4 - partial gaze palsy, partial hemianopia, minor facial palsy and limb ataxia. Code Stroke was initiated and patient was administered IV tPA/Alteplase. Alteplase is still infusing. Patient is still reporting diplopia as well as a warm/tingly sensation of her right posterior head. Otherwise, no complaints. Specifically denies DAYL, chest pain, SOB, cough, abdominal pain, nausea, vomiting, diarrhea or constipation. No focal numbness/weakness. Patient was admitted to [facility] with similar symptoms on 02/06/21. She was found to have a small left posterior midbrain infarct. She was discharged home on ASA, Atorvastatin and instructed to quit smoking. Unfortunately she had not been taking her medications as prescribed and she continues to smoke appx 0.5 - 1 ppd. She notes an episode of transient dizziness and double vision that occurred 7 days ago which spontaneously resolved. ER Course: Alteplase 4mg + 36mg Principal Diagnosis Acute ischemic CVA Discharge Exam Constitutional WD/WN, vitals as above Eyes PERRL, conjunctivae normal, anicteric sclerae (no diplopia) EOM intact bilaterally; eyes not dysmorphic ENMT external ear and nose normal, oropharynx normal Neck trachea midline, no thyromegaly Respiratory normal respiratory effort, lungs clear to auscultation Cardiovascular RRR, no murmur, no edema Chest (Breasts) Chest: normal inspection of chest Gastrointestinal (Abdomen) normal bowel sounds, soft, nontender, no hepatosplenomegaly Musculoskeletal Extremities: extremities normal to inspection; no cyanosis and no clubbing Skin no rashes, warm and dry Neurologic PERRL, EOMI, accommodation nl, no face palsy, no dysarthria CN's II-XI intact bilaterally, moves all extremities and awake; no focal motor deficits Psychiatric A+Ox3, euthymic affect Lymphatic no lymphedema Discharge Data Allergies Allergy/AdvReac Type Severity Reaction Status Date / Time No Known Allergies Allergy Verified 03/23/21 13:15 Consultations 03/16/21 04:53 ED Decision to Admit Stat 03/16/21 06:36 Consult Manager Of Business Routine Consult Neurology Routine Ordered Studies 03/16/21 03:47 CT angio head w con Urgent CT angio neck with con Urgent CT head/brain wo con Urgent 03/16/21 06:36 MR brain wo/w con Routine 03/17/21 05:00 CT head/brain wo con Routine 03/17/21 12:06 US venous doppler LE BI Urgent Head CT 03/16/21 03:[address] DOSE: HISTORY: Left-sided facial droop. Stroke Like Symptoms TECHNIQUE: Multiaxial CT images of the head were performed without the use of intravenous contrast. Automated exposure control was utilized for this study. A dose lowering technique was utilized adhering to the principles of ALARA. Comparison: Head CT 02/06/2021. Findings: Mild mucosal thickening within the ethmoid air cells. The mastoid air cells are clear. The calvarium and skull base are intact. The ventricles and sulci are within normal limits. There is no mass, hematoma, midline shift, or acute infarct. Impression: No acute intracranial abnormality. ACT 112: Negative or not required by law. Electronically signed by: Dex Gusman M.D. 03/16/2021 7:12 AM Head CTA 03/16/21 03:47 CT angio head w con CLINICAL HISTORY: Stroke Like Symptoms TECHNIQUE: CT angiography of the head was performed in a dynamic helical fashion during intravenous administration of 104 cc of Optiray. MIP imaging was performed. A dose lowering technique was utilized adhering to the principles of ALARA. CT DOSE: COMPARISON STUDY: 02/06/2021 FINDINGS: There are no lesion suspicious for aneurysm. There are no major intracranial branch occlusions. The dural venous sinuses appear patent. IMPRESSION: Unremarkable CT angiography the brain. ACT 112: Negative or not required by law. Electronically signed by: James Santiago M.D. 03/16/2021 7:15 AM Neck CTA 03/16/21 03:47 NECK CTA HISTORY: Left-sided facial droop. Stroke Like Symptoms TECHNIQUE: Multiaxial CT images of the neck were performed following the intravenous administration of contrast to evaluate the major cervical vessels. Maximum intensity projection images were also obtained. All measurements were calculated based on NASCET criteria. A dose lowering technique was utilized adhering to the principles of ALARA. COMPARISON STUDY: Neck CTA 02/06/2021. FINDINGS: The aortic arch and proximal great vessels are widely patent. There is no significant stenosis, occlusion, or dissection identified within the bilateral common carotid, internal carotid, or vertebral arteries. Emphysema. IMPRESSION: No significant stenosis, occlusion, or dissection identified within the carotid or vertebral arteries. ACT 112: Negative or not required by law. Electronically signed by: Dex Gusman M.D. 03/16/2021 7:25 AM Brain MRI 03/16/21 06:36 MRI OF THE BRAIN WITHOUT AND WITH IV CONTRAST CLINICAL HISTORY: CVA COMPARISON STUDY: Noncontrast head CT dated 03/16/2021, MRI the brain no contrast dated 02/08/2021 TECHNIQUE: MRI of the brain was performed from the vertex to the skull base utilizing various T1 and T2 weighted sequences. Following the IV administration of 4.5 mL of Gadavist contrast, additional enhanced images were obtained. FINDINGS: Sagittal T1, axial diffusion, proton density and T2 weighted axial, coronal FLAIR, and pre and post axial T1-weighted images were acquired. These were supplemented with post gadolinium coronal T1 weighted images. No intra or extra-axial mass lesions are visualized. There is a 3 mm focus of restricted water diffusion within the base the right frontal lobe versus artifact. There is no evidence of ventricular dilatation. Proton density T2-weighted and FLAIR images reveal there is a stable 4 mm focus of increased T2 signal within the left thalamus, possibly affecting an old lacunar infarct. This remains unchanged from the preceding study. There are no abnormal flow voids. There is no evidence of pathologic enhancement. IMPRESSION: 1. No evidence of intracranial mass 2. No evidence of pathologic enhancement 3. Artifact versus tiny 3 mm acute/subacute infarct within the base the right frontal lobe. ACT 112: Negative or not required by law. Electronically signed by: James Santiago M.D. 03/16/2021 9:54 AM Chest X-Ray 03/16/21 08:57 SINGLE VIEW CHEST CLINICAL HISTORY: Strokelike symptoms. FINDINGS: An AP, portable, upright chest radiograph is obtained. No prior studies are available for comparison at the time of dictation. The examination is degraded by portable technique and patient rotation. The cardiomediastinal silhouette is unremarkable. Emphysematous change is noted. No airspace consolidation or large pleural effusion is identified. No pneumothorax is seen. The bony thorax is grossly intact. IMPRESSION: Emphysematous change with no acute cardiopulmonary abnormality. ACT 112: Negative or not required by law. Electronically signed by: Marco Helms M.D. 03/16/2021 9:[address] 03/17/21 05:00 CT OF THE HEAD WITHOUT CONTRAST CLINICAL HISTORY: f/u tPA administration COMPARISON STUDY: Head CT, CTA of the head and MRI of the brain March 16, 2021. CT DOSE: 537.48 mGy.cm TECHNIQUE: Helical axial images of the head were obtained without IV contrast. Automated exposure control was utilized for the study. A dose lowering technique was utilized adhering to the principles of ALARA. FINDINGS: No acute intracranial hemorrhage, midline shift or mass effect is present. The ventricular system is unremarkable. The basal cisterns are patent. No extra-axial collections are present. There are no findings to suggest acute dural sinus thrombosis or acute territorial infarct. No significant calvarial abnormalities are present. Visualized portions of the sinuses and mastoid air cells are clear. IMPRESSION: No acute intracranial findings. ACT 112: Negative or not required by law. Electronically signed by: [place] M.D. 03/17/2021 7:22 AM Venous Doppler Study 03/17/21 12:06 ULTRASOUND BILATERAL LOWER EXTREMITY VENOUS CLINICAL HISTORY: Stroke. Patent foramen ovale. Clinical concern for deep venous thrombosis with paradoxical embolus. COMPARISON STUDY: No priors. TECHNIQUE: Real-time, grayscale, and color Doppler sonography of the deep veins of the right and left lower extremity was performed from the inguinal crease to the calf. Compression and augmentation were utilized. FINDINGS: There is no sonographic evidence of deep venous thrombosis identified in the right or left lower extremity. The common femoral, superficial femoral, and popliteal veins are patent and normally compressible bilaterally. The greater saphenous vein and the profunda femoris vein at the junction with the common femoral vein are clear in both legs. The visualized calf veins are patent bilaterally. IMPRESSION: There is no sonographic evidence of deep venous thrombosis identified in the right or left lower extremity. ACT 112: Negative or not required by law. Electronically signed by: Marco Helms M.D. 03/17/2021 2:52 PM Hospital Course (1) CVA (cerebral vascular accident): 51yo right-handed female presenting with stroke-like symptoms. Last normal at 01:30 - she presents with diplopia, dizziness, nausea and vertical gaze palsy. 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 Symptoms upon admission are similar to prior. [place] [facility] [place] administered IV Alteplase in ER. Her symptoms completely resolved within the first 24 hours here MRI brain showed: artifact versus tiny 3 mm acute/subacute infarct in the base of the right frontal lobe -Admitted to MICU for post tPA care repeat head CT negative for hemorrhage and was then started on ASA 81mg daily Pt reports she was non-compliant with ASA and statin and continued to smoke after discharge for previous CVA ECHO from last admission reviewed with Cardiology who agreed there is definitely a PFO present Dopplers of LEs ordered and were negative for DVT Hypercoagulable workup ordered and pending at time of discharge-needs f/u after discharge with PCP -needs outpt Cardio f/u for SONIA and to be evaluated for closure of PFO-this was arranged through Cardiology office -HgB A1C on 02/07/21 = 5.3 -Lipid panel on 02/07/21 with Total Cholesterol = 147, LDL = 92, HDL = 36, TG = 96 -Continue Atorvastatin, ASA 81mg daily -had no Afib on tele throughout her stay-consider outpt acute care nurse cardiac monitoring--has f/u planned with Cardiology -Smoking cessation counseling given -PT/OT evaluation ordered-did well -Neurology Consultation appreciated -Manager Of Business consultation appreciated Dispo-stable for dc (2) PFO (patent foramen ovale): (3) Current smoker: (4) COPD with emphysema: started on Incruse by PULM here counseled on smoking cessation (5) DVT prophylaxis: Total Time Total Time Spent Total Time Spent (In Minutes): 40 min Total Time Includes: Examination of the Patient, Discharge Planning, Medication Reconciliation and Communication With Other Providers Discharge Plan Discharge Items Patient Disposition: Home - Self-Care Reason For Visit: CVA S/P tPA Discharge Diagnosis: Acute stroke Condition on Discharge: Good Activity: Resume your previous activity Non-emergency contact: Primary Care Provider, Beef Splitter and Neurologist Call non-emergency contact if: you have any medication questions and your symptoms worsen Follow-up/Referrals: Blake Bro MD [Physician] - (Follow up with the Neurologist within [address] SAMANIEGO OFFICE WILL CALL WITH A FOLLOW UP APT.) Chuck Feldman MD [Physician] - 03/23/21 1:00 pm (Dr. Feldman's office should be contacting you with your appointment date and time to discuss getting a SONIA for your PFO.) PCP,NO [Primary Care Provider] - Diet: Heart Healthy Addtl Attending Provider Instructions: You were admitted with another stroke and received "clot buster" medication. You have a small hole in your heart called a patent foramen ovale (PFO) that puts you at increased risk for stroke. You need to have a Transesophageal echocardiogram (SONIA) to further evaluate this whole in preparation for possible surgical procedure to close this hole to prevent future strokes. Please follow up with the Beef Splitter's office to get this set up as an outpatient. Also, it is extremely important that you QUIT SMOKING as we discussed. This will significantly reduce your chances of having a stroke. Please take the aspirin and atorvastatin once daily, every day to prevent stroke. You can crush the medication sand put them in applesauce or yogurt if you need to. Blood work was drawn to check you for blood disorders that cause thickened blood. These results will take about one week to return with results. The Neurologist or your primary care doctor can follow up on these results also. Risk Factors for Stroke: You can reduce your chances of stroke by working with your medical provider to adopt a healthy lifestyle. Some specific ways to lower your chance of stroke are: * If you are a smoker, now is the time to stop smoking cigarettes * If you are diabetic, improve the control of your blood sugars * Avoid excessive amounts of alcohol * Control high blood pressure * Lose weight if you are overweight * Be sure to lead an active lifestyle * Eat a healthy diet low in salt, cholesterol and fat You should know about other risk factors for stroke that you are unable to control. These include: * Age 55 years or older * Male gender * Certain racial groups: , or / * Family History of Stroke, Mini stroke or Heart Attack * Sickle Cell Disease Follow Up: It is important for you to keep your follow up appointments with your medical provider. Who to Call and When: Medical Emergencies: Call 911 immediately if you experience any of the following warning signs and symptoms of Stroke: * Sudden numbness or weakness of the face, arm or leg, especially on one side of the body * Sudden confusion, trouble speaking or understanding * Sudden trouble seeing in one or both eyes * Sudden trouble walking, dizziness, loss of balance or coordination * Sudden severe headache with no cause Do not delay calling 911 if you experience any warning signs or symptoms of a stroke. Delay in seeking medical attention may affect what treatments can be given to you. . Pending Studies at Discharge: Yes Stand-Alone Forms: Medications to Prevent Stroke, My [facility] Footmarks, Smoking Cessation Medications and DC Order Prescriptions: New Incruse Ellipta 62.5 mcg/actuation Blister With Device 1 inh inhalation DAILY Qty: 30 RF: 0 Continued atorvastatin 40 mg Tablet 40 mg PO QAM 30 Days Qty: 30 RF: 2 aspirin 81 mg Tablet,Delayed Release (Dr/Ec) 81 mg PO DAILY 30 Days Qty: 30 RF: 2 Discharge Orders: Discharge Order (Routine); Ordered 03/17/21 Ordered By: Nataliia Nair/Other Patient Handouts: Quit-Smoking Tools Help for ..., Preparing Your Home After Stroke, Stroke: Self-Care, Discharge Instructions for Stroke, Risk Factors for Stroke, Umeclidinium inhalation powder, Nicotine skin patches Admission Data Admit Date/Time: 03/16/21 05:22 Attending Provider: Nataliia Kilgore Admit Provider: Yaima Sutherland Primary Care Provider: PCP,NO Other Providers: Adri Robles ; Blake Bro ; Yaima Sutherland Other Interventions: Discharge Summary Assessment (RN) Last Done: 03/17/21 17:17 Coding Level of Care Code D/C Day Management >30 mins Diagnoses CVA (cerebral vascular accident) I63.9 CVA mechanism: unspecified PFO (patent foramen ovale) Q21.1 Current smoker F17.200 COPD with emphysema J43.9 DVT prophylaxis Z29.9
--- NOTE | 2021-03-17 17:07 | Pharmacy Report ---
Pharmacist Stroke Counseling - Date of Service March 17, 2021 - Scope: Pharmacy has been consulted to provide medication discharge counseling for this patient admitted with [ischemic stroke] [hemorrhagic stroke] [transient ischemic attack] as per the Pharmacist Discharge Counseling for Stroke Patients Protoc . - Medications on Discharge: New Rx's Medication Instructions Recorded aspirin 81 mg PO DAILY 30 Days #30 tab 02/08/21 atorvastatin 40 mg PO QAM 30 Days #30 tab 02/08/21 nicotine 1 patch TRANSDERMAL DAILY #14 ea 03/17/21 umeclidinium [Incruse Ellipta] 1 inh INHALATION DAILY #30 ea 03/17/21 - Action: The above medications, specifically ones for stroke treatment/prophylaxis, have been reviewed in detail with the patient and/or patient in store representative(s) prior to discharge. This includes indication, common adverse reactions, drug interactions, and medication administration. Medication counseling has been employed using the teach-back method to ensure understanding. - Outcome: The patient and/or patient in store representative(s) have demonstrated understanding of the medications. Additional comments: Spoke over the phone with patient today. Reviewed new medications to prevent stroke including Aspirin and Atorvastatin. Discussed why they are being used and common side effects in great detail. Reviewed how to use the medications, what to do if doses are missed, common drug interactions, common side effects, what to watch out for while using the medications, and how to store the medications. Pt verbalized understanding and restated the davis points of each medication. Thank you for allowing pharmacy to be involved in the care of this patient. Please call [phone] with any additional questions
[2021-03-22 22:32] LABS: B2 Glycoprotein IgG <9 SGU (<=20); B2 Glycoprotein IgM <9 SMU (<=20); Protein S Functional(Activity) 90 % (60-140)
[2021-03-23 04:58] LABS: Anti Cardiolipin Ab IgG <14 GPL; Anti Cardiolipin Ab IgM <12 MPL; Anti-Thrombin III Activity 100 % normal (80-135); PTT LA Screen 35 sec (<=40)
[2021-03-25 15:37] LABS: Factor 5 Mutation NEGATIVE
== END 2021-03-17 17:50 | disposition home or self-care (01) ==
LOC: ED 03:21 → INTOOBSV 05:22 → SUATTDRO 05:22 → 1E 05:22

== ENCOUNTER 2021-08-14 13:04 | Inpatient (IN) ==
[2021-08-14 13:35] LABS: Basophils # (auto) 0.06 K/uL (0-0.2); Basophils % (auto) 0.8 %; Eosinophils % (auto) 4.2 %; Hematocrit (blood only) 45.6 % (37-47); Hemoglobin 15.7 g/dL (12.0-16.0); Immature Granulocytes # (auto) 0.01 K/uL (0.00-0.02); Immature Granulocytes % (auto) 0.1 %; Lymphocytes # (auto) 2.37 K/uL (1.2-3.4); Lymphocytes % (auto) 33.5 %; Mean Corpuscular Hemoglobin 32.3 pg (25-34); Mean Corpuscular Hgb Conc 34.4 g/dL (32-36); Mean Corpuscular Volume 93.8 fL (80-100); Mean Platelet Volume 8.6 fL (7.4-10.4); Monocytes # (auto) 0.65 K/uL (0.11-0.59); Monocytes % (auto) 9.2 %; Neutrophils # (auto) 3.69 K/uL (1.4-6.5); Neutrophils % (auto) 52.2 %; Platelet Count 247 K/uL (130-400); RDW Coefficient of Variation 13.1 % (11.5-14.5); RDW Standard Deviation 44.7 fL (36.4-46.3); Red Blood Count 4.86 M/uL (4.2-5.4); White Blood Count 7.08 K/uL (4.8-10.8)
--- NOTE | 2021-08-14 13:42 | Emergency Department Note ---
Impression & Plan COVID-19, Encounter for smoking cessation counseling, Diplopia, Facial droop ED Provider Note NAME: ABHINAV MCKEON AGE: 51 SEX: F : 1970 ARRIVES VIA: Walk-In INFORMANT: Patient, ED PROVIDER(S): Ronnell Huang MD Chief Complaint: Fatigue, diplopia, gait instability HPI: Patient does present with the above symptoms which she stated began earlier today. The patient states that she has had 2 prior history of stroke and similar symptoms and this felt very similar to prior. Patient is not been compliant with her aspirin. Patient denies any fevers chills chest pains or shortness of breath. Patient denies any nausea vomiting. Patient does have diffuse weakness but no focal weakness or numbness. Patient has had some intermittent headache which is frontal and nonradiating. The patient denies any recent travel. Patient not vaccinated for Covid. Patient is a smoker. Patient not seen her neurologist in some time. Patient did take 4 aspirin prior to arrival. ROS: See HPI for pertinent positives and negatives. A total of 10 systems were reviewed and otherwise negative. Past medical history: See below Surgical history: See below Social history: See below Physical Exam: GENERAL: NAD, wearing a mask, non-toxic. EYE EXAM: Normal conjunctiva. PERRL, no anisocoria. Slight slow reactivity of the left eye compared to the right with extraocular movements. Most prominent when looking right and down. NECK: Supple, no nuchal rigidity, no adenopathy, non-tender. No signs of meningismus. LUNGS: Clear to auscultation. Normal chest wall mechanics. HEART: NSR, no MRG. ABDOMEN: Abdomen soft, non-tender, normo-active bowel sounds, no masses, no rebound or guarding. BACK: No CVA TTP. SKIN: No rashes and no bruising. UPPER EXTREMITIES: Upper extremities are grossly normal. LOWER EXTREMITIES: Grossly normal, no edema. NEURO EXAM: A&O x3, cranial nerves II-XII grossly intact, normal speech, moves all 4 extremities on command w/o issue. Good finger to nose, no drift, no sensory deficits. Differential diagnoses: Infection, dehydration, metabolic abnormality, hypo/hyperglycemia, electrolyte disturbance, anemia, hypoxia, cardiac sources, intracerebral event, toxicologic, neurologic, as well as other pathologies. Course: Patient was seen and evaluated the bedside. Full history physical exam was performed. EKG interpreted by me Sinus rhythm, rate of 64, normal intervals, normal axis, no ST changes or T WI. Imaging Studies: See Below Cardiac monitoring: An order was placed for continuous cardiac monitoring. The monitor shows a rate of 75 with sinus rhythm. MDM: Patient did present for symptoms consistent with her prior stroke. The patient does not have any obvious palsy of the left eye but seems slightly more slow to respond and the patient does have difficulty with focus. Patient does complain of diplopia which is top and bottom. Patient did have bladder completed along CT head CT angios head neck. CT head and CT angiography is are negative. The patient is positive for Covid. The patient was initially hypoglycemic and was given dextrose. Repeat was greater than 200 but shortly thereafter the patient's repeat dextrose was low again. The patient was ordered additional amp of dextrose and was given food. Patient has normal white count H&H platelet co unt kidney function unremarkable very mild hyper. Magnesium is slightly elevated 2.5. Troponin not detectable. I did inform the patient of her positive Covid. The patient did develop mild right-sided facial droop. I did speak with the on- call neurologist Dr. Limon given the patient's acute change in symptoms but without any other signs. Patient does have negative CT head and CT angiography of the head neck. No TPA at this time. This was after discussion with the neurologist. Patient did have the MRI completed. The patient's MRI was negative. I did speak with the on-call hospitalist Dr. Jarrett and the patient was admitted to the medicine service. Past Med/Surg History Medical History Anxiety no meds COPD with emphysema Current smoker CVA (cerebral vascular accident) x2--02/06/2021 and 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 Bro Irregular heart beat follows with Dr. Feldman PFO (patent foramen ovale) Surgical History History of bilateral tubal ligation History of laparoscopy History of transesophageal echocardiography (SONIA) (~04/02/21) S/P cataract surgery bilt Family History Mother Heart disease Hypertension Father , aged 34 of a motor vehicle accident No problems noted. Brother Family history of diabetes mellitus Grandmother (Paternal) Family history of diabetes mellitus Family hx of colon cancer Other Coronary heart disease Diabetes No family history of adverse response to anesthesia Social History Smoking Status: Never smoker Tobacco Type: Cigarettes Cigarettes Per Day: 12; Second Hand Exposure: Yes; Hx Alcohol Use: Yes Alcohol Intake Frequency Comment: 1-2 drinks per month Hx Substance Use: No Preferred Language: [place]ican Communication Ability: Effective Lockstitch Shoulder Joiner Required: No Beliefs That Will Affect Care: None Current Living Situation: Spouse Current Living Situation Comment: Lives with and son 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: 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 Feels Safe at Home: Yes Assistive Devices: None Allergies Allergies Allergy/AdvReac Type Severity Reaction Status Date / Time No Known Allergies Allergy Verified 08/14/21 14:43 Home Meds Home Medications Medication Instructions Recorded Confirmed aspirin 81 mg tablet,delayed 81 mg PO QPM 04/03/21 08/14/21 release atorvastatin 40 mg tablet 40 mg PO QPM 04/03/21 08/14/21 pediatric multivitamin no.49 2 tab PO QPM 04/03/21 08/14/21 (Flintstones Gummies) Previous Rx's Medication Instructions Recorded ondansetron HCl 4 mg tablet 4 mg PO TID PRN #30 tab 05/01/21 (Zofran) Results & Data (ED) Vital Signs Vital Signs - 24 hr 08/14/21 13:08 08/14/21 13:18 08/14/21 13:30 Temperature 36.8 C Temperature Source Temporal Artery Scan Pulse Rate 87 79 76 Pulse Rate [Right Finger] Pulse Rate from SpO2 Sensor 79 Pulse Rhythm [Right Finger] Pulse Strength [Right Finger] Respiratory Rate 18 23 23 Respiratory Effort / Characteristics Non-Labored Respiratory Depth Normal Respiratory Pattern Blood Pressure 174/94 H 158/129 H 177/112 H Blood Pressure [Left Arm] Blood Pressure Mean 120 138 133 Blood Pressure Mean [Left Arm] Blood Pressure Position [Left Arm] Pulse Oximetry 98 96 95 Oxygen Delivery Method Room Air Room Air Room Air Sepsis Recent Fever Within 48 Hours No Sepsis New/Unexplained Change in Mental Status No Sepsis Action Taken by Nursing No Action Required 08/14/21 13:32 08/14/21 13:50 08/14/21 14:00 Temperature Temperature Source Pulse Rate 67 67 Pulse Rate [Right Finger] Pulse Rate from SpO2 Sensor 66 67 Pulse Rhythm [Right Finger] Pulse Strength [Right Finger] Respiratory Rate 22 20 Respiratory Effort / Characteristics Respiratory Depth Respiratory Pattern Blood Pressure 157/110 H 163/100 H Blood Pressure [Left Arm] Blood Pressure Mean 125 121 Blood Pressure Mean [Left Arm] Blood Pressure Position [Left Arm] Pulse Oximetry 96 96 100 Oxygen Delivery Method Room Air Room Air Room Air Sepsis Recent Fever Within 48 Hours Sepsis New/Unexplained Change in Mental Status Sepsis Action Taken by Nursing 08/14/21 14:21 08/14/21 14:40 08/14/21 15:03 Temperature Temperature Source Pulse Rate 81 Pulse Rate [Right Finger] 63 70 Pulse Rate from SpO2 Sensor Pulse Rhythm [Right Finger] Regular Pulse Strength [Right Finger] Normal Respiratory Rate 22 17 16 Respiratory Effort / Characteristics Non-Labored Spontaneous Non-Labored Respiratory Depth Normal Normal Respiratory Pattern Regular Blood Pressure 197/115 H Blood Pressure [Left Arm] 167/95 H 170/106 H Blood Pressure Mean 142 Blood Pressure Mean [Left Arm] 119 127 Blood Pressure Position [Left Arm] Lying Pulse Oximetry 95 99 98 Oxygen Delivery Method Room Air Room Air Room Air Sepsis Recent Fever Within 48 Hours Sepsis New/Unexplained Change in Mental Status Sepsis Action Taken by Nursing 08/14/21 15:37 08/14/21 16:01 08/14/21 17:25 Temperature Temperature Source Pulse Rate Pulse Rate [Right Finger] 81 73 62 Pulse Rate from SpO2 Sensor Pulse Rhythm [Right Finger] Pulse Strength [Right Finger] Respiratory Rate 20 19 19 Respiratory Effort / Characteristics Non-Labored Non-Labored Non-Labored Respiratory Depth Normal Normal Normal Respiratory Pattern Blood Pressure Blood Pressure [Left Arm] 156/86 H 165/95 H 154/84 H Blood Pressure Mean Blood Pressure Mean [Left Arm] 109 118 107 Blood Pressure Position [Left Arm] Pulse Oximetry 92 96 97 Oxygen Delivery Method Room Air Room Air Room Air Sepsis Recent Fever Within 48 Hours Sepsis New/Unexplained Change in Mental Status Sepsis Action Taken by Nursing 08/14/21 17:34 08/14/21 18:01 08/14/21 18:30 Temperature Temperature Source Pulse Rate 63 Pulse Rate [Right Finger] 66 59 L 61 Pulse Rate from SpO2 Sensor 62 Pulse Rhythm [Right Finger] Pulse Strength [Right Finger] Respiratory Rate 16 16 17 Respiratory Effort / Characteristics Non-Labored Non-Labored Non-Labored Respiratory Depth Normal Normal Normal Respiratory Pattern Blood Pressure 130/81 Blood Pressure [Left Arm] 121/75 133/80 130/81 Blood Pressure Mean 97 Blood Pressure Mean [Left Arm] 90 97 97 Blood Pressure Position [Left Arm] Pulse Oximetry 96 97 96 Oxygen Delivery Method Room Air Room Air Room Air Sepsis Recent Fever Within 48 Hours Sepsis New/Unexplained Change in Mental Status Sepsis Action Taken by Nursing 08/14/21 19:00 08/14/21 19:30 Temperature Temperature Source Pulse Rate 64 64 Pulse Rate [Right Finger] Pulse Rate from SpO2 Sensor 65 63 Pulse Rhythm [Right Finger] Pulse Strength [Right Finger] Respiratory Rate 18 19 Respiratory Effort / Characteristics Respiratory Depth Respiratory Pattern Blood Pressure 136/81 150/95 H Blood Pressure [Left Arm] Blood Pressure Mean 99 113 Blood Pressure Mean [Left Arm] Blood Pressure Position [Left Arm] Pulse Oximetry 97 98 Oxygen Delivery Method Sepsis Recent Fever Within 48 Hours Sepsis New/Unexplained Change in Mental Status Sepsis Action Taken by Snf Medications Current Medication List: was personally reviewed by me Laboratory Data Attestation: I reviewed the patient's lab results. Result diagrams: 08/14/21 13:23 08/14/21 13:23 Lab Results 08/14/21 08/14/21 08/14/21 Range/Units 13:23 13:23 13:23 WBC 7.08 (4.8-10.8) K/uL RBC 4.86 (4.2-5.4) M/uL Hgb 15.7 (12.0-16.0) g/dL Hct 45.6 (37-47) % MCV 93.8 (80-100) fL MCH 32.3 (25-34) pg MCHC 34.4 (32-36) g/dL RDW Std Deviation 44.7 (36.4-46.3) fL RDW Coeff of Kera 13.1 (11.5-14.5) % Plt Count 247 (130-400) K/uL MPV 8.6 (7.4-10.4) fL Immature Gran % (Auto) 0.1 % Neut % (Auto) 52.2 % Lymph % (Auto) 33.5 % [place] % (Auto) 9.2 % Eos % (Auto) 4.2 % Baso % (Auto) 0.8 % Neut # (Auto) 3.69 (1.4-6.5) K/uL Lymph # (Auto) 2.37 (1.2-3.4) K/uL [place] # (Auto) 0.65 H (0.11-0.59) K/uL Eos # (Auto) 0.30 (0-0.5) K/uL Baso # (Auto) 0.06 (0-0.2) K/uL Immature Gran # (Auto) 0.01 (0.00-0.02) K/uL PT 10.0 (9.0-12.0) Seconds INR 1.0 (0.9-1.1) APTT 22.8 (21.0-31.0) Seconds PTT Ratio 0.9 Sodium 139 (136-145) mmol/L Potassium 3.3 L (3.5-5.1) mmol/L Chloride 107 (98-107) mmol/L Carbon Dioxide 26 (21-32) mmol/L Anion Gap 6.0 (3-11) BUN 8 (7-18) mg/dl Creatinine 0.86 (0.6-1.2) mg/dl Est Cr Clr Drug Dosing 54.0 ml/min Est GFR ( Amer) 91.9 ml/min Est GFR (Non-Af Amer) 79.3 ml/min BUN/Creatinine Ratio 9.7 L (10-20) Glucose 50 L* (70-99) mg/dl POC Glucose (70-99) mg/dl Calcium 9.0 (8.5-10.1) mg/dl Magnesium 2.5 H (1.8-2.4) mg/dl Total Bilirubin 0.5 (0.2-1) mg/dl AST 8 L (15-37) U/L ALT 13 (12-78) U/L Alkaline Phosphatase 69 (45-117) U/L Troponin I < 0.015 (0-0.045) ng/ml Total Protein 7.5 (6.4-8.2) gm/dl Albumin 3.7 (3.4-5.0) gm/dl Globulin 3.8 (2.5-4.0) gm/dl Albumin/Globulin Ratio 1.0 (0.9-2) COVID-19 Eval Order SARS-CoV-2 (PCR) (Negative) 08/14/21 08/14/21 08/14/21 Range/Units 13:55 13:55 14:43 WBC (4.8-10.8) K/uL RBC (4.2-5.4) M/uL Hgb (12.0-16.0) g/dL Hct (37-47) % MCV (80-100) fL MCH (25-34) pg MCHC (32-36) g/dL RDW Std Deviation (36.4-46.3) fL RDW Coeff of Kera (11.5-14.5) % Plt Count (130-400) K/uL MPV (7.4-10.4) fL Immature Gran % (Auto) % Neut % (Auto) % Lymph % (Auto) % [place] % (Auto) % Eos % (Auto) % Baso % (Auto) % Neut # (Auto) (1.4-6.5) K/uL Lymph # (Auto) (1.2-3.4) K/uL [place] # (Auto) (0.11-0.59) K/uL Eos # (Auto) (0-0.5) K/uL Baso # (Auto) (0-0.2) K/uL Immature Gran # (Auto) (0.00-0.02) K/uL PT (9.0-12.0) Seconds INR (0.9-1.1) APTT (21.0-31.0) Seconds PTT Ratio Sodium (136-145) mmol/L Potassium (3.5-5.1) mmol/L Chloride (98-107) mmol/L Carbon Dioxide (21-32) mmol/L Anion Gap (3-11) BUN (7-18) mg/dl Creatinine (0.6-1.2) mg/dl Est Cr Clr Drug Dosing ml/min Est GFR ( Amer) ml/min Est GFR (Non-Af Amer) ml/min BUN/Creatinine Ratio (10-20) Glucose (70-99) mg/dl POC Glucose 215 H (70-99) mg/dl Calcium (8.5-10.1) mg/dl Magnesium (1.8-2.4) mg/dl Total Bilirubin (0.2-1) mg/dl AST (15-37) U/L ALT (12-78) U/L Alkaline Phosphatase (45-117) U/L Troponin I (0-0.045) ng/ml Total Protein (6.4-8.2) gm/dl Albumin (3.4-5.0) gm/dl Globulin (2.5-4.0) gm/dl Albumin/Globulin Ratio (0.9-2) COVID-19 Eval Order Covid19 at [facility] SARS-CoV-2 (PCR) POSITIVE A* (Negative) 08/14/21 08/14/21 08/14/21 Range/Units 15:29 15:56 17:23 WBC (4.8-10.8) K/uL RBC (4.2-5.4) M/uL Hgb (12.0-16.0) g/dL Hct (37-47) % MCV (80-100) fL MCH (25-34) pg MCHC (32-36) g/dL RDW Std Deviation (36.4-46.3) fL RDW Coeff of Kera (11.5-14.5) % Plt Count (130-400) K/uL MPV (7.4-10.4) fL Immature Gran % (Auto) % Neut % (Auto) % Lymph % (Auto) % [place] % (Auto) % Eos % (Auto) % Baso % (Auto) % Neut # (Auto) (1.4-6.5) K/uL Lymph # (Auto) (1.2-3.4) K/uL [place] # (Auto) (0.11-0.59) K/uL Eos # (Auto) (0-0.5) K/uL Baso # (Auto) (0-0.2) K/uL Immature Gran # (Auto) (0.00-0.02) K/uL PT (9.0-12.0) Seconds INR (0.9-1.1) APTT (21.0-31.0) Seconds PTT Ratio Sodium (136-145) mmol/L Potassium (3.5-5.1) mmol/L Chloride (98-107) mmol/L Carbon Dioxide (21-32) mmol/L Anion Gap (3-11) BUN (7-18) mg/dl Creatinine (0.6-1.2) mg/dl Est Cr Clr Drug Dosing ml/min Est GFR ( Amer) ml/min Est GFR (Non-Af Amer) ml/min BUN/Creatinine Ratio (10-20) Glucose (70-99) mg/dl POC Glucose 60 L* 241 H 102 H (70-99) mg/dl Calcium (8.5-10.1) mg/dl Magnesium (1.8-2.4) mg/dl Total Bilirubin (0.2-1) mg/dl AST (15-37) U/L ALT (12-78) U/L Alkaline Phosphatase (45-117) U/L Troponin I (0-0.045) ng/ml Total Protein (6.4-8.2) gm/dl Albumin (3.4-5.0) gm/dl Globulin (2.5-4.0) gm/dl Albumin/Globulin Ratio (0.9-2) COVID-19 Eval Order SARS-CoV-2 (PCR) (Negative) 08/14/21 Range/Units 18:41 WBC (4.8-10.8) K/uL RBC (4.2-5.4) M/uL Hgb (12.0-16.0) g/dL Hct (37-47) % MCV (80-100) fL MCH (25-34) pg MCHC (32-36) g/dL RDW Std Deviation (36.4-46.3) fL RDW Coeff of Kera (11.5-14.5) % Plt Count (130-400) K/uL MPV (7.4-10.4) fL Immature Gran % (Auto) % Neut % (Auto) % Lymph % (Auto) % [place] % (Auto) % Eos % (Auto) % Baso % (Auto) % Neut # (Auto) (1.4-6.5) K/uL Lymph # (Auto) (1.2-3.4) K/uL [place] # (Auto) (0.11-0.59) K/uL Eos # (Auto) (0-0.5) K/uL Baso # (Auto) (0-0.2) K/uL Immature Gran # (Auto) (0.00-0.02) K/uL PT (9.0-12.0) Seconds INR (0.9-1.1) APTT (21.0-31.0) Seconds PTT Ratio Sodium (136-145) mmol/L Potassium (3.5-5.1) mmol/L Chloride (98-107) mmol/L Carbon Dioxide (21-32) mmol/L Anion Gap (3-11) BUN (7-18) mg/dl Creatinine (0.6-1.2) mg/dl Est Cr Clr Drug Dosing ml/min Est GFR ( Amer) ml/min Est GFR (Non-Af Amer) ml/min BUN/Creatinine Ratio (10-20) Glucose (70-99) mg/dl POC Glucose 133 H (70-99) mg/dl Calcium (8.5-10.1) mg/dl Magnesium (1.8-2.4) mg/dl Total Bilirubin (0.2-1) mg/dl AST (15-37) U/L ALT (12-78) U/L Alkaline Phosphatase (45-117) U/L Troponin I (0-0.045) ng/ml Total Protein (6.4-8.2) gm/dl Albumin (3.4-5.0) gm/dl Globulin (2.5-4.0) gm/dl Albumin/Globulin Ratio (0.9-2) COVID-19 Eval Order SARS-CoV-2 (PCR) (Negative) Administered Medications Discontinued Medications Aspirin (Aspirin Chew 324 Mg) 324 mg PO NOW STA Stop: 08/14/21 15:02 Last Admin: 08/14/21 15:21 Dose: Not Given Documented by: [id number] Dextrose (Dextrose 50% 50 Ml Syringe) 50 ml IV NOW ONE Stop: 08/14/21 14:14 Last Admin: 08/14/21 14:16 Dose: 50 ml Documented by: [id number] Dextrose (Dextrose 50% 50 Ml Syringe) 50 ml IV NOW ONE Stop: 08/14/21 15:41 Last Admin: 08/14/21 15:42 Dose: 50 ml Documented by: [id number] Ioversol (Optiray 320 125ml) 120 ml IV ONCE ONE Stop: 08/14/21 14:35 Last Admin: 08/14/21 14:34 Dose: 120 ml Documented by: [id number] Imaging Data Radiologist's Impression: Head CT 08/14/21 13:[address] OF THE BRAIN; CT ANGIOGRAM OF THE BRAIN; CT ANGIOGRAM OF THE NECK CLINICAL HISTORY: Strokelike symptoms. COMPARISON STUDY: CT angiogram of the head and neck dated 03/16/2021. TECHNIQUE: Unenhanced axial CT scan of the brain is performed. Subsequently, fo llowing the IV administration of 120 of Optiray 320, CT angiogram of the head and neck was performed from the aortic arch to the vertex. Images are reviewed in the axial, sagittal, and coronal planes. 3-D MIPS images are created and assessed. IV contrast was administered without complication. All measurements were calculated based on NASCET criteria. A dose lowering technique was utilized adhering to the principles of ALARA. CT DOSE: 863.30 mGy.cm FINDINGS: Brain parenchyma: A small chronic lacunar infarct is noted in the left thalamus. There is no hemorrhage, mass effect, or evidence of acute territorial ischemia by CT criteria. There is no evidence of enhancing mass lesion on the angiogram phase images. The ventricles, sulci, and cisterns are normal in configuration. Linder-white matter differentiation is preserved. No extra-axial fluid collection is seen. Thoracic aorta: Visualized portions of the thoracic aorta are normal in caliber. The aortic arch demonstrates standard 3-vessel anatomy. Right carotid arterial system: The right common carotid artery is widely patent, as are the right internal and external carotid arteries. Left carotid arterial system: The left common carotid artery is widely patent, as are the left internal and external carotid arteries. Vertebral arteries: The vertebral arteries are widely patent bilaterally and codominant. Subclavian arteries: Widely patent bilaterally. Intracranial vasculature: There is a large right posterior communicating artery. The internal carotid arteries are patent at the skull base, as are the anterior and middle cerebral arteries bilaterally. The vertebrobasilar system and posterior cerebral arteries are widely patent. The vertebral arteries are codominant. There is no aneurysm, high-grade stenosis, or focal vessel cut off seen throughout the intracranial circulation. Jugular veins: Patent bilaterally. Dural sinuses: Patent. Lung apices: Emphysematous change is noted. Upper lobe lung parenchyma is otherw ise clear as visualized. Soft tissues: The visualized pharyngeal soft tissues are normal in appearance noting angiographic phase technique. The oropharyngeal airway appears widely patent. The salivary and thyroid glands are normal in appearance. No cervical lymphadenopathy is seen. Skeletal structures: The calvarium appears intact. The cervical spine is within normal limits. Orbits: The bony orbits are intact. Orbital contents are normal as visualized note that bilateral ocular lens implants. Sinuses and mastoids: There is trace mucosal thickening within the maxillary antra. A 1.4 cm retention cyst is seen on the right. Trace mucosal thickening is also seen within the right sphenoid sinus and ethmoid sinuses. The mastoid air cells are well pneumatized. IMPRESSION: 1. There is no hemorrhage, mass effect, or evidence of acute territorial ischemia by CT criteria. 2. Unremarkable CT angiogram of the brain. No change from 03/16/2021. 3. Unremarkable CT angiogram of the neck. No change from 03/16/2021. 4. Emphysema. ACT 112: Negative or not required by law. Electronically signed by: Marco Helms M.D. 08/14/2021 2:53 PM Head CTA 08/14/21 13:[address] OF THE BRAIN; CT ANGIOGRAM OF THE BRAIN; CT ANGIOGRAM OF THE NECK CLINICAL HISTORY: Strokelike symptoms. COMPARISON STUDY: CT angiogram of the head and neck dated 03/16/2021. TECHNIQUE: Unenhanced axial CT scan of the brain is performed. Subsequently, following the IV administration of 120 of Optiray 320, CT angiogram of the head and neck was performed from the aortic arch to the vertex. Images are reviewed in the axial, sagittal, and coronal planes. 3-D MIPS images are created and assessed. IV contrast was administered without complication. All measurements were calculated based on NASCET criteria. A dose lowering technique was utilized adhering to the principles of ALARA. CT DOSE: 863.30 mGy.cm FINDINGS: Brain parenchyma: A small chronic lacunar infarct is noted in the left thalamus. There is no hemorrhage, mass effect, or evidence of acute territorial ischemia by CT criteria. There is no evidence of enhancing mass lesion on the angiogram phase images. The ventricles, sulci, and cisterns are normal in configuration. Linder-white matter differentiation is preserved. No extra-axial fluid collection is seen. Thoracic aorta: Visualized portions of the thoracic aorta are normal in caliber. The aortic arch demonstrates standard 3-vessel anatomy. Right carotid arterial system: The right common carotid artery is widely patent, as are the right internal and external carotid arteries. Left carotid arterial system: The left common carotid artery is widely patent, as are the left internal and external carotid arteries. Vertebral arteries: The vertebral arteries are widely patent bilaterally and codominant. Subclavian arteries: Widely patent bilaterally. Intracranial vasculature: There is a large right posterior communicating artery. The internal carotid arteries are patent at the skull base, as are the anterior and middle cerebral arteries bilaterally. The vertebrobasilar system and posterior cerebral arteries are widely patent. The vertebral arteries are codominant. There is no aneurysm, high-grade stenosis, or focal vessel cut off seen throughout the intracranial circulation. Jugular veins: Patent bilaterally. Dural sinuses: Patent. Lung apices: Emphysematous change is noted. Upper lobe lung parenchyma is otherwise clear as visualized. Soft tissues: The visualized pharyngeal soft tissues are normal in appearance noting angiographic phase technique. The oropharyngeal airway appears widely patent. The salivary and thyroid glands are normal in appearance. No cervical lymphadenopathy is seen. Skeletal structures: The calvarium appears intact. The cervical spine is within normal limits. Orbits: The bony orbits are intact. Orbital contents are normal as visualized note that bilateral ocular lens implants. Sinuses and mastoids: There is trace mucosal thickening within the maxillary antra. A 1.4 cm retention cyst is seen on the right. Trace mucosal thickening is also seen within the right sphenoid sinus and ethmoid sinuses. The mastoid air cells are well pneumatized. IMPRESSION: 1. There is no hemorrhage, mass effect, or evidence of acute territorial ischemia by CT criteria. 2. Unremarkable CT angiogram of the brain. No change from 03/16/2021. 3. Unremarkable CT angiogram of the neck. No change from 03/16/2021. 4. Emphysema. ACT 112: Negative or not required by law. Electronically signed by: Marco Helms M.D. 08/14/2021 2:53 PM Neck CTA 08/14/21 13:[address] OF THE BRAIN; CT ANGIOGRAM OF THE BRAIN; CT ANGIOGRAM OF THE NECK CLINICAL HISTORY: Strokelike symptoms. COMPARISON STUDY: CT angiogram of the head and neck dated 03/16/2021. TECHNIQUE: Unenhanced axial CT scan of the brain is performed. Subsequently, following the IV administration of 120 of Optiray 320, CT angiogram of the head and neck was performed from the aortic arch to the vertex. Images are reviewed in the axial, sagittal, and coronal planes. 3-D MIPS images are created and assessed. IV contrast was administered without complication. All measurements were calculated based on NASCET criteria. A dose lowering technique was utilized adhering to the principles of ALARA. CT DOSE: 863.30 mGy.cm FINDINGS: Brain parenchyma: A small chronic lacunar infarct is noted in the left thalamus. There is no hemorrhage, mass effect, or evidence of acute territorial ischemia by CT criteria. There is no evidence of enhancing mass lesion on the angiogram phase images. The ventricles, sulci, and cisterns are normal in configuration. Linder-white matter differentiation is preserved. No extra-axial fluid collection is seen. Thoracic aorta: Visualized portions of the thoracic aorta are normal in caliber. The aortic arch demonstrates standard 3-vessel anatomy. Right carotid arterial system: The right common carotid artery is widely patent, as are the right internal and external carotid arteries. Left carotid arterial system: The left common carotid artery is widely patent, as are the left internal and external carotid arteries. Vertebral arteries: The vertebral arteries are widely patent bilaterally and codominant. Subclavian arteries: Widely patent bilaterally. Intracranial vasculature: There is a large right posterior communicating artery. The internal carotid arteries are patent at the skull base, as are the anterior and middle cerebral arteries bilaterally. The vertebrobasilar system and posterior cerebral arteries are widely patent. The vertebral arteries are codominant. There is no aneurysm, high-grade stenosis, or focal vessel cut off seen throughout the intracranial circulation. Jugular veins: Patent bilaterally. Dural sinuses: Patent. Lung apices: Emphysematous change is noted. Upper lobe lung parenchyma is otherwise clear as visualized. Soft tissues: The visualized pharyngeal soft tissues are normal in appearance noting angiographic phase technique. The oropharyngeal airway appears widely patent. The salivary and thyroid glands are normal in appearance. No cervical lymphadenopathy is seen. Skeletal structures: The calvarium appears intact. The cervical spine is within normal limits. Orbits: The bony orbits are intact. Orbital contents are normal as visualized note that bilateral ocular lens implants. Sinuses and mastoids: There is trace mucosal thickening within the maxillary antra. A 1.4 cm retention cyst is seen on the right. Trace mucosal thickening is also seen within the right sphenoid sinus and ethmoid sinuses. The mastoid air cells are well pneumatized. IMPRESSION: 1. There is no hemorrhage, mass effect, or evidence of acute territorial ischemia by CT criteria. 2. Unremarkable CT angiogram of the brain. No change from 03/16/2021. 3. Unremarkable CT angiogram of the neck. No change from 03/16/2021. 4. Emphysema. ACT 112: Negative or not required by law. Electronically signed by: Marco Helms M.D. 08/14/2021 2:53 PM Brain MRI 08/14/21 15:01 MRI OF THE BRAIN WITHOUT CONTRAST CLINICAL HISTORY: diplopia, gaze difficulty, gait difficulty COMPARISON STUDY: MRI of the brain March 16, 2021. Head CT and CTA of the head performed earlier today. TECHNIQUE: Utilizing a 1.5 Daisha magnet and dedicated coil, multiplanar, multiecho imaging of the brain was performed without IV contrast. FINDINGS: There are no foci of restricted diffusion to suggest acute infarct. No acute intracranial hemorrhage, midline shift or mass effect is present. Brain volume is normal. Ventricular system is normal. Basal cisterns are patent. There are no extra-axial collections. Flow-voids for the major intracranial vessels are present. No intracranial masses identified on this unenhanced examination. A suspected old lacunar infarct within the left thalamus is unchanged. A few small white matter T2 hyperintense foci are similar to MRI of March 16, 2021. Calvarial signal is normal. There is polypoid mucosal thickening of the right maxillary sinus. There is mild ethmoid and right sphenoid sinus mucosal thickening. IMPRESSION: No acute intracranial findings. No change in appearance of the brain since MRI of March 16, 2021. ACT 112: Negative or not required by law. Electronically signed by: Hamlet Woods M.D. 08/14/2021 5:21 PM Discharge Plan Visit Data Chief Complaint: Stroke/CVA Symptoms Stated Complaint: STROKE SYMPTOMS ED Provider: Ronnell Huang Discharge Problem: COVID-19, Encounter for smoking cessation counseling, Diplopia, Facial droop Patient Disposition: Admitted As Inpatient Forms [facility] Prescriptions Prescriptions: No Action ondansetron HCl [Zofran] 4 mg tablet 4 mg PO TID PRN (Reason: nausea and vomiting) Qty: 30 RF: 3 atorvastatin 40 mg tablet 40 mg PO QPM RF: 0 aspirin 81 mg tablet,delayed release (DR/EC) 81 mg PO QPM RF: 0 Flintstones Gummies Tablet,Chewable 2 tab PO QPM RF: 0 Referrals Referrals: PCP,NO [Primary Care Provider] -
[2021-08-14 13:59] LABS: Partial Thromboplastin Ratio 0.9; Partial Thromboplastin Time 22.8 Seconds (21.0-31.0)
[2021-08-14 14:06] LABS: Alanine Aminotransferase 13 U/L (12-78); Albumin Level 3.7 gm/dl (3.4-5.0); Alkaline Phosphatase 69 U/L (45-117); Aspartate Aminotransferase 8 U/L (15-37); BUN Creatinine Ratio 9.7 (10-20); Bilirubin,Total 0.5 mg/dl (0.2-1); Blood Urea Nitrogen 8 mg/dl (7-18); Carbon Dioxide 26 mmol/L (21-32); Chloride 107 mmol/L (98-107); Est GFR (African American) 91.9 ml/min; Est GFR (Non-African American) 79.3 ml/min; Globulin 3.8 gm/dl (2.5-4.0); Glucose 50 mg/dl (70-99); Magnesium 2.5 mg/dl (1.8-2.4); Potassium 3.3 mmol/L (3.5-5.1); Sodium 139 mmol/L (136-145); Total Protein 7.5 gm/dl (6.4-8.2); Troponin I < 0.015 ng/ml (0-0.045)
[2021-08-14] MEDS ORDERED: DEXTROSE 50% 50 ML SYRINGE IV ONE ×2 (14:13→15:40)
[2021-08-14] MEDS ORDERED: OPTIRAY 320 125ml IV ONE (14:34)
--- NOTE | 2021-08-14 14:54 | CT Scan Report ---
UNENHANCED CT OF THE BRAIN; CT ANGIOGRAM OF THE BRAIN; CT ANGIOGRAM OF THE NECK CLINICAL HISTORY: Strokelike symptoms. COMPARISON STUDY: CT angiogram of the head and neck dated 03/16/2021. TECHNIQUE: Unenhanced axial CT scan of the brain is performed. Subsequently, following the IV adminis tration of 120 of Optiray 320, CT angiogram of the head and neck was performed from the aortic arch t o the vertex. Images are reviewed in the axial, sagittal, and coronal planes. 3-D MIPS images are cre ated and assessed. IV contrast was administered without complication. All measurements were calculate d based on NASCET criteria. A dose lowering technique was utilized adhering to the principles of ALA RA. CT DOSE: 863.30 mGy.cm FINDINGS: Brain parenchyma: A small chronic lacunar infarct is noted in the left thalamus. There is no hemorrha ge, mass effect, or evidence of acute territorial ischemia by CT criteria. There is no evidence of en hancing mass lesion on the angiogram phase images. The ventricles, sulci, and cisterns are normal in configuration. Linder-white matter differentiation is preserved. No extra-axial fluid collection is see n. Thoracic aorta: Visualized portions of the thoracic aorta are normal in caliber. The aortic arch demo nstrates standard 3-vessel anatomy. Right carotid arterial system: The right common carotid artery is widely patent, as are the right int ernal and external carotid arteries. Left carotid arterial system: The left common carotid artery is widely patent, as are the left news internship al and external carotid arteries. Vertebral arteries: The vertebral arteries are widely patent bilaterally and codominant. Subclavian arteries: Widely patent bilaterally. Intracranial vasculature: There is a large right posterior communicating artery. The internal carotid arteries are patent at the skull base, as are the anterior and middle cerebral arteries bilaterally. The vertebrobasilar system and posterior cerebral arteries are widely patent. The vertebral arteries are codominant. There is no aneurysm, high-grade stenosis, or focal vessel cut off seen throughout t he intracranial circulation. Jugular veins: Patent bilaterally. Dural sinuses: Patent. Lung apices: Emphysematous change is noted. Upper lobe lung parenchyma is otherwise clear as visualiz ed. Soft tissues: The visualized pharyngeal soft tissues are normal in appearance noting angiographic pha se technique. The oropharyngeal airway appears widely patent. The salivary and thyroid glands are nor mal in appearance. No cervical lymphadenopathy is seen. Skeletal structures: The calvarium appears intact. The cervical spine is within normal limits. Orbits: The bony orbits are intact. Orbital contents are normal as visualized note that bilateral ocu lar lens implants. Sinuses and mastoids: There is trace mucosal thickening within the maxillary antra. A 1.4 cm retentio n cyst is seen on the right. Trace mucosal thickening is also seen within the right sphenoid sinus an d ethmoid sinuses. The mastoid air cells are well pneumatized. IMPRESSION: 1. There is no hemorrhage, mass effect, or evidence of acute territorial ischemia by CT criteria. 2. Unremarkable CT angiogram of the brain. No change from 03/16/2021. 3. Unremarkable CT angiogram of the neck. No change from 03/16/2021. 4. Emphysema. ACT 112: Negative or not required by law. Electronically signed by: Marco Helms M.D. 08/14/2021 2:53 PM
[2021-08-14] MEDS ORDERED: ASPIRIN CHEW 324 MG PO STA (15:01)
--- NOTE | 2021-08-14 17:05 | Electrocardiogram Report ---
Test Reason : Blood Pressure : / mmHG Vent. Rate : 064 BPM Atrial Rate : 064 BPM P-R Int : 130 ms QRS Dur : 074 ms QT Int : 396 ms P-R-T Axes : 078 056 065 degrees QTc Int : 408 ms Normal sinus rhythm Left atrial enlargement Poor R wave progression, consider anterior GA vs. lead placement vs. LVH Abnormal ECG When compared with ECG of 16-MAR-2021 04:05, No significant change Confirmed by Daniel Ibrahim ([id number]) on 08/14/2021 5:05:12 PM Referred By: REFERRED SELF Confirmed By:Daniel Ibrahim
--- NOTE | 2021-08-14 17:23 | Magnetic Resonance Report ---
MRI OF THE BRAIN WITHOUT CONTRAST CLINICAL HISTORY: diplopia, gaze difficulty, gait difficulty COMPARISON STUDY: MRI of the brain March 16, 2021. Head CT and CTA of the head performed earlier jeremiah pedraza TECHNIQUE: Utilizing a 1.5 Daisha magnet and dedicated coil, multiplanar, multiecho imaging of the bra in was performed without IV contrast. FINDINGS: There are no foci of restricted diffusion to suggest acute infarct. No acute intracranial h emorrhage, midline shift or mass effect is present. Brain volume is normal. Ventricular system is nor mal. Basal cisterns are patent. There are no extra-axial collections. Flow-voids for the major intrac ranial vessels are present. No intracranial masses identified on this unenhanced examination. A suspe cted old lacunar infarct within the left thalamus is unchanged. A few small white matter T2 hyperinte nse foci are similar to MRI of March 16, 2021. Calvarial signal is normal. There is polypoid mucosal thickening of the right maxillary sinus. There is mild ethmoid and right sphenoid sinus mucosal thick ening. IMPRESSION: No acute intracranial findings. No change in appearance of the brain since MRI of March 16, 2021. ACT 112: Negative or not required by law. Electronically signed by: Hamlet Woods M.D. 08/14/2021 5:21 PM
--- NOTE | 2021-08-14 18:01 | History & Physical Report ---
Date of Service August 14, 2021 Assessment & Plan (1) TIA (transient ischemic attack): Plan: 51 y/o F w/ PMHx of 2 prior CVAs (midbrain), elevated homocysteine, and positive covid who presents w/ likely TIA and acute encephalopathy. Stable. She presents w/ similar symptoms as her prior 2 CVA admissions, notably vertical diplopia, dizziness, slightly facial droop, imbalance, and generalized fatigue and generalized weakness. With the negative CT and MRI as well as improvement of several of these symptoms, she most likely had a TIA. Considered, but lower suspicion for atypical migraine, infection, hypoglycemia, seizure. Labs reviewed, mostly unremarkable CMP/CBC aside from hypoK, hyperMg, hypoglycemia. Trop neg. ECG w/o ischemic changes. Reviewed prior records.02/06/21 admission w/ initial 02/07/21 MRI, but 02/08/21 MRI w/ L posterior medial midbrain acute/subacute infarct. 03/16/21 admission for similar symptoms, rx'd w/ TPA for probably recurrent posterior circulation stroke. Hypercoagulable workup negative, but homocysteine elevated at 16. 02/07/21 TTE w/ possible R->L shunt. 04/05/21 SONIA did not visualize ASD or PFO. Plan: - q4 neuro checks - qhs statin and baby ASA - permissive HTN - check UDS - check A1c - check CXR - trend BSG - consult neuro because still has some symptoms (dysconjugate gaze and diplopia) (2) Hypoglycemia: Plan: Patient presented w/ 2 episodes of hypoglycemia in the ED. 50 at admission, >200 after dextrose, later repeat of 60. No hx of diabetes. HPI notable for not eating since last night, but this is not unusual for the patient. Differential includes exogenous insulin/sulfonylurea vs insulinoma. Given the HPI, will defer c peptide testing. - trend BSGs q4H overnight (3) SARS-CoV-2 positive: Plan: Asymptomatic. Patient is not covid-vaccinated. - ordered covid precautions (4) DVT prophylaxis: Plan: - SQ lovenox (5) Current smoker: Plan: Patient currently uses <1PPD. - phone counselor in AM (6) Hypokalemia: Plan: - replete as needed Plan: FEN/GI: NPO until nursing swallow eval ppx: Lovenox code: full dispo: med/surg tele History of Present Illness Chief Complaint: dizziness and diplopia Primary Care Provider: NO PCP Brit Ngo is a 51 y/o F w/ PMHx of CVAx2 (midbrain), elevated homocysteine, anxiety, COPA, current tobacco use, migraine w/ aura who presents w/ concern for stroke-like symptoms. 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 She also complained of her right face feeling different. The dizziness lasted 20 minutes. Patient's sister took the patient to the ED because this presentation was very similar to her previous 2 strokes back in January and February 2021. Per sister, patient complained of right sided headache and some fatigue last night, but otherwise did not have other symptoms. Patient developed progressive fatigue while in the ED. Head/brain imaging (CT, CTA, MRI) was negative for acute stroke. ~530pm, patient's sister noticed slight slurred speech while going to MRI and mild right facial droop. These have since improved/resolved. Patient continues to have diplopia and fatigue. Denies other ROS complaints. Patient's last meal was last night. This is normal for her as she does not typically eat in the morning. Per chart review, marijuana use in past. Patient is nonadherent to ASA/statin because she does not like taking medications. + family hx of migraines and stroke. No family hx of seizure. HPI limited as history was mostly obtained from sister because of patient's somnolence. Patient contributed some of the answers. Allergies Allergy/AdvReac Type Severity Reaction Status Date / Time No Known Allergies Allergy Verified 08/14/21 14:43 Home Medications Medication Instructions Recorded Confirmed Type aspirin 81 mg tablet,delayed 81 mg PO QPM 04/03/21 08/14/21 History release atorvastatin 40 mg tablet 40 mg PO QPM 04/03/21 08/14/21 History pediatric multivitamin no.49 2 tab PO QPM 04/03/21 08/14/21 History (Flmakeda Gummies) ondansetron HCl 4 mg tablet 4 mg PO TID PRN #30 tab 05/01/21 08/14/21 Rx (Zofran) Past Med/Surg History Medical History Anxiety no meds COPD with emphysema Current smoker CVA (cerebral vascular accident) x2--02/06/2021 and 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 Bro Irregular heart beat follows with Dr. Feldman PFO (patent foramen ovale) Surgical History History of bilateral tubal ligation History of laparoscopy History of transesophageal echocardiography ([facility]) (~04/02/21) S/P cataract surgery bilt Family History Mother Heart disease Hypertension Father , aged 34 of a motor vehicle accident No problems noted. Brother Family history of diabetes mellitus Grandmother (Paternal) Family history of diabetes mellitus Family hx of colon cancer Other Coronary heart disease Diabetes No family history of adverse response to anesthesia Social History Smoking Status: Never smoker Tobacco Type: Cigarettes Cigarettes Per Day: 12; Second Hand Exposure: Yes; Hx Alcohol Use: Yes Alcohol Intake Frequency Comment: 1-2 drinks per month Hx Substance Use: No Preferred Language: Tunisian Communication Ability: Effective Waste Transportation Technician Required: No Beliefs That Will Affect Care: None Current Living Situation: Spouse Current Living Situation Comment: Lives with and son 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: employed 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 +fatigue. Eyes: +blurry and double vision ENT: Denies sore throat, sinus pain, loss of taste/smell Cardiovascular: Denies chest pain, palpitations Respiratory: Denies shortness of breath Gastrointestinal: Denies abdominal pain, nausea, vomiting, constipation, diarrhea Genitourinary: Denies urinary symptoms Musculoskeletal: No specific complaint. Neurological: Denies headache, numbness, tingling, focal weakness Physical Exam Physical Exam: Vitals reviewed. General: A&Ox4. NAD. Cooperative. Somnolent, mostly keeps eyes closed, but is answering questions and will awaken w/ prompting. HEENT: Atraumatic, normocephalic. PERRL. Patient is slow to respond during extraocular movement testing, but is able to move in all directions. Patient still has mild disconjugate gaze per Dr. Jarrett's exam. Pulm: CTAB. -wheezes, -rales, -rhonchi. No respiratory distress. Cardiac: RRR, -mrg. Radial pulses intact and symmetrical. Abdominal: Nontender, nondistended, soft. Neuro: No obvious facial droop. 5+/5 strength. Normal sensation. Other than extraocular movement findings noted above, other cranial nerves intact. Integ: Warm, dry, intact. Results & Data Results & Data ([place]) Vital Signs (Past 12 Hours) Vital Signs Temp Pulse Pulse Resp BP BP Pulse Ox 08/14/21 17:34 66 16 121/75 96 08/14/21 17:25 62 19 154/84 H 97 08/14/21 16:01 73 19 165/95 H 96 08/14/21 15:37 81 20 156/86 H 92 08/14/21 15:03 70 16 170/106 H 98 08/14/21 14:40 81 17 197/115 H 99 08/14/21 14:21 63 22 167/95 H 95 08/14/21 14:00 67 20 163/100 H 100 08/14/21 13:50 67 22 157/110 H 96 08/14/21 13:32 96 08/14/21 13:30 76 23 177/112 H 95 08/14/21 13:18 79 23 158/129 H 96 08/14/21 13:08 36.8 C 87 18 174/94 H 98 Laboratory Results 08/14/21 13:23 08/14/21 13:[address], Head CTA, Neck CTA 08/14/21 13:[address] OF THE BRAIN; CT ANGIOGRAM OF THE BRAIN; CT ANGIOGRAM OF THE NECK IMPRESSION: 1. There is no hemorrhage, mass effect, or evidence of acute territorial ischemia by CT criteria. 2. Unremarkable CT angiogram of the brain. No change from 03/16/2021. 3. Unremarkable CT angiogram of the neck. No change from 03/16/2021. 4. Emphysema. Brain MRI 08/14/21 15:01 MRI OF THE BRAIN WITHOUT CONTRAST IMPRESSION: No acute intracranial findings. No change in appearance of the brain since MRI of March 16, 2021. Chest X-Ray 08/14/21 19:41 IMPRESSION: No acute cardiopulmonary findings. Code Status & VTE Plan Code Status full code VTE Prophylaxis Plan VTE Prophylaxis will be ordered: Yes Supervising Physician Co-Signing Physician Notes Resident Physician Supervision Note: I interviewed and examined the patient. Discussed with Dr. SCHMITZ and agree with findings and plan as documented in the note. Any exceptions or clarifications are listed here: none 51-year-old female with history of CVA x2 with question of PFO which has been ruled out in February. Presents after going to work today and then developing lethargy diplopia and ataxia. This is similar to previous CVA presentations. In the ER she is found to have Covid although not having no pulmonary symptoms and be hypoglycemic for undisclosed reasons. Patient denies take any occasions or outside substances. Patient did not eat any food today. Patient says she typically goes to work without eating any breakfast or lunch. 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 During her previous stroke she does not typically take reliable aspirin or statin therapy she does continue to smoke cigarettes. Her sister is present whom she lives with her they cannot recall where they may have had a Covid exposure although she does work in the public. The patient is not immunized. Emergency room evaluation the patient awake alert and appropriate. She does still have disconjugate gaze and some mild flattening of her right nasolabial fold. She has no other focal neurological signs or symptoms. She appears to be in sinus rhythm without murmurs there is no peripheral stigmata of endocarditis remainder of her examination other than some lethargy seems to be intact. Patient is brought into our facility for concern for TIA versus hypoglycemic related symptoms with incidental finding of Covid Regarding her TIA which is a recurrent issue likely due to also noncompliance of disease modifying medications patient will have a neurological consult be reinstated on aspirin and statin. PT OT evaluation. Regarding hypoglycemia this is curious we will check frequent blood glucoses co nsider sending a C-peptide and insulin level in the morning. Urine tox screen is sent. Regarding her Covid diagnosis chest x-ray is currently pending she is not hypoxemic does not qualify for any medications at this time she will be in respiratory isolation. Documented By: Pradeep Jarrett MD Resident Activity Tracking Resident Involvement: Resident Care Provided Care Provided: [facility]
--- NOTE | 2021-08-14 20:07 | XRay Report ---
XR chest 1V portable CLINICAL HISTORY: covid pos COMPARISON STUDY: Chest radiograph March 16, 2021. FINDINGS: Lung volumes are normal. Lungs are clear. There is no pneumothorax or pleural effusion. Car diac size is normal. Mediastinal contours are normal. There is no evidence for pulmonary edema. Incid ental note is made of contrast within the collecting systems from recent contrast-enhanced CT. Upper lobe predominant emphysema is present. IMPRESSION: No acute cardiopulmonary findings. ACT 112: Negative or not required by law. Electronically signed by: Hamlet Woods M.D. 08/14/2021 8:05 PM
[2021-08-14] MEDS ORDERED: CARBOHYDRATES FOR HYPOGLYCEMIA PO PRN (20:39)
[2021-08-14] MEDS ORDERED: GLUCOSE 40% GEL 15 GM TUBE PO PRN (20:39)
[2021-08-14] MEDS ORDERED: DEXTROSE 50% 50 ML SYRINGE IV PRN (20:39)
[2021-08-14] MEDS ORDERED: ENOXAPARIN INJ 40 MG/0.4 ML SYR SQ SCH (20:45)
[2021-08-14] MEDS ORDERED: POTASSIUM CHLORIDE PWD 20 MEQ PACK PO STA (21:15)
[2021-08-14] MEDS ORDERED: PHARMACIST DISCHARGE MED REC CONSULT PRN (21:44)
[2021-08-14] MEDS ORDERED: ATORVASTATIN 40 MG TAB PO SCH (21:44)
[2021-08-14] MEDS ORDERED: MULTIVITAMIN CHEWABLE TAB PO SCH (22:00)
[2021-08-15 07:14] LABS: Basophils # (auto) 0.06 K/uL (0-0.2); Basophils % (auto) 0.9 %; Eosinophils # (auto) 0.38 K/uL (0-0.5); Eosinophils % (auto) 5.7 %; Hematocrit (blood only) 41.1 % (37-47); Hemoglobin 13.8 g/dL (12.0-16.0); Immature Granulocytes # (auto) 0.01 K/uL (0.00-0.02); Immature Granulocytes % (auto) 0.1 %; Lymphocytes # (auto) 2.02 K/uL (1.2-3.4); Lymphocytes % (auto) 30.1 %; Mean Corpuscular Hemoglobin 31.9 pg (25-34); Mean Corpuscular Hgb Conc 33.6 g/dL (32-36); Mean Corpuscular Volume 95.1 fL (80-100); Mean Platelet Volume 8.9 fL (7.4-10.4); Monocytes % (auto) 10.4 %; Neutrophils # (auto) 3.54 K/uL (1.4-6.5); Neutrophils % (auto) 52.8 %; Platelet Count 257 K/uL (130-400); RDW Coefficient of Variation 13.2 % (11.5-14.5); RDW Standard Deviation 45.8 fL (36.4-46.3); Red Blood Count 4.32 M/uL (4.2-5.4); White Blood Count 6.71 K/uL (4.8-10.8)
[2021-08-15 07:51] LABS: BUN Creatinine Ratio 12.6 (10-20); Calcium 8.8 mg/dl (8.5-10.1); Creatinine Clr Calc Pharmacy 55.3 ml/min; Est GFR (African American) 98.8 ml/min; Est GFR (Non-African American) 85.3 ml/min
[2021-08-15 07:56] LABS: Estimated Average Glucose 114 mg/dl; Hemoglobin A1C 5.6 % (4.5-5.6)
--- NOTE | 2021-08-15 08:24 | Neurology Consultation ---
Date of Consultation August 15, 2021 Assessment & Plan (1) Stroke-like symptom: Patient with Hx tobacco use, COPD with sudden onset of vertical diplopia, generalized weakness, and right sided facial numbness in the afternoon on 08/14/21. This would be potentially consistent with a posterior circulation stroke, however no findings on imaging. Symptoms are likely secondary to tissue compromise in the area of the original stroke (stroke recrudescence), exacerbated by other cause (likely hypoglycemia, perhaps COVID 19 positive state). Luckily much of her symptoms have resolved at time of my interview. CT Head, CTA Head/Neck unremarkable for acute stroke. MRI with evidence of old small left posterior medial mid brainstroke, however no acute strokes. She is also noted to have small vessel ischemic disease, her primary risk factor for which is her smoking history. She does not have history of diabetes, and has been normotensive this admission. Was hypoglycemic on arrival to ER, potentially secondary to her chronic issues with poor oral intake. Hypoglycemia could certainly cause her stroke-like symptoms. Unfortunately, she was not compliant at home with either her aspirin or her statin medication. Long conversation had today about the potentially debilitating effects of strokes, and that this event was one of several warning signs that she is at significant risk for recurrence should she not take these medications. We also discussed adequate PO intake to prevent hypoglycemia, which can mimic stroke. Recommendations: 1. Encouraged resuming 81 milligram aspirin tablet daily, and moderate-intensity statin (atorvastatin 40mg was prescribed in the past and would be acceptable for secondary risk prevention). 2. Discontinue cigarette smoking. 3. Could consider repeat MRI with attention to the brainstem if patient's diplopia does not improve within a few days. Please see Dr. Limon's attestation for other recommendations. Supervising Physician Co-Signing Physician Notes I agree with the entire history and physical examination, assessment and plan of Dr. Whittington above. I 1st saw this patient in mid January of 2021. At that time she had the onset of right-sided weakness, double visits, nonspecific wooziness / dizziness and a right facial droop. At the time I wondered about a very mild right 3rd nerve palsy. Initial MRI of the brain the day of admission showed no acute stroke. A repeat MRI 2 days post admission showed an acute small left midbrain stroke. She was told to stop cigarette smoking and was initiated on 81 milligram aspirin tablet daily. She was also initiated on a statin. The patient returned in February of this year with recurrent double vision. A repeat MRI was unremarkable for any acute or new /extended stroke she was not compliant with aspirin or statin and was still smoking. Dr. Bro saw her and encouraged To stop smoking and take her medication. The patient returned August 14 with vertical diplopia, generalized weakness and right-sided facial numbness. Today she still has some vertical diplopia but has no numbness or weakness. CT angiography of the head and neck were unremarkable. CT scan of the head showed no bleed. MRI showed no new stroke. The patient again tells me that she was not taking aspirin although cut her cigarette smoking to about half a pack a day. On examination today she is awake and alert with normal speech and mentation. She has some dysconjugate gaze consistent with a very mild 3rd nerve palsy on the left. The rest of her cranial nerve exam was unremarkable and she had normal strength, sensation, and coordination in all limbs. Overall, I suspect that she had a recurrence of her previous stroke-like symptoms with no new or extended stroke. I note that she had significant hypoglycemia when she came to the emergency room. Hypoglycemia can imitate focal neurologic findings ( and bring out old stroke symptoms ). We encouraged her to take her 81 milligram aspirin tablet daily and atorvastatin 40 milligrams daily. We talked about tapering off cigarette smoking altogether. Otherwise, I would follow up as an outpatient. History of Present Illness Reason for Consultation: stroke-like symptoms Requesting Physician: Dr. Robert Reese, Dr. Pradeep Jarrett Attending Physician: Nataliia Kilgore MD History of Present Illness 51 yo right-handed F Hx current tobacco use (1/2PPD for 24 years), previous left midbrain stroke, COPD, anxiety presented to [facility] for symptoms similar to previous stroke symptoms. She started having symptoms at about 12:30PM yesterday, including right sided facial numbness, near-syncopal lightheadedness, generalized weakness, and vertical diplopia. At 5:30PM patient was described by sister to have developed a mild right facial droop. ER course included CT Head, MRI negative for acute stroke. CTA Head/Neck without occlusive disease. Neurology was consulted for TIA vs. CVA, and decision was made not to pursue TPA given negative imaging. Noted to be COVID 19 positive on admission testing; patient is not vaccinated. Also noted to be hypoglycemic on admission to 50, with increase to 200 with amp of dextrose. However, did again decrease to 60 shortly thereafter and was again given an amp of dextrose. No hypoglycemia since. This morning patient complains only of vertical diplopia and generalized fatigue. She does not endorse facial droop at this time. Of note, on a previous TTE patient was thought to have a PFO, however this was ruled out on SONIA. She has had hypercoagulability workup including protein C and S, Factor 5, Antithrombin 3, Lupus AC, antiphospholipid panel. She has been noted to have an elevated homocysteine. Allergies Allergy/AdvReac Type Severity Reaction Status Date / Time No Known Allergies Allergy Verified 08/14/21 14:43 Home Medications Medication Instructions Recorded Confirmed Type aspirin 81 mg tablet,delayed 81 mg PO QPM 04/03/21 08/14/21 History release pediatric multivitamin no.49 2 tab PO QPM 04/03/21 08/14/21 History (Rosio Deutsch) atorvastatin 40 mg tablet 40 mg PO QPM #90 tab 08/15/21 Rx cyanocobalamin (vitamin B-12) 1,000 mcg PO DAILY #30 tab 08/15/21 Rx 1,000 mcg tablet folic acid 1 mg tablet 1 mg PO QAM #30 tab 08/15/21 Rx umeclidinium 62.5 mcg/actuation 1 inh INHALATION DAILY #30 ea 08/15/21 Rx blister powder for inhalation (Incruse Ellipta) Patient History Medical History (Updated 08/15/21 @ 11:07 by Andreina Watts DO) Anxiety no meds COPD with emphysema Current smoker CVA (cerebral vascular accident) x2--02/06/2021 and 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 Bro Irregular heart beat follows with Dr. Feldman Surgical History History of bilateral tubal ligation History of laparoscopy History of transesophageal echocardiography (SONIA) (~04/02/21) S/P cataract surgery bilt Family History Mother Heart disease Hypertension Father , aged 34 of a motor vehicle accident No problems noted. Brother Family history of diabetes mellitus Grandmother (Paternal) Family history of diabetes mellitus Family hx of colon cancer Other Coronary heart disease Diabetes No family history of adverse response to anesthesia Social History Smoking Status: Current every day smoker Tobacco Type: Cigarettes Cigarettes Per Day: 0.5 packs/day; Second Hand Exposure: No; Hx Alcohol Use: Yes Alcohol type: wine Alcohol Intake Frequency Comment: 1-2 drinks per month Hx Substance Use: No Preferred Language: Romansh Communication Ability: Effective Associate Application Developer Required: No Beliefs That Will Affect Care: None Current Living Situation: Spouse and Family Current Living Situation Comment: Lives with and son 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: employed 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 Feels Safe at Home: Yes Assistive Devices: None Review of Systems Review of Systems: Constitutional: + fatigue and + weakness; no fever Eyes: + diplopia, no worsening vision or ocular pain Ear, Nose, Mouth, Throat: no ear pain, no tinnitus, no hoarseness and no dysphagia Respiratory: no cough and no dyspnea Cardiovascular: no chest pain, no palpitations and no lightheadedness Gastrointestinal: no abdominal pain, no nausea and no vomiting Musculoskeletal: no back pain, no neck pain, no radicular pain, no joint pain and no myalgia Integumentary: no rash and no lesions Neurologic: + generalized weakness; no gait abnormality or localized weakness, no tingling, no current numbness, no tremor(s), no abnormal movements, no headache(s), no abnormal speech, no confusion and no memory loss Psychiatric: no depression, no irritability, no anxiety, no difficulty concentrating, no confusion and no hallucinations Endocrine: + fatigue; no flushing Hematologic / Lymphatic: no easy bleeding and no easy bruising Allergy / Immunological: no urticaria, no history of allergies Physical Exam Physical Exam: General: patient appears well developed, thin, in no acute distress Heart: no murmurs, regular rate and rhythm, no peripheral edema, no carotid bruits Lungs: CTA bilaterally Neuro Exam: The patient is right-handed. The patient is awake, alert, and attentive. Speech is normal without any obvious aphasia or dysarthria. She can name objects, repeat phrases, and has normal spontaneous speech. Mentation and thought processes are intact, with orientation to person, place and time, and normal fund of knowledge. Attention and concentration are normal. Mood and affect are normal and appropriate. General appearance and grooming are normal. Short and long-term memory are intact to conversation. CN 2, 3, 4, 6: The discs are sharp with positive venous pulsations bilaterally. There are no exudates, hemorrhages, or blood vessel changes seen. Pupils are 3 mm bilaterally and reactive to light. Extraocular eye muscles are intact without nystagmus, however some slower movement of the left eye specifically with medial gaze. Visual acuity and visual etienne seem normal grossly to confrontation. With one eye covered, or the other, there was no diplopia. Convergence did cause increase in double vision and discomfort for the patient. CN 5, 7: No sensory deficits of the face in the ophthalmic, maxillary, or mandibular distributions. Facial strength normal bilaterally without facial droop, symmetric smile and eyebrow raise. CN 8: Hearing grossly normal. CN 9, 11, 12: Palate moves without asymmetry, uvula midline. Normal shoulder shrug strength bilaterally. Tongue is midline with good strength bilaterally. Motor Strength: 5/5 in bilateral arms (deltoids, biceps, triceps, wrist flexors and extensors, clinic coordinator, intrinsic hand muscles). 5/5 in bilateral legs (hip flexors, quads, hamstrings, foot flexors and extensors). Good muscle tone without rigidity or spasticity. Reflexes: 2/4 in the biceps, triceps, brachioradialis, quadriceps, and Achilles tendons bilaterally. No clonus. Downward Babinski bilaterally. Sensory Exam: intact to touch and pin with bilateral upper and lower limbs; and face described as above. No pronator drift. No tremors. Noted to have ataxia bilaterally with finger to nose testing. Results & Data ([facility]) Vital Signs (Past 12 Hours) Vital Signs Temp Pulse Pulse Resp BP BP Pulse Ox 08/15/21 07:24 37.2 C 74 18 124/76 100 08/15/21 02:00 36.9 C 61 16 125/75 96 08/14/21 22:20 65 08/14/21 21:44 36.9 C 62 19 143/86 H 97 08/14/21 20:30 60 17 126/79 97 Laboratory Results Normal: WBC, Hgb, Hct, plts. Na 141, K 4.0, creatinine and BUN normal, glu >100 since 15:29 on 08/14. Mg 2.5, LFTs normal. Lipid panel with TC 159, LDL 104, HDL 34, TG 107 B12, folate normal COVID 19 PCR POSITIVE Diagnostic Findings 08/14/21 CT Head, CTA Head/Neck: IMPRESSION: 1. There is no hemorrhage, mass effect, or evidence of acute territorial ischemia by CT criteria. 2. Unremarkable CT angiogram of the brain. No change from 03/16/2021. 3. Unremarkable CT angiogram of the neck. No change from 03/16/2021. 4. Emphysema. 08/14/21 MRI Brain: FINDINGS: There are no foci of restricted diffusion to suggest acute infarct. No acute intracranial hemorrhage, midline shift or mass effect is present. Brain volume is normal. Ventricular system is normal. Basal cisterns are patent. There are no extra-axial collections. Flow-voids for the major intracranial vessels are present. No intracranial masses identified on this unenhanced examination. A suspected old lacunar infarct within the left thalamus is unchanged. A few small white matter T2 hyperintense foci are similar to MRI of March 16, 2021. Calvarial signal is normal. There is polypoid mucosal thickening of the right maxillary sinus. There is mild ethmoid and right sphenoid sinus mucosal thickening. Resident Activity Tracking Resident Involvement: Resident Care Provided Care Provided: [facility]
[2021-08-15 09:39] LABS: Chol HDL Ratio 5; Cholesterol 159 mg/dl (0-200); HDL Cholesterol 34 mg/dl; LDL Cholesterol Calculated 104 mg/dl; Triglycerides 107 mg/dl (0-150); VLDL Cholesterol 21 mg/dl
[2021-08-15 10:42] LABS: Folate (Folic Acid) 12.1 ng/ml (>5.38)
[2021-08-15] MEDS ORDERED: STROKE PATIENT DISCHARGE STA (13:34)
--- NOTE | 2021-08-15 13:35 | Discharge Summary ---
Date of Service August 15, 2021 Admission HPI Per Admitting Provider Brit Ngo is a 51 y/o F w/ PMHx of CVAx2 (midbrain), elevated homocysteine, anxiety, COPA, current tobacco use, migraine w/ aura who presents w/ concern for stroke-like symptoms. 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 She also complained of her right face feeling different. The dizziness lasted 20 minutes. Patient's sister took the patient to the ED because this presentation was very similar to her previous 2 strokes back in January and February 2021. Per sister, patient complained of right sided headache and some fatigue last night, but otherwise did not have other symptoms. Patient developed progressive fatigue while in the ED. Head/brain imaging (CT, CTA, MRI) was negative for acute stroke. ~530pm, patient's sister noticed slight slurred speech while going to MRI and mild right facial droop. These have since improved/resolved. Patient continues to have diplopia and fatigue. Denies other ROS complaints. Patient's last meal was last night. This is normal for her as she does not typically eat in the morning. Per chart review, marijuana use in past. Patient is nonadherent to ASA/statin because she does not like taking medications. + family hx of migraines and stroke. No family hx of seizure. HPI limited as history was mostly obtained from sister because of patient's somnolence. Patient contributed some of the answers. Principal Diagnosis Hypoglycemia and COVID-19 exacerbating old CVA symptoms Diplopia Discharge Exam Constitutional WD/WN, vitals as above Eyes PERRL, conjunctivae normal, anicteric sclerae + EOM not intact (with slight left medial gaze palsy) ENMT external ear and nose normal, oropharynx normal Neck trachea midline, no thyromegaly Respiratory normal respiratory effort, lungs clear to auscultation Cardiovascular RRR, no murmur, no edema Chest (Breasts) Chest: normal inspection of chest Gastrointestinal (Abdomen) normal bowel sounds, soft, nontender, no hepatosplenomegaly Musculoskeletal Extremities: extremities normal to inspection; no cyanosis and no clubbing Skin no rashes, warm and dry Neurologic moves all extremities and awake; no focal motor deficits Psychiatric A+Ox3, euthymic affect Lymphatic no lymphedema Discharge Data Allergies Allergy/AdvReac Type Severity Reaction Status Date / Time No Known Allergies Allergy Verified 08/14/21 14:43 Consultations 08/14/21 19:01 ED Decision to Admit Stat 08/14/21 19:41 Consult Neurology Routine Ordered Studies 08/14/21 13:14 CT angio head w con Stat CT angio neck with con Stat CT head/brain wo con Stat 08/14/21 15:01 MR brain wo con Stat Hospital Course (1) TIA (transient ischemic attack): 51 y/o F w/ PMHx of 2 prior CVAs (midbrain) who presents w/ likely TIA and acute encephalopathy. She had significant hyperglycemia on arrival of 52 secondary to poor p.o. intake. She presents w/ similar symptoms as her prior 2 CVA admissions, notably vertical diplopia, dizziness, slight facial droop, imbalance, and generalized fatigue and generalized weakness. With the negative CT and MRI as well as improvement of several of these symptoms, she most likely had a TIA. 02/06/21 admission w/ initial 01/22 MRI02/08/21 MRI L posterior medial midbrain acute/subacute infarct. 03/16/21. probably recurrent posterior circulation stroke. homocysteine elevated at 16.0 02/2021 hypercoagulable workup neg otherwise She notably has been noncompliant with taking aspirin, atorvastatin as prescribed after her last CVA. She has not had any follow-up with the primary care physician either and needs a refill of the atorvastatin upon discharge. She also continues to smoke cigarettes on a daily basis. Despite her hyperhomocystinemia, she has not had other vitamin levels checked- B12 checked here and borderline low at 332. Folate normal at 12. Discussed case with neurology-appreciate their consultation and recommendations- most likely the symptoms of her old stroke have been exacerbated by her Covid-19 infection as well as her hypoglycemia. -Strongly encourage patient to restart aspirin 81 mg daily, atorvastatin 40 mg daily, and encouraged complete smoking cessation -Avoid hypoglycemia by eating small meals little and often during the day even if she is not hungry-she has lost 4 kg of body weight since she was here 5 months ago-she reports that she does not eat throughout most of the day and has been exercising more since her last stroke to get healthier-her body weight is very low to begin with so I encouraged increased caloric intake -Her elevated homocystine levels could be secondary to cigarette smoking as well, but given history of stroke at a young age, recommend starting folic acid 1 mg p.o. once daily, and vitamin B12 1000 mcg p.o. once daily for borderline low B12 levels -Follow-up with ophthalmology as an outpatient if diplopia does not improve -No driving recommended and should remain out of work until diplopia improves -Nurse navigator set her up with a new visit with her primary care physician to improve her overall health and follow-up on multiple hospitalizations for neurological events. (2) Hypoglycemia: As above Encourage p.o. intake If persists, recommend further evaluation for insulinoma (3) SARS-CoV-2 positive: Asymptomatic. Patient is not covid-vaccinated. Continue to quarantine for 10 days Not hypoxic and no treatment needed for this Gave precautions to return if has worsening shortness of breath, chest pain, or any other acute concerning symptoms (4) Current smoker: Patient currently uses <1PPD. Strongly encourage smoking cessation (5) Diplopia: As above (6) CVA (cerebral vascular accident): As above, has not been compliant with stroke prevention medications Previously had a 30-day event monitor which did not show atrial fibrillation/flutter, SONIA which did not show ASD With hyper homocystinemia as below, cigarette smoking as risk factors for stroke (7) Hyperhomocysteinemia: As above, start folic acid and B12 supplementation (8) B12 deficiency: As above, start B12 supplementation (9) DVT prophylaxis: - SQ lovenox Disposition-stable for discharge to home Total Time Total Time Spent Total Time Spent (In Minutes): 40 minutes Total Time Includes: Examination of the Patient, Discharge Planning, Medication Reconciliation and Communication With Other Providers (Neurology) Discharge Plan Discharge Items Patient Disposition: Home - Self-Care Reason For Visit: TIA Discharge Diagnosis: TIA, Diplopia, COVID-19, hypoglycemia Condition on Discharge: Fair Activity: As commented below Lifting: Gradually increase as tolerated Bathing: No limitations Exercise/Sports: Gradually increase as tolerated Exercise Comment: Remain out of work for 8 more days Driving/Machine Use: No driving until vision improves Weightbearing: Full weightbearing Non-emergency contact: Primary Care Provider and Neurologist Call non-emergency contact if: you have any medication questions and your symptoms worsen Follow-up/Referrals: Brett Quinonez CRNP [Nurse Practitioner] - 08/22/21 8:20 am () John Limon MD [Physician] - (Please follow up with Dr. Limon of Neurology within 1 month) Diet: Regular Addtl Attending Provider Instructions: You were admitted for stroke symptoms including double vision and facial droop. Your brain MRI did not show any new strokes, but did show old stroke. The Neurologist thinks that you had an exacerbation of your old stroke symptoms. This may have been due to your low blood sugar, or from your COVID infection. Also, it is very important that you quit smoking immediately as smoking can cause the small blood vessels in your brain to spasm and not get blood flow to the brain. It also contributes to buildup of plaque and strokes. Please also take the atorvastatin cholesterol pill and the aspirin every day. Also, last time you were here, we found your homocysteine levels to be elevated and this can also contribute to thickened blood and strokes. To correct this issue, please take vitamin B12, folic acid, and quit smoking. You should remain in quarantine for 8 more days for your COVID. If you develop worsening cough, shortness of breath, a low oxygen level (less than 88%), or chest pains, or any otherr acute issue, please return to the hospital right away. Risk Factors for Stroke: You can reduce your chances of stroke by working with your medical provider to adopt a healthy lifestyle. Some specific ways to lower your chance of stroke are: * If you are a smoker, now is the time to stop smoking cigarettes * If you are diabetic, improve the control of your blood sugars * Avoid excessive amounts of alcohol * Control high blood pressure * Lose weight if you are overweight * Be sure to lead an active lifestyle * Eat a healthy diet low in salt, cholesterol and fat You should know about other risk factors for stroke that you are unable to control. These include: * Age 55 years or older * Male gender * Certain racial groups: , or / * Family History of Stroke, Mini stroke or Heart Attack * Sickle Cell Disease Follow Up: It is important for you to keep your follow up appointments with your medical provider. Who to Call and When: Medical Emergencies: Call 911 immediately if you experience any of the following warning signs and symptoms of Stroke: * Sudden numbness or weakness of the face, arm or leg, especially on one side of the body * Sudden confusion, trouble speaking or understanding * Sudden trouble seeing in one or both eyes * Sudden trouble walking, dizziness, loss of balance or coordination * Sudden severe headache with no cause Do not delay calling 911 if you experience any warning signs or symptoms of a stroke. Delay in seeking medical attention may affect what treatments can be given to you. . Pending Studies at Discharge: No Stand-Alone Forms: [facility] [employer], Work/School Release, Smoking Cessation Medications and DC Order Prescriptions: New cyanocobalamin (vitamin B-12) 1,000 mcg tablet 1,000 mcg PO DAILY Qty: 30 RF: 0 folic acid 1 mg Tablet 1 mg PO QAM Qty: 30 RF: 0 Incruse Ellipta 62.5 mcg/actuation blister with device 1 inh inhalation DAILY Qty: 30 RF: 0 Continued atorvastatin 40 mg tablet 40 mg PO QPM Qty: 90 RF: 0 aspirin 81 mg tablet,delayed release (DR/EC) 81 mg PO QPM RF: 0 Flintstones Gummies Tablet,Chewable 2 tab PO QPM RF: 0 Discontinued ondansetron HCl [Zofran] 4 mg tablet 4 mg PO TID PRN (Reason: nausea and vomiting) Qty: 30 RF: 3 Discharge Orders: Discharge Order (Routine); Ordered 08/15/21 Ordered By: Nataliia Nair/Other Patient Handouts: COVID-19 Home Care, TIA Dc Admission Data Admit Date/Time: 08/14/21 19:36 Attending Provider: Nataliia Kilgore Admit Provider: Robert Reese Primary Care Provider: PCP,NO Other Providers: John Limon ; Pradeep Jarrett Other Interventions: Discharge Summary Assessment (RN) Last Done: 08/15/21 13:54 Coding Level of Care Code D/C DAY MANAGEMENT >30 MINS Diagnoses TIA (transient ischemic attack) G45.9 Hypoglycemia E16.2 SARS-CoV-2 positive U07.1 DVT prophylaxis Z29.9 Current smoker F17.200 Diplopia H53.2 CVA (cerebral vascular accident) I63.9 CVA mechanism: unspecified Hyperhomocysteinemia E72.11 B12 deficiency E53.8
[2021-08-15] MEDS ORDERED: ASPIRIN 81 MG ECTAB PO SCH (21:00)
[2021-08-16] MEDS ORDERED: CYANOCOBALAMIN (VITAMIN B-12) 100 MCG TABLET PO SCH (09:00)
[2021-08-16] MEDS ORDERED: FOLIC ACID 1 MG TAB PO SCH (09:00)
== END 2021-08-15 14:40 | disposition home or self-care (01) | DRG 69 ==
LOC: ED 13:04 → 2S 19:36 → SUATTDRO 19:36 → 2S 21:30

== ENCOUNTER 2021-11-04 20:23 | Observation (INO) ==
[2021-11-04] MEDS ORDERED: SODIUM CHLORIDE 0.9% 1000ML 500 ML IV ONE (20:42)
--- NOTE | 2021-11-04 20:45 | Emergency Department Note ---
Impression & Plan Double vision, Stroke-like symptoms, Headache, Nausea, Hypertension ED Provider Note SeedNAME: ABHINAV CHAUHAN AGE: 51 SEX: F : 1970 ARRIVES VIA: Walk-In INFORMANT: [Patient] ED PROVIDER(S): [Marco Victoria MD] Patient initially seen by me at 2031 CHIEF COMPLAINT: Neuro symptoms HISTORY OF PRESENT ILLNESS: The patient is a 51-year-old female with a history of CVA. She is on aspirin therapy. She presents with an hour of symptoms. Symptoms began around 730pm she believes. She has a mild headache, some nausea, she feels tired. She has some double vision. She has had symptoms similar to this before and was diagnosed with a CVA. Looking at old records, she has had at least 2 CVAs. Her third presentation similar to today's turned out to be from infection with an exacerbation of past symptoms, there was no acute CVA at that visit. The patient has not had cough or congestion. No fever. No urinary complaints. She has not fallen. She did feel tired all day today but her real symptoms did not start until about an hour ago. REVIEW OF SYSTEMS: See HPI for pertinent positives and negatives. A total of ten systems were reviewed and were otherwise negative. PMHx/PSHx: See Below SOCIAL HISTORY: See Below. PHYSICAL EXAM: GENERAL: Patient is in no acute distress. HEENT: No acute trauma, normocephalic atraumatic, mucous membranes moist, no nasal congestion, no scleral icterus. NECK: No stridor, no adenopathy, no meningismus, trachea is midline. LUNGS: Clear to auscultation bilaterally, no wheeze, no rhonchi, breath sounds equal. HEART: Without murmurs gallops or rubs, regular rate and rhythm. ABDOMEN: Soft, nontender, bowel sounds positive, no hernias, no peritonitis. EXTREMITIES: No cyanosis or edema, full range of motion of all the joints without pain or difficulty, no signs for acute trauma. NEUROLOGIC: Oriented x 3. There is some difficulty with her holding her right leg in the air, a slight drift was seen. The left lower extremity had no drifting. No upper extremity drift. No speech slur or facial droop. No cerebellar dysfunction in the upper or lower extremities. SKIN: No rash, no jaundice, no diaphoresis. DIFFERENTIAL DIAGNOSIS: Infection, UTI, dehydration, metabolic abnormality, hypo/hyperglycemia, electrolyte disturbance, anemia, hypoxia, cardiac sources, intracerebral event, toxicologic issues, stroke, TIA, as well as other pathologies. EMERGENCY DEPARTMENT COURSE/PROCEDURES: ECG: Indication was possible stroke. The ECG shows a normal sinus rhythm with a rate of 70. There is an old anterior infarct. There is no ST elevation, no PVCs. The QTc is 425. Continuous Cardiac Monitoring: An order was placed for continuous cardiac monitoring. The monitor shows a rate of 72 with normal sinus rhythm. Critical Care Note: I have personally spent 51 minutes of critical care time in the direct management of this patient. This includes bedside care, interpretation of diagnostic studies, and testing, discussion with consultants, patient, and family members, and other required patient management activities. This 51 minutes is in excess of all separately billable procedures. MEDICAL DECISION MAKING: There is no leukocytosis or concerning anemia. There is a normal platelet count. No coagulopathy. No significant electrolyte abnormality or kidney failure. No concerning liver enzyme elevation. ECG shows a sinus rhythm, no acute ischemia. Cardiac enzyme testing x1 is not consistent with acute cardiac injury. Urinalysis does not show infection. Covid testing returned negative. Brain CT showed no acute bleed or mass-effect. CT angio of the head and neck were performed, there was no significant stenosis or clot seen. On my initial exam, there was some subtle right leg weakness. There was no facial droop or speech slur, no cerebellar dysfunction. Patient presents with strokelike symptoms. She has had previous CVAs. A stroke alert was called. The patient was given a 500 cc saline bolus. The patient received 5 mg IV hydralazine for high blood pressure. A repeat dose of hydralazine, 5 mg was given. At the advice of the stroke neurologist, the patient was given 300 mg of oral Plavix. The patient seemed to have resolution of symptoms. The right leg weakness seemed to resolve. As a result, TPA was not recommended by the stroke neurologist. Patient has had return to her baseline. She has a history of CVA and has had at least 2 previous strokes. She is at risk for recurrent CVA. I do think work-up in the hospital is warranted. The stroke neurologist from [facility] agrees. The patient is aware of her findings, her family is aware. I did speak with the bilingual case manager. The on-call hospitalist was consulted. Past Med/Surg History Medical History Anxiety no meds B12 deficiency COPD with emphysema Current smoker CVA (cerebral vascular accident) x2--02/06/2021 and 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 Bro Hyperhomocysteinemia Irregular heart beat follows with Dr. Feldman Surgical History History of bilateral tubal ligation History of laparoscopy History of transesophageal echocardiography (SONIA) (~04/02/21) S/P cataract surgery Family History Mother Heart disease Hypertension Father No problems noted. Brother Family history of diabetes mellitus Grandmother (Paternal) Family history of diabetes mellitus Family hx of colon cancer Other Coronary heart disease Diabetes No family history of adverse response to anesthesia Social History Smoking Status: Current every day smoker Tobacco Type: Cigarettes Cigarettes Per Day: 0.5 packs/day; Second Hand Exposure: No; Hx Alcohol Use: Yes Alcohol type: wine Alcohol Intake Frequency Comment: 1-2 drinks per month Hx Substance Use: No Preferred Language: Mohawk Communication Ability: Effective Professor Of Spanish Required: No Beliefs That Will Affect Care: None Current Living Situation: Spouse and Family Current Living Situation Comment: Lives with and son 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: employed current occupation: [employer] Feels Safe at Home: Yes Assistive Devices: None Allergies Allergies Allergy/AdvReac Type Severity Reaction Status Date / Time No Known Allergies Allergy Verified 11/04/21 20:51 Home Meds Home Medications Medication Instructions Recorded Confirmed aspirin 81 mg tablet,delayed 81 mg PO QPM 04/03/21 11/04/21 release pediatric multivitamin no.49 2 tab PO QPM 04/03/21 11/04/21 (Flintstones Gummies) Previous Rx's Medication Instructions Recorded atorvastatin 40 mg tablet 40 mg PO QPM #90 tab 08/15/21 cyanocobalamin (vitamin B-12) 1,000 mcg PO DAILY #30 tab 08/15/21 1,000 mcg tablet folic acid 1 mg tablet 1 mg PO QAM #30 tab 08/15/21 Results & Data (ED) Vital Signs Vital Signs - 24 hr 11/04/21 20:26 11/04/21 20:45 11/04/21 21:00 Temperature 37.0 C Temperature Source Temporal Artery Scan Pulse Rate 82 72 70 Pulse Rate from SpO2 Sensor 71 71 Respiratory Rate 18 22 23 Blood Pressure 147/90 H 156/90 H Blood Pressure Mean 109 112 Pulse Oximetry 96 96 95 Oxygen Delivery Method Room Air Room Air Room Air Oxygen Flow Rate Sepsis Recent Fever Within 48 Hours No Sepsis New/Unexplained Change in Mental Status N/A Sepsis Action Taken by Nursing No Action Required 11/04/21 21:19 11/04/21 21:23 11/04/21 21:30 Temperature Temperature Source Pulse Rate 71 72 Pulse Rate from SpO2 Sensor 71 72 Respiratory Rate Blood Pressure 156/98 H 173/100 H Blood Pressure Mean 117 124 Pulse Oximetry 96 96 98 Oxygen Delivery Method Room Air Room Air Room Air Oxygen Flow Rate 0 Sepsis Recent Fever Within 48 Hours Sepsis New/Unexplained Change in Mental Status Sepsis Action Taken by Nursing 11/04/21 21:45 11/04/21 21:50 11/04/21 21:55 Temperature Temperature Source Pulse Rate 79 77 75 Pulse Rate from SpO2 Sensor 79 79 75 Respiratory Rate 22 27 H Blood Pressure 166/122 H 162/92 H 171/96 H Blood Pressure Mean 136 115 121 Pulse Oximetry 99 98 98 Oxygen Delivery Method Room Air Room Air Room Air Oxygen Flow Rate Sepsis Recent Fever Within 48 Hours Sepsis New/Unexplained Change in Mental Status Sepsis Action Taken by Nursing 11/04/21 22:00 11/04/21 22:05 11/04/21 22:10 Temperature Temperature Source Pulse Rate 79 81 81 Pulse Rate from SpO2 Sensor 76 80 82 Respiratory Rate 21 13 17 Blood Pressure 175/100 H 152/93 H Blood Pressure Mean 125 112 Pulse Oximetry 98 99 98 Oxygen Delivery Method Room Air Room Air Room Air Oxygen Flow Rate Sepsis Recent Fever Within 48 Hours Sepsis New/Unexplained Change in Mental Status Sepsis Action Taken by Nursing 11/04/21 22:15 11/04/21 22:20 Temperature Temperature Source Pulse Rate 77 82 Pulse Rate from SpO2 Sensor 81 84 Respiratory Rate 18 16 Blood Pressure 141/106 H Blood Pressure Mean 117 Pulse Oximetry 98 98 Oxygen Delivery Method Room Air Room Air Oxygen Flow Rate Sepsis Recent Fever Within 48 Hours Sepsis New/Unexplained Change in Mental Status Sepsis Action Taken by Shelter Medications Current Medication List: was personally reviewed by me Laboratory Data Attestation: I reviewed the patient's lab results. Result diagrams: 11/04/21 20:45 11/04/21 21:28 Lab Results 11/04/21 11/04/21 11/04/21 Range/Units 20:45 20:45 20:45 WBC 8.05 (4.8-10.8) K/uL RBC 4.41 (4.2-5.4) M/uL Hgb 14.1 (12.0-16.0) g/dL Hct 41.8 (37-47) % MCV 94.8 (80-100) fL MCH 32.0 (25-34) pg MCHC 33.7 (32-36) g/dL RDW Std Deviation 45.2 (36.4-46.3) fL RDW Coeff of Kera 13.0 (11.5-14.5) % Plt Count 232 (130-400) K/uL MPV 8.8 (7.4-10.4) fL Immature Gran % (Auto) 0.1 % Neut % (Auto) 41.9 % Lymph % (Auto) 45.3 % [place] % (Auto) 8.1 % Eos % (Auto) 3.9 % Baso % (Auto) 0.7 % Neut # (Auto) 3.37 (1.4-6.5) K/uL Lymph # (Auto) 3.65 H (1.2-3.4) K/uL [place] # (Auto) 0.65 H (0.11-0.59) K/uL Eos # (Auto) 0.31 (0-0.5) K/uL Baso # (Auto) 0.06 (0-0.2) K/uL Immature Gran # (Auto) 0.01 (0.00-0.02) K/uL PT 10.2 (9.0-12.0) Seconds INR 1.0 (0.9-1.1) APTT 26.7 (21.0-31.0) Seconds PTT Ratio 1.0 Sodium (136-145) mmol/L Potassium (3.5-5.1) mmol/L Chloride (98-107) mmol/L Carbon Dioxide (21-32) mmol/L Anion Gap (3-11) BUN (7-18) mg/dl Creatinine (0.6-1.2) mg/dl Est Cr Clr Drug Dosing ml/min Est GFR ( Amer) ml/min Est GFR (Non-Af Amer) ml/min BUN/Creatinine Ratio (10-20) Glucose (70-99) mg/dl POC Glucose (70-99) mg/dl Calcium (8.5-10.1) mg/dl Magnesium (1.8-2.4) mg/dl Total Bilirubin (0.2-1) mg/dl AST (15-37) U/L ALT (12-78) Alkaline Phosphatase (45-117) U/L Troponin I (0-0.045) ng/ml Total Protein (6.4-8.2) gm/dl Albumin (3.4-5.0) gm/dl Globulin (2.5-4.0) gm/dl Albumin/Globulin Ratio (0.9-2) Urine Color Urine Appearance (Clear) Urine pH (4.5-7.5) Ur Specific [place] (1.000-1.030) Urine Protein (Negative) Urine Glucose (UA) (Negative) Urine Ketones (Negative) Urine Blood (Negative) Urine Nitrite (Negative) Urine Bilirubin (Negative) Urine Urobilinogen (Negative) Ur Leukocyte Esterase (Negative) SARS-CoV-2, RNA, NAAT (NEGATIVE) Blood Type A Positive Antibody Screen NEGATIVE 11/04/21 11/04/21 11/04/21 Range/Units 20:45 20:49 21:28 WBC (4.8-10.8) K/uL RBC (4.2-5.4) M/uL Hgb (12.0-16.0) g/dL Hct (37-47) % MCV (80-100) fL MCH (25-34) pg MCHC (32-36) g/dL RDW Std Deviation (36.4-46.3) fL RDW Coeff of Kera (11.5-14.5) % Plt Count (130-400) K/uL MPV (7.4-10.4) fL Immature Gran % (Auto) % Neut % (Auto) % Lymph % (Auto) % [place] % (Auto) % Eos % (Auto) % Baso % (Auto) % Neut # (Auto) (1.4-6.5) K/uL Lymph # (Auto) (1.2-3.4) K/uL [place] # (Auto) (0.11-0.59) K/uL Eos # (Auto) (0-0.5) K/uL Baso # (Auto) (0-0.2) K/uL Immature Gran # (Auto) (0.00-0.02) K/uL PT (9.0-12.0) Seconds INR (0.9-1.1) APTT (21.0-31.0) Seconds PTT Ratio Sodium 136 (136-145) mmol/L Potassium 3.6 (3.5-5.1) mmol/L Chloride 105 (98-107) mmol/L Carbon Dioxide 27 (21-32) mmol/L Anion Gap 1.0 L (3-11) BUN 11 (7-18) mg/dl Creatinine 0.92 (0.6-1.2) mg/dl Est Cr Clr Drug Dosing 50.2 ml/min Est GFR ( Amer) 84.7 ml/min Est GFR (Non-Af Amer) 73.1 ml/min BUN/Creatinine Ratio 12.2 (10-20) Glucose 93 (70-99) mg/dl POC Glucose 94 (70-99) mg/dl Calcium 8.9 (8.5-10.1) mg/dl Magnesium 2.2 (1.8-2.4) mg/dl Total Bilirubin 0.3 (0.2-1) mg/dl AST 12 L (15-37) U/L ALT 13 (12-78) Alkaline Phosphatase 53 (45-117) U/L Troponin I < 0.015 (0-0.045) ng/ml Total Protein 6.8 (6.4-8.2) gm/dl Albumin 3.4 (3.4-5.0) gm/dl Globulin 3.4 (2.5-4.0) gm/dl Albumin/Globulin Ratio 1.0 (0.9-2) Urine Color Urine Appearance (Clear) Urine pH (4.5-7.5) Ur Specific [place] (1.000-1.030) Urine Protein (Negative) Urine Glucose (UA) (Negative) Urine Ketones (Negative) Urine Blood (Negative) Urine Nitrite (Negative) Urine Bilirubin (Negative) Urine Urobilinogen (Negative) Ur Leukocyte Esterase (Negative) SARS-CoV-2, RNA, NAAT (NEGATIVE) Blood Type Antibody Screen 11/04/21 11/04/21 Range/Units Unknown Unknown WBC (4.8-10.8) K/uL RBC (4.2-5.4) M/uL Hgb (12.0-16.0) g/dL Hct (37-47) % MCV (80-100) fL MCH (25-34) pg MCHC (32-36) g/dL RDW Std Deviation (36.4-46.3) fL RDW Coeff of Kera (11.5-14.5) % Plt Count (130-400) K/uL MPV (7.4-10.4) fL Immature Gran % (Auto) % Neut % (Auto) % Lymph % (Auto) % [place] % (Auto) % Eos % (Auto) % Baso % (Auto) % Neut # (Auto) (1.4-6.5) K/uL Lymph # (Auto) (1.2-3.4) K/uL [place] # (Auto) (0.11-0.59) K/uL Eos # (Auto) (0-0.5) K/uL Baso # (Auto) (0-0.2) K/uL Immature Gran # (Auto) (0.00-0.02) K/uL PT (9.0-12.0) Seconds INR (0.9-1.1) APTT (21.0-31.0) Seconds PTT Ratio Sodium (136-145) mmol/L Potassium (3.5-5.1) mmol/L Chloride (98-107) mmol/L Carbon Dioxide (21-32) mmol/L Anion Gap (3-11) BUN (7-18) mg/dl Creatinine (0.6-1.2) mg/dl Est Cr Clr Drug Dosing ml/min Est GFR ( Amer) ml/min Est GFR (Non-Af Amer) ml/min BUN/Creatinine Ratio (10-20) Glucose (70-99) mg/dl POC Glucose (70-99) mg/dl Calcium (8.5-10.1) mg/dl Magnesium (1.8-2.4) mg/dl Total Bilirubin (0.2-1) mg/dl AST (15-37) U/L ALT (12-78) Alkaline Phosphatase (45-117) U/L Troponin I (0-0.045) ng/ml Total Protein (6.4-8.2) gm/dl Albumin (3.4-5.0) gm/dl Globulin (2.5-4.0) gm/dl Albumin/Globulin Ratio (0.9-2) Urine Color Yellow Urine Appearance Clear (Clear) Urine pH 7.0 (4.5-7.5) Ur Specific [place] 1.045 H (1.000-1.030) Urine Protein Negative (Negative) Urine Glucose (UA) Negative (Negative) Urine Ketones Negative (Negative) Urine Blood Negative (Negative) Urine Nitrite Negative (Negative) Urine Bilirubin Negative (Negative) Urine Urobilinogen Negative (Negative) Ur Leukocyte Esterase Negative (Negative) SARS-CoV-2, RNA, NAAT NEGATIVE (NEGATIVE) Blood Type Antibody Screen Administered Medications Discontinued Medications Clopidogrel Bisulfate (Clopidogrel Bisulfate 300 Mg Tab) 300 mg PO NOW STA Stop: 11/04/21 22:04 Last Admin: 11/04/21 22:11 Dose: 300 mg Documented by: [id number] Hydralazine HCl (Hydralazine Hcl 20 Mg/Ml Vial) 5 mg IV NOW STA Stop: 11/04/21 21:37 Last Admin: 11/04/21 21:39 Dose: 5 mg Documented by: [id number] Hydralazine HCl (Hydralazine Hcl 20 Mg/Ml Vial) 5 mg IV NOW ONE Stop: 11/04/21 22:04 Last Admin: 11/04/21 22:11 Dose: 5 mg Documented by: [id number] Sodium Chloride (Nss 1000ml) 500 mls @ 999 mls/hr IV .Q31M ONE Stop: 11/04/21 21:12 Last Infusion: 11/04/21 22:16 Dose: 0 mls/hr Documented by: [id number] Admin: 11/04/21 21:18 Dose: 999 mls/hr Documented by: [id number] Ioversol (Optiray 320 125ml) 120 ml IV ONCE ONE Stop: 11/04/21 21:15 Last Admin: 11/04/21 21:14 Dose: 120 ml Documented by: [id number] Imaging Data Radiologist's Impression: Brain CT without contrast: No acute infarct, bleed or acute intracranial abnormality. No change compared to the previous MRI. CT angio of the head: No aneurysm or large vessel occlusion. Moderate right maxillary sinus mucosal thickening. Probable chronic sinusitis. CT angio of the neck: No dissection or significant stenosis or vascular oc clusion. Discharge Plan Visit Data Chief Complaint: Neuro Symptoms/Deficit Stated Complaint: DOUBLE VISION,IMBALANCED,STOMACH UPSET,STROKE HX ED Provider: Marco Victoria Discharge Problem: Double vision, Stroke-like symptoms, Headache, Nausea, Hypertension Patient Disposition: Admitted As Inpatient Condition: Good Forms Stand Alone Forms: [facility] Prescriptions Prescriptions: No Action cyanocobalamin (vitamin B-12) 1,000 mcg tablet 1,000 mcg PO DAILY Qty: 30 RF: 0 folic acid 1 mg Tablet 1 mg PO QAM Qty: 30 RF: 0 atorvastatin 40 mg tablet 40 mg PO QPM Qty: 90 RF: 0 aspirin 81 mg tablet,delayed release (DR/EC) 81 mg PO QPM RF: 0 Flintstones Gummies Tablet,Chewable 2 tab PO QPM RF: 0 Referrals Referrals: Brett Quinonez CRNP [Primary Care Provider] -
[2021-11-04 20:57] LABS: Basophils # (auto) 0.06 K/uL (0-0.2); Basophils % (auto) 0.7 %; Eosinophils # (auto) 0.31 K/uL (0-0.5); Eosinophils % (auto) 3.9 %; Hematocrit (blood only) 41.8 % (37-47); Hemoglobin 14.1 g/dL (12.0-16.0); Immature Granulocytes # (auto) 0.01 K/uL (0.00-0.02); Immature Granulocytes % (auto) 0.1 %; Lymphocytes # (auto) 3.65 K/uL (1.2-3.4); Lymphocytes % (auto) 45.3 %; Mean Corpuscular Hgb Conc 33.7 g/dL (32-36); Mean Corpuscular Volume 94.8 fL (80-100); Mean Platelet Volume 8.8 fL (7.4-10.4); Monocytes # (auto) 0.65 K/uL (0.11-0.59); Monocytes % (auto) 8.1 %; Neutrophils # (auto) 3.37 K/uL (1.4-6.5); Neutrophils % (auto) 41.9 %; Platelet Count 232 K/uL (130-400); RDW Standard Deviation 45.2 fL (36.4-46.3); Red Blood Count 4.41 M/uL (4.2-5.4); White Blood Count 8.05 K/uL (4.8-10.8)
[2021-11-04 21:06] LABS: Partial Thromboplastin Time 26.7 Seconds (21.0-31.0); Prothrombin Time 10.2 Seconds (9.0-12.0)
[2021-11-04] MEDS ORDERED: OPTIRAY 320 125ml IV ONE (21:14)
[2021-11-04 21:23] LABS: Albumin Level 3.4 gm/dl (3.4-5.0); BUN Creatinine Ratio 12.2 (10-20); Blood Urea Nitrogen 11 mg/dl (7-18); Calcium 8.9 mg/dl (8.5-10.1); Carbon Dioxide 27 mmol/L (21-32); Creatinine Clr Calc Pharmacy 50.2 ml/min; Est GFR (African American) 84.7 ml/min; Est GFR (Non-African American) 73.1 ml/min; Glucose 93 mg/dl (70-99)
[2021-11-04 21:25] LABS: Alanine Aminotransferase 13 (12-78); Alkaline Phosphatase 53 U/L (45-117); Bilirubin,Total 0.3 mg/dl (0.2-1); Globulin 3.4 gm/dl (2.5-4.0); Total Protein 6.8 gm/dl (6.4-8.2); Troponin I < 0.015 ng/ml (0-0.045)
[2021-11-04] MEDS ORDERED: hydrALAZINE HCL 20 MG/ML VIAL IV STA (21:36)
[2021-11-04 21:51] LABS: Appearance Urine Clear (Clear); Bilirubin Urine Negative (Negative); Blood Urine Negative (Negative); Color Urine Yellow; Glucose Urine UA Negative (Negative); Ketones Urine Negative (Negative); Leukocyte Esterase Urine Negative (Negative); Nitrite Urine Negative (Negative); Protein Urine Negative (Negative); Specific Gravity Urine 1.045 (1.000-1.030); Urobilinogen Urine Negative (Negative)
[2021-11-04 21:53] LABS: Magnesium 2.2 mg/dl (1.8-2.4)
[2021-11-04 22:00] LABS: Sodium 136 mmol/L (136-145)
[2021-11-04 22:00] LABS: Potassium 3.6 mmol/L (3.5-5.1)
[2021-11-04] MEDS ORDERED: hydrALAZINE HCL 20 MG/ML VIAL IV ONE (22:03)
[2021-11-04] MEDS ORDERED: CLOPIDOGREL BISULFATE 300 MG TAB PO STA (22:03)
[2021-11-04 22:18] LABS: Chloride 105 mmol/L (98-107)
--- NOTE | 2021-11-04 23:53 | History & Physical Report ---
Date of Service November 04, 2021 Assessment & Plan (1) Double vision: Plan: 51 yo F w/ pMHx. of CVA, smoking use, COPD, hyperhomocysteinemia presents with double vision admit for observation to med/surg with tele Stroke evaluation Symptoms have nearly resolved but consist of diplopia and right sided facial weakness with forehead sparing concerning for stroke Risk factors include elevated homocysteine and smoking history. CT head without contrast and CTA head and neck without acute changes. ECHO from January without ASD Prior hypercoag. workup was negative for protein C, S, factor 5, anti-thrombin 3, Lupus anticoag., antiphospholipid panel. Homocysteine was slightly elevated at 16.9 on 03/17 The elevation in homocysteine is likely related to smoking history, with no medications that would cause the elevation. - ordered homocysteine level and MTHFR gene, although these are reference labs - monitor on telemetry floor - stoke protocol without tPA utilized (tPA not given due to improved symptoms) - neurology consulted - continue ASA, statin, folate, B12 - speech, PT and OT consulted - lipid profile and a1c for further risk stratification - allow for permissive hypertension Tobacco use - continue to encourage smoking cessation COPD, without exacerbation clear lung sounds on exam - PRN duonebs available - encourage tobacco cessation as above Code: Full Diet: Regular DVT: Heparin History of Present Illness Chief Complaint: diplopia Primary Care Provider: AIDE Starr is here for diplopia. She has a past medical history of CVA, TIA, COPD, elevated homocysteine level, smoking history and anxiety presenting with symptoms consistent with her prior stroke. She woke up this morning and felt tired and had a right sided headache / soreness. She slept "off-and-on" throughout the day. She then went out and developed dizziness, nausea without vomiting and noted that she was having diplopia. The diplopia was/is vertical and both images appear the same (no ghost or more transparent image). She also notes feeling confused and off balanced but this has been going on "off-and-on for a while". She has been taking her aspirin and statin but has not been taking her folate and B12. She continues to smoke and is currently cutting down to 8 cigarettes per day, no alcohol and 1-2 times a day will smoke marijuana from a pipe. ER course: stroke alert called, plavix given, hydralazine IV, IVF, CTA head and neck and CTH Allergies Allergy/AdvReac Type Severity Reaction Status Date / Time No Known Allergies Allergy Verified 11/04/21 20:51 Home Medications Medication Instructions Recorded Confirmed Type aspirin 81 mg tablet,delayed 81 mg PO QPM 04/03/21 11/04/21 History release pediatric multivitamin no.49 2 tab PO QPM 04/03/21 11/04/21 History (Flintstones Gummies) atorvastatin 40 mg tablet 40 mg PO QPM #90 tab 08/15/21 11/04/21 Rx cyanocobalamin (vitamin B-12) 1,000 mcg PO DAILY #30 tab 08/15/21 11/04/21 Rx 1,000 mcg tablet folic acid 1 mg tablet 1 mg PO QAM #30 tab 08/15/21 11/04/21 Rx Past Med/Surg History Medical History Anxiety no meds B12 deficiency COPD with emphysema Current smoker CVA (cerebral vascular accident) x2--02/06/2021 and 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 Bro Hyperhomocysteinemia Irregular heart beat follows with Dr. Feldman Surgical History History of bilateral tubal ligation History of laparoscopy History of transesophageal echocardiography ([facility]) (~04/02/21) S/P cataract surgery bilt Family History Mother Heart disease Hypertension Father , aged 34 of a motor vehicle accident No problems noted. Brother Family history of diabetes mellitus Grandmother (Paternal) Family history of diabetes mellitus Family hx of colon cancer Other Coronary heart disease Diabetes No family history of adverse response to anesthesia Social History Smoking Status: Current every day smoker Tobacco Type: Cigarettes Cigarettes Per Day: 0.5 packs/day; Second Hand Exposure: No; Hx Alcohol Use: Yes Alcohol type: wine Alcohol Intake Frequency Comment: 1-2 drinks per month Hx Substance Use: No Preferred Language: Yakut Communication Ability: Effective Professor Of Medicine Required: No Beliefs That Will Affect Care: None Current Living Situation: Spouse and Family Current Living Situation Comment: Lives with and son 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: employed 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 Feels Safe at Home: Yes Assistive Devices: None Review of Systems Review of Systems: Constitutional: denies fevers, vomiting, weight loss admits chills, nausea Head: denies trauma admits headache, confusion, lightheadedness, vision changes Neurologic: denies slurring of speech, focal weakness admits decreased sensation over right lower face ENT: deneis stuffiness, sore throat admits rhinorrhea (chronic) Cardiac: denies chest pain admits palpitations 2 times a day that she feels like may be related to her anxiety or similar to a panic attack pulm.: admits cough (relates to COPD), and small amount of clear sputum prod uction GI: denies constipation, blood in stool admits diarrhea : denies urgency, frequency, pain Physical Exam Constitutional: well developed and well nourished; no acute distress Eyes: PERRL, conjunctivae normal, anicteric sclerae ENMT: external ear and nose normal, oropharynx normal Neck: normal visual inspection Respiratory: normal respiratory effort, lungs clear to auscultation Cardiovascular: RRR, no murmur, no edema Gastrointestinal (Abdomen): normal bowel sounds, soft, nontender, no hepa tosplenomegaly Musculoskeletal: no cyanosis or clubbing, extremities motor strength 5/5 Skin: no rashes, warm and dry Neurologic: Speech / Cognition: normal speech Motor/Sensory: no tremor, normal movement and no pronator drift Cranial Nerves: PERRL, EOM intact bilaterally, normal facial strength, tongue midline, normal hearing, able to rotate head bilaterally, able to elevate shoulders bilaterally and no nystagmus Coordination: normal ubedth-yu-[id number] test - diplopia vertical present with left and right eye covered - decreased sensation in the right face with forehead sparing - strength in the upper and lower extremity intact and symmetric Psychiatric: A+Ox3, euthymic affect Results & Data Results & Data ([facility]) Vital Signs (Past 12 Hours) Vital Signs Temp Pulse Pulse Resp BP BP Pulse Ox 11/04/21 22:46 80 18 157/93 H 98 11/04/21 22:20 82 16 141/106 H 98 11/04/21 22:15 77 18 98 11/04/21 22:10 81 17 152/93 H 98 11/04/21 22:05 81 13 99 11/04/21 22:00 79 21 175/100 H 98 11/04/21 21:55 75 27 H 171/96 H 98 11/04/21 21:50 77 22 162/92 H 98 11/04/21 21:45 79 166/122 H 99 11/04/21 21:30 72 173/100 H 98 11/04/21 21:23 71 156/98 H 96 11/04/21 21:19 96 11/04/21 21:00 70 23 95 11/04/21 20:45 72 22 156/90 H 96 11/04/21 20:26 37.0 C 82 18 147/90 H 96 CBC Results Results Complete Blood Count Results: RBC 4.41 M/uL (4.2-5.4) 11/04/21 WBC 8.05 K/uL (4.8-10.8) 11/04/21 Hgb 14.1 g/dL (12.0-16.0) 11/04/21 Hct 41.8 % (37-47) 11/04/21 Plt Count 232 K/uL (130-400) 11/04/21 Chemistry (BMP) Results BMP Results: Sodium 136 mmol/L (136-145) 11/04/21 Potassium 3.6 mmol/L (3.5-5.1) 11/04/21 Chloride 105 mmol/L (98-107) 11/04/21 Carbon Dioxide 27 mmol/L (21-32) 11/04/21 Anion Gap 1.0 (3-11) L 11/04/21 BUN 11 mg/dl (7-18) 11/04/21 Creatinine 0.92 mg/dl (0.6-1.2) 11/04/21 Glucose 93 mg/dl (70-99) 11/04/21 Code Status & VTE Plan VTE Prophylaxis Plan VTE Prophylaxis will be ordered: Yes Supervising Physician Co-Signing Physician Notes Attending addendum: I have physically seen this patient, have supervised the medical residents act ivities, and agree with the H&P unless as otherwise noted. Assessment and Plan: Strokelike symptoms- Recurrent symptoms as at previous admissions CT head and CTA head neck without acute changes MRI brain ordered and pending Risk factors include homocystinemia, tobacco use disorder, and unclear whether she is actually taking aspirin, folic acid and atorvastatin as directed Consult PT/OT/speech/neurology Check fasting lipid panel and hemoglobin A1c Permissive hypertension Tobacco use disorder- Cessation counseling Remaining orders and notations as noted Resident Activity Tracking Resident Involvement: Resident Care Provided Care Provided: Adult Hospital Medicine
[2021-11-05] MEDS ORDERED: ALBUT/IPRATROP 3MG/0.5MG NEB 3 ML VIAL NEB PRN (02:45)
[2021-11-05] MEDS ORDERED: PHARMACIST DISCHARGE MED REC CONSULT PRN (02:45)
[2021-11-05] MEDS ORDERED: POLYETHYLENE (MIRALAX) 17 GM PACK PO PRN (02:45)
[2021-11-05] MEDS ORDERED: SODIUM CHLORIDE 0.9% 1000ML 1,000 ML IV SCH (02:45)
[2021-11-05] MEDS ORDERED: ACETAMINOPHEN 325 MG TAB PO PRN (02:45)
--- NOTE | 2021-11-05 05:58 | Billing Data ---
Date of Service November 05, 2021 Coding Level of Care Code INT OBSERVATION CARE 70M LVL 3
[2021-11-05 06:15] LABS: Basophils # (auto) 0.08 K/uL (0-0.2); Basophils % (auto) 1.3 %; Eosinophils # (auto) 0.31 K/uL (0-0.5); Eosinophils % (auto) 4.9 %; Hematocrit (blood only) 41.1 % (37-47); Hemoglobin 13.9 g/dL (12.0-16.0); Lymphocytes # (auto) 2.66 K/uL (1.2-3.4); Lymphocytes % (auto) 42.2 %; Mean Corpuscular Hemoglobin 32.2 pg (25-34); Mean Corpuscular Hgb Conc 33.8 g/dL (32-36); Mean Corpuscular Volume 95.1 fL (80-100); Mean Platelet Volume 8.8 fL (7.4-10.4); Monocytes # (auto) 0.59 K/uL (0.11-0.59); Monocytes % (auto) 9.4 %; Neutrophils # (auto) 2.67 K/uL (1.4-6.5); Neutrophils % (auto) 42.2 %; Platelet Count 216 K/uL (130-400); RDW Coefficient of Variation 13.1 % (11.5-14.5); RDW Standard Deviation 46.3 fL (36.4-46.3); Red Blood Count 4.32 M/uL (4.2-5.4); White Blood Count 6.31 K/uL (4.8-10.8)
[2021-11-05 06:44] LABS: BUN Creatinine Ratio 11.3 (10-20); Calcium 8.2 mg/dl (8.5-10.1); Creatinine Clr Calc Pharmacy 71.1 ml/min; Est GFR (African American) 120.8 ml/min; Est GFR (Non-African American) 104.3 ml/min; Potassium 3.8 mmol/L (3.5-5.1)
--- NOTE | 2021-11-05 07:17 | CT Scan Report ---
UNENHANCED CT OF THE BRAIN; CT ANGIOGRAM OF THE BRAIN; CT ANGIOGRAM OF THE NECK CLINICAL HISTORY: Strokelike symptoms. Diplopia. COMPARISON STUDY: CT angiogram of the head and neck dated 08/14/2021 and 03/16/2021. TECHNIQUE: Unenhanced axial CT scan of the brain is performed. Subsequently, following the IV adminis tration of 120 of Optiray 320, CT angiogram of the head and neck was performed from the aortic arch t o the vertex. Images are reviewed in the axial, sagittal, and coronal planes. 3-D MIPS images are cre ated and assessed. IV contrast was administered without complication. All measurements were calculate d based on NASCET criteria. A dose lowering technique was utilized adhering to the principles of ALA RA. CT DOSE: 849.34 mGy.cm FINDINGS: Brain parenchyma: A small chronic lacunar infarct is noted in the left thalamus. There is no hemorrha ge, mass effect, or evidence of acute territorial ischemia by CT criteria. There is no evidence of en hancing mass lesion on the angiogram phase images. The ventricles, sulci, and cisterns are normal in configuration. Linder-white matter differentiation is preserved. No extra-axial fluid collection is see n. Thoracic aorta: Visualized portions of the thoracic aorta are normal in caliber. The aortic arch demo nstrates standard 3-vessel anatomy. Right carotid arterial system: The right common carotid artery is widely patent, as are the right int ernal and external carotid arteries. Left carotid arterial system: The left common carotid artery is widely patent, as are the left general internist and physician leader al and external carotid arteries. Vertebral arteries: The vertebral arteries are widely patent bilaterally and codominant. Subclavian arteries: Widely patent bilaterally. Intracranial vasculature: There is a large right posterior communicating artery. The internal carotid arteries are patent at the skull base, as are the anterior and middle cerebral arteries bilaterally. The vertebrobasilar system and posterior cerebral arteries are widely patent. The vertebral arteries are codominant. There is no aneurysm, high-grade stenosis, or focal vessel cut off seen throughout t he intracranial circulation. Jugular veins: Patent bilaterally. Dural sinuses: Patent. Lung apices: Emphysematous change is noted. Upper lobe lung parenchyma is otherwise clear as visualiz ed. Soft tissues: The visualized pharyngeal soft tissues are normal in appearance noting angiographic pha se technique. The oropharyngeal airway appears widely patent. The salivary and thyroid glands are nor mal in appearance. No cervical lymphadenopathy is seen. Skeletal structures: The calvarium appears intact. The cervical spine is within normal limits. Orbits: The bony orbits are intact. Orbital contents are normal as visualized note that bilateral ocu lar lens implants. Sinuses and mastoids: There is moderate mucosal thickening in the right maxillary antrum. Trace mucos al thickening is also seen within the ethmoid sinuses. The mastoid air cells are well pneumatized. IMPRESSION: 1. There is no hemorrhage, mass effect, or evidence of acute territorial ischemia by CT criteria. 2. Unremarkable CT angiogram of the brain. No change from 08/14/2021. 3. Unremarkable CT angiogram of the neck. No change from 08/14/2021. 4. Emphysema. ACT 112: Negative or not required by law. Electronically signed by: Marco Helms M.D. 11/05/2021 7:16 AM
[2021-11-05 07:47] LABS: Estimated Average Glucose 108 mg/dl; Hemoglobin A1C 5.4 % (4.5-5.6)
[2021-11-05] MEDS ORDERED: FOLIC ACID 1 MG TAB PO SCH (09:00)
[2021-11-05] MEDS ORDERED: HEPARIN SOD 5,000 UNIT/0.5 ML VIAL SQ SCH (09:00)
[2021-11-05] MEDS ORDERED: CYANOCOBALAMIN 500 MCG TABLET (VITAMIN B-12) PO SCH (09:00)
--- NOTE | 2021-11-05 09:37 | Neurology Consultation ---
Date of Consultation November 05, 2021 Assessment & Plan (1) Double vision: (2) Numbness and tingling of right arm and leg: (3) CVA (cerebral vascular accident): (4) Headache: (5) Fatigue: patient had the new onset of what is consistent with a migrainous headache along with vertical diplopia and right-sided dysesthesias. She still has the dysesthesias but she has no object of neurologic deficits on exam, meningeal signs, or encephalopathy. The symptoms are consistent with the symptoms she had during other hospitalizations including her original hospitalization in January of 2021, in which she had a small brainstem stroke. I believe this time she had a migraine headache, of a complicated nature, which included the ongoing right-sided dysesthesias. She is probably bringing out the old stroke symptoms with this migraine. Nevertheless, a small new stroke cannot be excluded. Her risk factors for stroke include longstanding cigarette smoking and hypertension. She has been noncompliant with her statin. Echocardiogram including SONIA were unremarkable. The patient has significant fatigue in easy fatigability. Recommendations: 1. MRI of the brain without contrast to evaluate for new stroke, attention brainstem 2. consider TSH, iron studies, B12, B1, folate and B6 levels. 3. reinforce need to take statin on a daily basis, 81 milligram aspirin, and discontinue all cigarette smoking. 4. This patient has had CT angiography of the head neck 4 times this year. They are always normal and I see no need to repeat CT angiography in the near future regarding her head and neck. 5. consider treating blood pressure with verapamil. This has the advantage of being an excellent medicine to prevent vasospasm/migraine Overall, we spent a total of 120 minutes with this case including review of records, review of MRI films, direct evaluation the patient at bedside, and discussion of the case with the patient at bedside, RN at bedside, and Dr. Campos including differential diagnosis and treatment options. History of Present Illness Reason for Consultation: Patient is a 51-year-old, who I was asked to see at the request of Dr. Campos, for neurologic consultation regarding new onset double vision and right-sided dysesthesias. Requesting Physician: Dr. Campos Attending Physician: Karissa Campos MD History of Present Illness I 1st saw this patient in January of 2021. At that time she had had the sudden onset of a vertiginous type dizziness with double vision and off balance feelings. There was right facial dysesthesias, slurred speech, and weakness of the right arm and leg. I thought on exam she had a mild right 3rd nerve palsy. Initial MRI of the brain was unremarkable but repeat MRI day or so later showed a left mid brain stroke. Patient's symptoms cleared. She was told to stop cigarette smoking and take atorvastatin 81 milligram aspirin daily. At that time CT angiography of head and neck. Anticardiolipin antibodies and other clotting studies were unremarkable. In February of this year she came in with similar symptoms and received tPA. CT scan of the head and repeat CT angiography of the head neck and MRI were unremarkable. She saw Dr. Bro. Her symptoms resolved and she was told to take aspirin and atorvastatin. She admits to not being compliant these. Transesophageal echocardiogram was unremarkable and there was no atrial septal defect. She returned in July of this year with a vertical diplopia, generalized weakness and right-sided facial symptoms. Once again, she has been noncompliant on medication although she cut her cigarette smoking down to half pack a day. CT scan of the head, CT angiography of the head neck and MRI of the brain were all unremarkable no acute changes. 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 She has been somewhat tired and easily fatigued recently but this was particularly so when she woke up at 10 a.m. on November 04. He also had a occipital headache of a throbbing nature and noted nausea and photophobia. The patient took a nap in the afternoon an episode of diarrhea and still had the fatigue and headache. While shopping in the evening at 1930, still fatigued with the headache, she had the sudden onset of double vision ( with images stacked on top of each other vertically, occurring in any direction ) as well as right-sided dysesthesias in the face arm and leg. There was a concern of lucho ghosh based on her calling her niece the wrong name. She arrived to the emergency room at 2025 on November 04, with a temperature 37.0, pulse 82 and regular, respiratory rate 18, blood pressure 147/90, and O2 saturation 96 percent. Exam was nonfocal but there may have been some right lower extremity weakness. No eye issues were noted. She was not given tPA. CT scan of the head, CT angiography of the head neck, again were all unremarkable. CBC and Chem profile were unremarkable. The patient felt that her double vision went away by the coremaker supervisor hours this morning and her headache resolved as well. She is still having dysesthesias of the right face arm and leg. It does not involve her trunk. The patient states that she is still smoking about a half pack cigarettes per day, but is not drinking alcohol at all. She admits to smoking marijuana about twice per day. Allergies Allergy/AdvReac Type Severity Reaction Status Date / Time No Known Allergies Allergy Verified 11/04/21 20:51 Home Medications Medication Instructions Recorded Confirmed Type aspirin 81 mg tablet,delayed 81 mg PO QPM 04/03/21 11/04/21 History release pediatric multivitamin no.49 2 tab PO QPM 04/03/21 11/04/21 History (Flintstones Gummies) atorvastatin 40 mg tablet 40 mg PO QPM #90 tab 08/15/21 11/04/21 Rx cyanocobalamin (vitamin B-12) 1,000 mcg PO DAILY #30 tab 08/15/21 11/04/21 Rx 1,000 mcg tablet folic acid 1 mg tablet 1 mg PO QAM #30 tab 08/15/21 11/04/21 Rx Patient History Medical History Anxiety no meds B12 deficiency COPD with emphysema Current smoker CVA (cerebral vascular accident) x2--02/06/2021 and 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 Bro Hyperhomocysteinemia Irregular heart beat follows with Dr. Feldman Surgical History History of bilateral tubal ligation History of laparoscopy History of transesophageal echocardiography (SONIA) (~04/02/21) S/P cataract surgery bilt Family History Mother Heart disease Hypertension Father , aged 34 of a motor vehicle accident No problems noted. Brother Family history of diabetes mellitus Grandmother (Paternal) Family history of diabetes mellitus Family hx of colon cancer Other Coronary heart disease Diabetes No family history of adverse response to anesthesia Social History Smoking Status: Current every day smoker Tobacco Type: Cigarettes Cigarettes Per Day: 0.5 packs/day; Second Hand Exposure: No; Hx Alcohol Use: Yes Alcohol type: wine Alcohol Intake Frequency Comment: 1-2 drinks per month Hx Substance Use: No Preferred Language: Mongolian Communication Ability: Effective Clothing Consultant Required: No Beliefs That Will Affect Care: None Current Living Situation: Spouse and Family Current Living Situation Comment: Lives with and son 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: employed 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 Feels Safe at Home: Yes Assistive Devices: None Review of Systems Constitutional: + fatigue; no fever and no weakness Eyes: no diplopia, no eye pain and no worsening vision Ear, Nose, Mouth, Throat: no ear pain, no tinnitus, no hearing loss, no dizziness, no snoring, no hoarseness and no dysphagia Respiratory: + dyspnea; no cough Cardiovascular: + palpitations; no chest pain and no lightheadedness Gastrointestinal: no abdominal pain, no nausea and no vomiting Genitourinary: no dysuria, no urinary frequency and no urinary incontinence Musculoskeletal: no back pain, no neck pain, no radicular pain, no joint pain and no myalgia Integumentary: no rash and no lesions Neurologic: + numbness; no gait abnormality, no localized weakness, no generalized weakness, no tingling, no tremor(s), no abnormal movements, no headache(s), no abnormal speech, no confusion and no memory loss Psychiatric: + anxiety; no depression, no irritability, no difficulty concentrating, no confusion and no hallucinations Endocrine: no fatigue and no flushing Hematologic / Lymphatic: no easy bleeding and no easy bruising Allergy / Immunological: no urticaria and no problem reported Exam (Neuro) Physical Exam: The patient is right-handed. The patient is awake, alert, and attentive. Speech is normal without any aphasia or dysarthria. The patient can name objects, repeat phrases, and has normal spontaneous speech. Mentation and thought processes are intact, with orientation to person, place and time, and normal fund of knowledge. Attention and concentration are normal. Mood and affect are normal and appropriate. General appearance and grooming are normal. Short and long-term memory are intact. The discs are sharp with positive venous pulsations bilaterally. There are no exudates, hemorrhages, or blood vessel changes seen. Pupils are 3 mm bilaterally and reactive to light. Extraocular eye muscles are intact without nystagmus. Visual acuity and visual etienne seem normal grossly to confrontation. There are no deficits to sensation in the face in all 3 distributions of the fifth cranial nerve bilaterally. Corneal reflexes are positive bilaterally. Facial strength and symmetry was normal bilaterally. Hearing seems normal bilaterally. Palate moves well without asymmetry. There is normal sternocleidomastoid and trapezius (shoulder shrug) strength bilaterally. Tongue is midline with good strength bilaterally. Neck has a full range of motion without discomfort. There are no cervical bruits bilaterally. There are no cranial or ocular bruits. Heart is without murmur. There is a regular rhythm and rate. Cervical, thoracic, and lumbar spine are nontender to palpation. Gait is narrow based, with good arm swing, turns, and stance. Balance is reasonable with feet together and eyes open but she sways some with eyes closed With outstretched arms there is no drift. There are no resting, postural, or action tremors. There is no ataxia with finger to nose testing. There is good facility in the hands. No other abnormal involuntary movements are noted. Motor strength is 5/5 diffusely in the arms bilaterally including deltoids, biceps, triceps, brachioradialis, wrist flexors and extensors, drop forge operator, and intrinsic hand muscles. Motor strength is 5/5 diffusely in the legs bilaterally including hip flexors, quadriceps, hamstrings, gastrocnemius, tibialis anterior, tibialis posterior, and Peroneii muscles. Toe extensors are normal and there is good bulk in the extensor digitorum brevis muscles bilaterally. The limbs have good tone without rigidity or spasticity. There is no atrophy noted in the muscles. Muscle bulk is normal, there is no tenderness to palpation, no myotonia to percussion, and no fasciculations seen. Sensory examination reveals some decreased sensation to pin and touch on the right face ( all 3 distributions of the 5th cranial nerve), right upper extremity and right lower extremity both diffusely. Reflexes are 2/4 in the biceps, triceps, brachioradialis, quadriceps, and Achilles tendons bilaterally. There is no clonus bilaterally. Toes are downgoing with plantar stimulation bilaterally. Peripheral pulses are present and of normal quality distally in all 4 limbs. There is no peripheral edema noted in the limbs. Results & Data ([facility]) Vital Signs (Past 12 Hours) Vital Signs Pulse Pulse Resp BP BP Pulse Ox 11/04/21 22:46 80 18 157/93 H 98 11/04/21 22:20 82 16 141/106 H 98 11/04/21 22:15 77 18 98 11/04/21 22:10 81 17 152/93 H 98 11/04/21 22:05 81 13 99 11/04/21 22:00 79 21 175/100 H 98 11/04/21 21:55 75 27 H 171/96 H 98 11/04/21 21:50 77 22 162/92 H 98 11/04/21 21:45 79 166/122 H 99 11/04/21 21:30 72 173/100 H 98 11/04/21 21:23 71 156/98 H 96 PG Care Time/CCT Total # of Minutes Spent Total Time Spent with Patient: Total time spent is greater than 50% in coordination of care (as documented) at patient's floor/unit and/or counseling patient: Coding Level of Care Code 96007 Office/OBS Consult Lvl 5 Diagnoses Double vision H53.2 Numbness and tingling of right arm and leg R20.0; R20.2 CVA (cerebral vascular accident) I63.9 CVA mechanism: unspecified Headache R51.9 Headache chronicity pattern: acute headache Headache type: unspecified Intractability: not intractable Fatigue R53.83 Time Spent (min) 120 Comment add Modifiers as able (1) CVA (cerebral vascular accident) CVA mechanism: unspecified Qualified Code(s): I63.9 - Cerebral infarction, unspecified (2) Headache Headache chronicity pattern: acute headache Headache type: unspecified Intractability: not intractable Qualified Code(s): R51.9 - Headache, unspecified
[2021-11-05] MEDS ORDERED: GADOBUTROL 65ML VIAL IV ONE (12:23)
--- NOTE | 2021-11-05 13:27 | Magnetic Resonance Report ---
Brain MRI WITH AND WITHOUT CONTRAST HISTORY: Double vision. Headache. stroke evaluation TECHNIQUE: Multiplanar multisequence MRI of the brain was performed both before and after the intrave nous administration of contrast. COMPARISON STUDY: Head CT 11/04/2021. Brain MRI 08/14/2021. FINDINGS: Mild motion artifact. No areas of restricted diffusion to suggest acute infarction. Midline structures are intact. Polypoid mucosal thickening within the right maxillary sinus, unchanged. Mild mucosal thickening within the ethmoid air cells are also noted. Evidence for prior bilateral lens re placement. The mastoid air cells are clear. The major vascular flow-voids at the skull base are well- maintained. There is no mass, hematoma, or midline shift. There is an old lacunar infarct within the left thalamus, unchanged. A few scattered punctate foci of T2 hyperintensity seen within the white ma tter of the supratentorial brain. These are also stable and are of doubtful clinical significance. Po stcontrast sequences show no areas of abnormal enhancement. IMPRESSION: No significant change compared to the prior study. No acute intracranial abnormality. ACT 112: Negative or not required by law. Electronically signed by: Dex Gusman M.D. 11/05/2021 1:26 PM
[2021-11-05] MEDS ORDERED: STROKE PATIENT DISCHARGE STA (15:25)
--- NOTE | 2021-11-05 16:59 | Discharge Summary ---
Date of Service November 05, 2021 Admission HPI Per Admitting Provider Brit Reeves is here for diplopia. She has a past medical history of CVA, TIA, COPD, elevated homocysteine level, smoking history and anxiety presenting with symptoms consistent with her prior stroke. She woke up this morning and felt tired and had a right sided headache / soreness. She slept "off-and-on" throughout the day. She then went out and developed dizziness, nausea without vomiting and noted that she was having diplopia. The diplopia was/is vertical and both images appear the same (no ghost or more transparent image). She also notes feeling confused and off balanced but this has been going on "off-and-on for a while". She has been taking her aspirin and statin but has not been taking her folate and B12. She continues to smoke and is currently cutting down to 8 cigarettes per day, no alcohol and 1-2 times a day will smoke marijuana from a pipe. ER course: stroke alert called, plavix given, hydralazine IV, IVF, CTA head and neck and CTH Admission Exam (Per Admitting) Constitutional GENERAL: Patient is in no acute distress. HEENT: No acute trauma, normocephalic atraumatic, mucous membranes moist, no nasal congestion, no scleral icterus. NECK: No stridor, no adenopathy, no meningismus, trachea is midline. LUNGS: Clear to auscultation bilaterally, no wheeze, no rhonchi, breath sounds equal. HEART: Without murmurs gallops or rubs, regular rate and rhythm. ABDOMEN: Soft, nontender, bowel sounds positive, no hernias, no peritonitis. EXTREMITIES: No cyanosis or edema, full range of motion of all the joints witho ut pain or difficulty, no signs for acute trauma. NEUROLOGIC: Oriented x 3. There is some difficulty with her holding her right leg in the air, a slight drift was seen. The left lower extremity had no drifting. No upper extremity drift. No speech slur or facial droop. No cerebellar dysfunction in the upper or lower extremities. SKIN: No rash, no jaundice, no diaphoresis Discharge Data Consultations 11/04/21 22:09 ED Decision to Admit Stat 11/05/21 02:45 Consult Neurology Routine Hospital Course (1) Stroke-like symptoms: 51 yo F w/ pMHx of CVA, smoking use, COPD, hyperhomocysteinemia, and anxiety presents with double vision and right-sided weakness. 1. Stroke-like symptoms: More likely complex migrainous episode vs sequelae of CVA/TIA vs new TIA - MRI of the brain (11/05) did not show any acute intracranial abnormalities and showed old lacunar infarct. CT Head without contrast and CTA were unremarkable. Resolution of symptoms in 6 hours without TPA or treatment. She likely had a migraine (experienced a pounding R-sided headache with aura). - Patient was previously on Lipitor, but has not taken it in a number of months. Lipid levels at this time are at goal. Advised to resume statin. Continue daily baby Aspirin. - Smoking Cessation: She states she has already cut down her smoking to 1/2-3 cigarettes/day. Patient in contemplative stage about quitting. She is open to the idea of gum/patches. - Hyperhomocysteinemia: Patient was unsure why she was taking vitamins/supplements. Consider re-starting B12 and folate. Migraine - Migraine control and prevention- - neuro recommendations: consider BP control with Verapamil if persistently high outpatient. Consider PRN abortive migraine medication. Sleep disturbance: - Patient takes 20 mg of Melatonin as needed for sleep. She only sleeps about 5.5-6 hours each night and consumes several liters of Mountain Dew. Consider addressing other potential causes of sleep disturbance such as obstructive sleep apnea as patient reports frequently waking up short of breath/needing to catch her breath. Consider sleep study in follow-up. COPD: - Patient wishes to restart an inhaler for her COPD. Consider restarting patient on an inhaler, consider getting up to date pulmonary function tests/spirometry testing in follow-up. Anxiety: - Patient expressed that her migrainous episode had an anxiety component and she experiences anxiety regularly. She would like to explore options for medication on a PRN basis. All other chronic medical conditions managed per home regimen. Supervising Physician Co-Signing Physician Notes Medical Student Supervision Note: I was personally present during medical student patient encounter and i ndependently interviewed and examined the patient and verified the davis history and physical, reviewed labs and image studies, discussed the case with Pricila Romo and agree with the findings and care plan. Negative work up for stroke. Presentation likely sec to migraine Started on verapamil for BP control and migraine prevention. Discussed compliance with medications - statin and aspirin. Discussed smoking cessation. Discussed further evaluation of sleep disturbance by PCP
[2021-11-05] MEDS ORDERED: MULTIVITAMIN CHEWABLE TAB PO SCH (21:00)
[2021-11-05] MEDS ORDERED: ATORVASTATIN 40 MG TAB PO SCH (21:00)
[2021-11-05] MEDS ORDERED: ASPIRIN 81 MG ECTAB PO SCH (21:00)
--- NOTE | 2021-11-06 15:39 | Electrocardiogram Report ---
Test Reason : Blood Pressure : / mmHG Vent. Rate : 070 BPM Atrial Rate : 070 BPM P-R Int : 130 ms QRS Dur : 072 ms QT Int : 394 ms P-R-T Axes : 087 079 082 degrees QTc Int : 425 ms Normal sinus rhythm Anterior infarct (cited on or before 04-NOV-2021) Abnormal ECG When compared with ECG of 14-AUG-2021 13:46, No significant change was found Confirmed by Dimitri Caal ([id number]) on 11/06/2021 3:39:20 PM Referred By: REFERRED SELF Confirmed By:Dimitri Caal
[2021-11-09 23:26] LABS: MTHFR POSITIVE
== END 2021-11-05 15:45 | disposition home or self-care (01) ==
LOC: EDINP 20:23 → ED 20:23 → SUATTDRO 23:39 → EDINP 11-05 02:42